=== PATIENT | male | born 1940 | race Caucasian/White ===

== ENCOUNTER → 2016-07-26 | Outpatient (CLI) | payer BC ==
[~2016-07-26] MED LIST: ASPI-435 PO; NXM/40 PO; [UNRECOGNIZED DRUG - CODE] PO
--- NOTE | 2016-07-26 16:35 | DIAGNOSTIC IMAGING REPORT ---
CHEST 2 VIEWS ROUTINE CLINICAL HISTORY: INFLUENZA A COMPARISON STUDY: 12/21/2015 FINDINGS: The cardiac and mediastinal contours remain stable. There is mild aortic tortuosity. There is no failure. There is no focal pulmonary consolidation. There are no pleural effusions. There are old right-sided rib fractures. There are minimal left basilar atelectatic changes.[ IMPRESSION: No active disease in the chest. Electronically signed by: Crow Whittaker M.D. 07/26/2016 4:34 PM Dictated Date/Time: 07/26/2016 4:33 PM
== END | disposition home or self-care (01) ==
LOC: C.RAD1850 16:13
PROVIDERS: ATTEND Family Medicine
DX: R05 Cough (principal); R50.9 Fever, unspecified; J10.1 Influenza due to other identified influenza virus with other respiratory manifestations

== ENCOUNTER 2017-08-11 23:00 | Emergency (ER) | payer BC ==
[~2017-08-11] VITALS: Ht 175.3 cm; Wt 91.1 kg
[2017-08-11 23:12] VITALS: TEMP 36.6; Ht 175.3 cm; Wt 91.1 kg
[2017-08-11] MEDS ORDERED: ONDANSETRON INJ 2 MG/ML 2 ML VIAL IV STA (23:27)
[2017-08-11] MEDS ORDERED: MoRPHine SULFATE 2 MG/ML CARP IV STA (23:27)
[2017-08-11] MEDS ORDERED: SODIUM CHLORIDE 0.9% 1000ML 1,000 ML IV STA (23:27)
[2017-08-11 23:54] LABS: BASO % 0.7 %; BASO ABS # 0.05 K/uL (0-0.2); EOS % 3.7 %; EOS ABS # 0.27 K/uL (0-0.5); HEMATOCRIT 42.7 % (42-52); HEMOGLOBIN 14.3 g/dL (14.0-18.0); IG# 0.02 K/uL (0.00-0.02); LYMPH % 24.3 %; LYMPH ABS # 1.76 K/uL (1.2-3.4); MEAN CELL VOLUME 86.4 fL (80-100); MEAN CORPUSCULAR HEMOGLOBIN 28.9 pg (25-34); MEAN CORPUSCULAR HGB CONC 33.5 g/dl (32-36); MEAN PLATELET VOLUME 10.2 fL (7.4-10.4); MONO % 11.1 %; NEUT % 59.9 %; NEUT ABS # 4.33 K/uL (1.4-6.5); PLATELET COUNT 193 K/uL (130-400); RED CELL DISTRIBUTION WIDTH CV 13.3 % (11.5-14.5); RED CELL DISTRIBUTION WIDTH SD 42.1 fL (36.4-46.3); WHITE BLOOD COUNT 7.23 K/uL (4.8-10.8)
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
[2017-08-12 00:33] LABS: ALBUMIN 3.8 gm/dl (3.4-5.0); CALCIUM 9.5 mg/dl (8.5-10.1); CREATININE 1.32 mg/dl (0.60-1.40); POTASSIUM 4.4 mmol/L (3.5-5.1); TOTAL PROTEIN 7.2 gm/dl (6.4-8.2)
[2017-08-12] MEDS ORDERED: MoRPHine SULFATE 2 MG/ML CARP IV STA (00:52)
[2017-08-12] MEDS ORDERED: LOSA50TA6 PO (01:00)
[2017-08-12] MEDS ORDERED: HydrALAZINE HCL 20 MG/ML VIAL IV. STA (01:33)
[2017-08-12] MEDS ORDERED: ACETAMINOPHEN 325 MG TAB PO STA (01:35)
[2017-08-12] MEDS ORDERED: CYCLOBENZAPRINE HCL 10 MG TAB PO STA (01:35)
[2017-08-12 02:24] VITALS: BP 162/92; PULSE 80; O2SAT 98
[2017-08-12] MEDS ORDERED: CYCL5TAB PO (02:41)
--- NOTE | 2017-08-12 06:50 | DIAGNOSTIC IMAGING REPORT ---
CHEST ONE VIEW PORTABLE CLINICAL HISTORY: Right upper back pain. COMPARISON STUDY: Chest radiograph July 31, 2016. FINDINGS: Multiple old right-sided rib fractures are noted. Lung volumes are normal. No pneumothorax or pleural effusion is noted. There is no consolidation to suggest pneumonia. Mild bibasilar opacities favor atelectasis. No evidence for pulmonary edema. IMPRESSION: No acute cardiopulmonary findings. No change in appearance of the chest. Electronically signed by: Valdemar Evans M.D. 08/12/2017 6:48 AM Dictated Date/Time: 08/12/2017 6:47 AM
--- NOTE | 2017-08-12 07:31 | DIAGNOSTIC IMAGING REPORT ---
CT SCAN OF THE ABDOMEN AND PELVIS WITHOUT CONTRAST CLINICAL HISTORY: right flank pain, kidney stone COMPARISON STUDY: 06/19/2006 TECHNIQUE: CT scan of the abdomen and pelvis was performed from the lung bases to the proximal femurs. Images are reviewed in the axial, sagittal, and coronal planes. IV contrast was not administered for this examination. A dose lowering technique was utilized adhering to the principles of ALARA. CT DOSE: 631.53 mGy.cm FINDINGS: Lower chest: There are mild dependent atelectatic changes Liver: The unenhanced liver is normal in size, contour, and attenuation. There is no intrahepatic biliary ductal dilatation. Gallbladder: Cholelithiasis Spleen: Mildly enlarged measuring 13 cm Pancreas: Unremarkable. Adrenal glands: Unremarkable. Kidneys: There is a punctate nonobstructing right renal calculus. There is no hydronephrosis. No ureteral or bladder calculi are visualized. There is an 8.4 cm left renal cyst. Bowel: Postsurgical changes are present within the sigmoid colon. There are no transition zones indicate bowel obstruction. There is no evidence of acute appendicitis. There is no evidence of acute diverticulitis. Peritoneum: There is no intraperitoneal free air or abdominal ascites. There is a right internal hernia which contains a knuckle of small bowel. There is no current evidence of obstruction. There is a fat-containing umbilical hernia. There are fat-containing ventral hernias. Vasculature: The abdominal aorta is normal in course and caliber. Adenopathy: None. Pelvic viscera: The bladder, and pelvic viscera are unremarkable. Skeletal structures: No destructive osseous lesions are seen. IMPRESSION: 1. Punctate nonobstructing left renal calculus 2. 8.4 cm left renal cyst 3. Cholelithiasis 4. No evidence of bowel obstruction. No evidence of free air. 5. Right internal hernia and multiple fat-containing ventral hernias Electronically signed by: Crow Whittaker M.D. 08/12/2017 7:30 AM Dictated Date/Time: 08/12/2017 7:25 AM
== END 2017-08-12 02:43 | disposition home or self-care (01) ==
LOC: C.EDB 23:01 → C.EDC 08-12 02:43
DX: S23.3XXA Sprain of ligaments of thoracic spine, initial encounter (principal); I10 Essential (primary) hypertension; X58.XXXA Exposure to other specified factors, initial encounter; Y93.H1 Activity, digging, shoveling and raking; Y92.008 Other place in unspecified non-institutional (private) residence as the place of occurrence of the external cause; Z79.82 Long term (current) use of aspirin; Z87.442 Personal history of urinary calculi; Z88.8 Allergy status to other drugs, medicaments and biological substances; Z80.9 Family history of malignant neoplasm, unspecified; Z83.79 Family history of other diseases of the digestive system; Z82.49 Family history of ischemic heart disease and other diseases of the circulatory system

== ENCOUNTER → 2017-08-16 | Outpatient (CLI) | payer BC ==
[~2017-08-16] MED LIST changes: +CYCL5TAB PO; +LOSA50TA6 PO; -[UNRECOGNIZED DRUG - CODE] PO
[2017-08-16 09:51] LABS: BLOOD UREA NITROGEN 21 mg/dl (7-18); CALCIUM 9.8 mg/dl (8.5-10.1); CARBON DIOXIDE 30 mmol/L (21-32); CREATININE 1.43 mg/dl (0.60-1.40); GLUCOSE 97 mg/dl (70-99); POTASSIUM 4.3 mmol/L (3.5-5.1); SODIUM 139 mmol/L (136-145)
== END | disposition home or self-care (01) ==
LOC: C.LAB 08:51
PROVIDERS: ATTEND Physician Assistant
DX: I10 Essential (primary) hypertension (principal)

== ENCOUNTER → 2017-08-20 | Outpatient (CLI) | payer BC ==
--- NOTE | 2017-08-20 14:03 | DIAGNOSTIC IMAGING REPORT ---
THORACIC SPINE 3 VIEWS ROUTINE HISTORY: 77 years-old Male S29.019A acute severe right-sided back and rib pain COMPARISON: Chest radiographs 07/26/2016 TECHNIQUE: 3 views of the thoracic spine FINDINGS: Multilevel endplate spurring with intervertebral disc space narrowing is noted throughout the thoracic spine. The upper thoracic segments are somewhat subvisualized secondary to positioning. Alignment is satisfactory. No acute compression deformity identified. Imaged lung elliott and soft tissues are unremarkable. There is atherosclerosis of the aorta. The cardiac silhouette appears enlarged however is only partially imaged. IMPRESSION: Degenerative changes without acute fracture or subluxation identified. The above report was generated using voice recognition software. It may contain grammatical, syntax or spelling errors. Electronically signed by: Reji Tavarez M.D. 08/20/2017 2:02 PM Dictated Date/Time: 08/20/2017 2:00 PM
--- NOTE | 2017-08-20 14:11 | DIAGNOSTIC IMAGING REPORT ---
R RIBS UNILATERAL WITH PA CHEST CLINICAL HISTORY: 77 years-old Male presenting with S29.019A. TECHNIQUE: Frontal and oblique views of the right ribs as well as PA view of the chest were obtained. COMPARISON: Chest x-ray from 08/12/2017. FINDINGS: Atherosclerosis and tortuosity of the thoracic aorta. Cardiac silhouette normal in size. Lungs and pleural spaces remain clear. Deformities of the right posterior lateral sixth through ninth ribs consistent with old fracture deformities. No convincing evidence of an acute displaced right rib fracture. Chronic fracture of the lesser tubercle of the right humerus. Moderate stool burden in the right colon. IMPRESSION: 1. No convincing evidence of acute displaced right rib fracture. 2. Multiple old right rib fractures. 3. No acute cardiopulmonary disease. Electronically signed by: Сергей Pereyra M.D. 08/20/2017 2:09 PM Dictated Date/Time: 08/20/2017 2:06 PM
== END | disposition home or self-care (01) ==
LOC: C.RAD 12:56
PROVIDERS: ATTEND Physician Assistant
DX: S29.019A Strain of muscle and tendon of unspecified wall of thorax, initial encounter (principal); X58.XXXA Exposure to other specified factors, initial encounter; Z88.8 Allergy status to other drugs, medicaments and biological substances

== ENCOUNTER → 2017-08-21 | Outpatient (CLI) | payer BC ==
[~2017-08-21] MED LIST changes: +GADAVIST IV PRN
--- NOTE | 2017-08-21 13:05 | DIAGNOSTIC IMAGING REPORT ---
ORBITS FOR MRI HISTORY: Pre-MRI pre-MRI screening. COMPARISON: None. FINDINGS: There are no radiopaque foreign bodies identified within the orbits. IMPRESSION: No radiopaque foreign bodies identified within the orbits. The above report was generated using voice recognition software. It may contain grammatical, syntax or spelling errors. Electronically signed by: Missael Ward M.D. 08/21/2017 1:03 PM Dictated Date/Time: 08/21/2017 1:03 PM
--- NOTE | 2017-08-21 14:21 | DIAGNOSTIC IMAGING REPORT ---
MRI OF THE ABDOMEN AND PELVIS WITH AND WITHOUT CONTRAST RENAL PROTOCOL CLINICAL HISTORY: Left renal lesion. Right-sided pain. COMPARISON STUDY: CT of the abdomen and pelvis August 12, 2017. TECHNIQUE: Utilizing a 1.5 Mar[place] magnet and dedicated coil, multiplanar, multiecho imaging of the abdomen was performed pre and postcontrast administration. Injection of 9 cc of Gadavist IV was uneventful. Post contrast imaging was performed utilizing dynamic enhancement. FINDINGS: Note is made of a 9.1 cm T2 hyperintense slightly lobulated nonenhancing lesion arising from the lower pole of the left kidney which is consistent with a cyst. There is no solid renal lesion. No hydronephrosis is present. The liver, spleen, adrenal glands and pancreas are normal. Note is made of a 1.4 cm gallstone within the gallbladder. There is no pericholecystic fluid or infiltration. There is no biliary or pancreatic ductal dilatation. No abdominal lymphadenopathy or ascites is noted. No foci of suspicious marrow replacement are identified within visualized skeletal structures. IMPRESSION: 1. 9.1 cm left renal cyst. No solid renal lesion. 2. Cholelithiasis. Electronically signed by: Valdemar Evans M.D. 08/21/2017 2:20 PM Dictated Date/Time: 08/21/2017 2:14 PM
== END | disposition home or self-care (01) ==
LOC: C.MRI 12:10
PROVIDERS: ATTEND Physician Assistant
DX: N28.1 Cyst of kidney, acquired (principal); K80.20 Calculus of gallbladder without cholecystitis without obstruction; Z88.8 Allergy status to other drugs, medicaments and biological substances

== ENCOUNTER 2019-12-01 09:21 | Observation (INO) ==
--- NOTE | 2019-12-01 10:09 | Emergency Department Note ---
History of Present Illness General Chief complaint: Stroke/CVA Symptoms Stated complaint: LEFT SIDE IS WORKING RIGHT Time Seen by Provider: 12/01/19 09:34 History of Present Illness Provider complaint: Left upper extremity weakness Onset (ago): hour(s) (Patient states he noticed it at 5:30 AM when he woke up. Last known well was 1 when he went to bed at 11 PM.) 5 Location: head, lower extremity and left Maximum Pain Intensity: 3 Current Pain Intensity: 3 Quality: + aching 79-year-old male presents emergency department with left upper extremity weakness. He states he when he woke up at 5:30 AM he states that he noticed he was having difficulty holding a pen and writing with his left hand. He reports he felt fine when he went to bed at 11 PM last night. Last known well was 5:30 AM. Patient also reports a mild headache that is dull and aching. He has not any blood thinners. He denies any falls. No fevers. Home Medications Home Medications Medication Instructions Recorded Confirmed Type aspirin 81 mg PO QAM 09/23/18 12/01/19 History esomeprazole magnesium [Nexium] 40 mg PO BIDM 09/23/18 12/01/19 History losartan 50 mg PO BIDM 09/23/18 12/01/19 History amlodipine 5 mg PO QAM 12/01/19 12/01/19 History ibuprofen 200 mg PO Q6H PRN 12/01/19 12/01/19 History Allergies Allergy/AdvReac Type Severity Reaction Status Date / Time lisinopril AdvReac Unknown cough Verified 12/01/19 12:31 Past Med/Surg History Medical History History of kidney stones (Chronic) HTN (hypertension) (Chronic) Surgical History H/O left knee surgery (Resolved) H/O right knee surgery (Resolved) Social History Communication Ability: Effective Weed Burner Required: No Beliefs That Will Affect Care: None Current Living Situation: Spouse Other Information That Helps Us Care for You: No Feels Safe at Home: Yes Safety Concerns: Feels Safe At This Time Smoking Status: Never smoker Hx Alcohol Use: No Hx Substance Use: No Review of Systems A total of 10 systems reviewed and were otherwise negative Physical Exam Vital Signs Vital Signs - 24 hr 12/01/19 09:32 12/01/19 10:07 12/01/19 11:00 Temperature 36.9 C Temperature Source Oral Pulse Rate 64 57 L 56 L Pulse Rate from SpO2 Sensor 56 L Respiratory Rate 18 15 15 Respiratory Effort / Characteristics Non-Labored Spontaneous Respiratory Depth Normal Blood Pressure 203/92 H 167/100 H 187/104 H Blood Pressure Mean 129 140 154 Pulse Oximetry 97 96 Oxygen Delivery Method Room Air Sepsis Recent Fever Within 48 Hours No Sepsis New/Unexplained Change in Mental Status No Sepsis Action Taken by Nursing No Action Required 12/01/19 11:30 12/01/19 12:04 Temperature Temperature Source Pulse Rate 58 L 55 L Pulse Rate from SpO2 Sensor 58 L 54 L Respiratory Rate 20 20 Respiratory Effort / Characteristics Respiratory Depth Blood Pressure 204/128 H 175/86 H Blood Pressure Mean 158 101 Pulse Oximetry 97 96 Oxygen Delivery Method Sepsis Recent Fever Within 48 Hours Sepsis New/Unexplained Change in Mental Status Sepsis Action Taken by Nursing Physical Exam GENERAL: He is oriented to person, place, and time. He appears well-developed and well-nourished. He does not appear distressed. HENT: Exam performed. - Head: Normocephalic and atraumatic. - Right Ear: External ear normal. No mastoid tenderness. - Left Ear: External ear normal. No mastoid tenderness. - Mouth/Throat: The oropharynx is clear and moist. No trismus in the jaw. No dental abscesses or uvula swelling. No oropharyngeal exudate or tonsillar abscesses. EYES: Conjunctivae and EOM are normal. Pupils are equal, round, and reactive to light. Right eye exhibits no discharge. Left eye exhibits no discharge. No scleral icterus. NECK: Normal range of motion. Neck supple. No JVD present. No spinous process tenderness present. No carotid bruit present. No rigidity. No tracheal deviation and normal range of motion present. No Brudzinski's sign and no Kernig's sign noted. CV: Normal rate, regular rhythm, normal heart sounds and intact distal pulses. There is no peripheral edema. Palpable radial pulses bue. PULM/CHEST: Effort normal and breath sounds normal. No respiratory distress. No stridor. He has no wheezes. He has no rales. - Chest Wall: He exhibits no tenderness. ABD: The abdomen is soft. Bowel sounds are normal. He has no distension. No mass is present. There is no tenderness. There is no rebound, no guarding, no Delgadillo's sign and no tenderness at McBurney's point. Rovsig negative. MUSC/SKEL: Normal range of motion. There is no peripheral edema, tenderness or deformity. LYMPH: No cervical adenopathy. NEURO: He is alert and oriented to person, place, and time. Decreased strength in the left upper extremity with some mild left upper extremity drift. No cranial nerve deficit or sensory deficit. Coordination and gait normal. GCS eye subscore is 4. GCS verbal subscore is 5. GCS motor subscore is 6. Cerebellar tests wnl. NIHSS: 1 (5 a: 1) SKIN: Skin is warm and dry. He is not diaphoretic. PSYCH: He has a normal mood and affect. Behavior is normal. Judgment and thought content normal. Course Course 1007: The patient was evaluated in room B2. A complete history and physical exam was performed. No code stroke was called as last known well normal was last night when the patient went to bed. Cardiac monitoring: An order was placed for continuous cardiac monitoring. The monitor shows a rate of 60 with sinus rhythm 1200: Vital signs stable. CT and labs within normal limits. Patient will be ad mitted for stroke. [facility] hospitalist Dr. Malone notified of patient. Administered Medications Acetaminophen (Tylenol) 650 mg PO Q4H PRN PRN Reason: Pain or Fever Stop: 12/31/19 15:12 Last Admin: 12/01/19 16:42 Dose: 650 mg Documented by: [id number] Ioversol (Optiray 320 125ml) 120 ml IV ONCE PRN PRN Reason: Interaction Checking Stop: 12/05/19 13:47 Last Admin: 12/01/19 13:48 Dose: 120 ml Documented by: [id number] Losartan Potassium (Cozaar) 50 mg PO BIDM [facility] Stop: 12/31/19 16:59 Last Admin: 12/01/19 16:40 Dose: 50 mg Documented by: [id number] Pantoprazole Sodium (Protonix) 40 mg PO BIDM [facility] Stop: 12/31/19 16:59 Last Admin: 12/01/19 16:40 Dose: 40 mg Documented by: [id number] Discontinued Medications Clopidogrel Bisulfate (Plavix) 75 mg PO ONE STA Stop: 12/01/19 12:28 Last Admin: 12/01/19 13:32 Dose: Not Given Documented by: [id number] Clopidogrel Bisulfate (Plavix) 300 mg PO NOW STA Stop: 12/01/19 12:39 Last Admin: 12/01/19 13:08 Dose: 300 mg Documented by: [id number] Medical Decision Making Laboratory Data Result diagrams: 12/01/19 10:11 12/01/19 10:11 Lab Results 12/01/19 12/01/19 12/01/19 Range/Units 10:11 10:11 10:11 WBC 6.66 (4.8-10.8) K/uL RBC 4.93 (4.7-6.1) M/uL Hgb 14.5 (14.0-18.0) g/dL Hct 43.6 (42-52) % MCV 88.4 (80-100) fL MCH 29.4 (25-34) pg MCHC 33.3 (32-36) g/dL RDW Std Deviation 42.5 (36.4-46.3) fL RDW Coeff of Luca 13.1 (11.5-14.5) % Plt Count 221 (130-400) K/uL MPV 10.0 (7.4-10.4) fL Immature Gran % (Auto) 0.2 % Neut % (Auto) 63.6 % Lymph % (Auto) 22.8 % [place] % (Auto) 9.9 % Eos % (Auto) 2.9 % Baso % (Auto) 0.6 % Immature Gran # (Auto) 0.01 (0.00-0.02) K/uL Neut # (Auto) 4.24 (1.4-6.5) K/uL Lymph # (Auto) 1.52 (1.2-3.4) K/uL [place] # (Auto) 0.66 H (0.11-0.59) K/uL Eos # (Auto) 0.19 (0-0.5) K/uL Baso # (Auto) 0.04 (0-0.2) K/uL PT 10.3 (9.0-12.0) Seconds INR 1.0 (0.9-1.1) APTT 25.6 (21.0-31.0) Seconds PTT Ratio 0.9 Sodium (136-145) mmol/L Potassium (3.5-5.1) mmol/L Chloride (98-107) mmol/L Carbon Dioxide (21-32) mmol/L Anion Gap (3-11) BUN (7-18) mg/dl Creatinine (0.6-1.4) mg/dl Est Cr Clr Drug Dosing ml/min Est GFR ( Amer) Est GFR (Non-Af Amer) BUN/Creatinine Ratio (10-20) Glucose (70-99) mg/dl POC Glucose (70-99) mg/dl Calcium (8.5-10.1) mg/dl Magnesium (1.8-2.4) mg/dl Total Bilirubin (0.2-1) mg/dl AST (15-37) U/L ALT (12-78) U/L Alkaline Phosphatase (45-117) U/L Troponin I (0-0.045) ng/ml Total Protein (6.4-8.2) gm/dl Albumin (3.4-5.0) gm/dl Globulin (2.5-4.0) gm/dl Albumin/Globulin Ratio (0.9-2) Blood Type O Positive Antibody Screen NEGATIVE 12/01/19 12/01/19 Range/Units 10:11 10:24 WBC (4.8-10.8) K/uL RBC (4.7-6.1) M/uL Hgb (14.0-18.0) g/dL Hct (42-52) % MCV (80-100) fL MCH (25-34) pg MCHC (32-36) g/dL RDW Std Deviation (36.4-46.3) fL RDW Coeff of Luca (11.5-14.5) % Plt Count (130-400) K/uL MPV (7.4-10.4) fL Immature Gran % (Auto) % Neut % (Auto) % Lymph % (Auto) % [place] % (Auto) % Eos % (Auto) % Baso % (Auto) % Immature Gran # (Auto) (0.00-0.02) K/uL Neut # (Auto) (1.4-6.5) K/uL Lymph # (Auto) (1.2-3.4) K/uL [place] # (Auto) (0.11-0.59) K/uL Eos # (Auto) (0-0.5) K/uL Baso # (Auto) (0-0.2) K/uL PT (9.0-12.0) Seconds INR (0.9-1.1) APTT (21.0-31.0) Seconds PTT Ratio Sodium 139 (136-145) mmol/L Potassium 4.5 (3.5-5.1) mmol/L Chloride 109 H (98-107) mmol/L Carbon Dioxide 27 (21-32) mmol/L Anion Gap 4.0 (3-11) BUN 18 (7-18) mg/dl Creatinine 1.26 (0.6-1.4) mg/dl Est Cr Clr Drug Dosing 50.6 ml/min Est GFR ( Amer) 61.6 Est GFR (Non-Af Amer) 53.1 BUN/Creatinine Ratio 14.3 (10-20) Glucose 105 H (70-99) mg/dl POC Glucose 104 H (70-99) mg/dl Calcium 10.2 H (8.5-10.1) mg/dl Magnesium 2.2 (1.8-2.4) mg/dl Total Bilirubin 0.5 (0.2-1) mg/dl AST 12 L (15-37) U/L ALT 25 (12-78) U/L Alkaline Phosphatase 96 (45-117) U/L Troponin I < 0.015 (0-0.045) ng/ml Total Protein 7.6 (6.4-8.2) gm/dl Albumin 3.9 (3.4-5.0) gm/dl Globulin 3.7 (2.5-4.0) gm/dl Albumin/Globulin Ratio 1.1 (0.9-2) Blood Type Antibody Screen Imaging Data Radiologist's Impression: CT head/brain wo con CLINICAL HISTORY: Stroke evaluation COMPARISON STUDY: Noncontrast head CT dated 02/04/2016, MRI the brain performed April 2016 TECHNIQUE: Axial CT of the brain is performed from the vertex to the skull base. IV contrast was not administered for this examination. A dose lowering technique was utilized adhering to the principles of ALARA. CT DOSE: 921.40 mGy.cm FINDINGS: No intra or extra-axial mass lesions are visualized. There is no CT evidence of acute cortical infarction. There is no evidence of midline shift. There is no acute hemorrhage. No calvarial fractures are visualized. There are patchy white matter hypodensities likely on a small vessel basis. There is a chronic appearing right cerebellar lacunar infarct which was not visualized the preceding study. There is a chronic appearing tiny lacunar infarct within the periventricular deep white matter, a finding also not visualized on the prior study. There is no evidence of pathologic ventricular dilatation. There is no evidence of acute sinusitis IMPRESSION: No acute intracranial findings ACT 112: Negative or not required by law. Electronically signed by: Crow Whittaker M.D. 12/01/2019 10:52 AM Dictated: 12/01/19 1050 Transcribed: 12/01/19 105 ECG Data Indication: + other (Stroke) Rate (beats per minute): 56 Rhythm: + normal sinus ECG Intervals/blocks: + Normal QRS, + Normal MA and + Normal QT-c ECG ST segments: + Normal ST segments and + T-wave inversions (Lead III only) MDM Narrative Vital signs stable. CT and labs within normal limits. Patient will be admitted for stroke. [facility] hospitalist Dr. Malone notified of patient. Impression & Plan Stroke-like symptoms Discharge Plan Visit Data *Final* Discharge Date/Time: 12/01/19 14:20 Chief Complaint: Stroke/CVA Symptoms Stated Complaint: LEFT SIDE IS WORKING RIGHT ED Provider: Angel Escalante Discharge Problem: Stroke-like symptoms Patient Disposition: Admitted As Inpatient Discharge Instructions Interventions: ED Discharge Assessment Last Done: 12/01/19 14:20
[2019-12-01 10:21] LABS: Basophils # (auto) 0.04 K/uL (0-0.2); Basophils % (auto) 0.6 %; Eosinophils # (auto) 0.19 K/uL (0-0.5); Eosinophils % (auto) 2.9 %; Hematocrit (blood only) 43.6 % (42-52); Hemoglobin 14.5 g/dL (14.0-18.0); Immature Granulocytes # (auto) 0.01 K/uL (0.00-0.02); Immature Granulocytes % (auto) 0.2 %; Lymphocytes # (auto) 1.52 K/uL (1.2-3.4); Lymphocytes % (auto) 22.8 %; Mean Corpuscular Hemoglobin 29.4 pg (25-34); Mean Corpuscular Hgb Conc 33.3 g/dL (32-36); Mean Corpuscular Volume 88.4 fL (80-100); Monocytes # (auto) 0.66 K/uL (0.11-0.59); Monocytes % (auto) 9.9 %; Neutrophils # (auto) 4.24 K/uL (1.4-6.5); Neutrophils % (auto) 63.6 %; Platelet Count 221 K/uL (130-400); RDW Coefficient of Variation 13.1 % (11.5-14.5); RDW Standard Deviation 42.5 fL (36.4-46.3); Red Blood Count 4.93 M/uL (4.7-6.1); White Blood Count 6.66 K/uL (4.8-10.8)
[2019-12-01 10:32] LABS: Partial Thromboplastin Ratio 0.9; Partial Thromboplastin Time 25.6 Seconds (21.0-31.0); Prothrombin Time 10.3 Seconds (9.0-12.0)
[2019-12-01 10:37] LABS: Alanine Aminotransferase 25 U/L (12-78); Albumin Level 3.9 gm/dl (3.4-5.0); Aspartate Aminotransferase 12 U/L (15-37); BUN Creatinine Ratio 14.3 (10-20); Blood Urea Nitrogen 18 mg/dl (7-18); Calcium 10.2 mg/dl (8.5-10.1); Carbon Dioxide 27 mmol/L (21-32); Chloride 109 mmol/L (98-107); Creatinine Clr Calc Pharmacy 50.6 ml/min; Est GFR (African American) 61.6; Est GFR (Non-African American) 53.1; Glucose 105 mg/dl (70-99); Magnesium 2.2 mg/dl (1.8-2.4); Potassium 4.5 mmol/L (3.5-5.1); Sodium 139 mmol/L (136-145)
[2019-12-01 10:42] LABS: Albumin Globulin Ratio 1.1 (0.9-2); Alkaline Phosphatase 96 U/L (45-117); Bilirubin,Total 0.5 mg/dl (0.2-1); Globulin 3.7 gm/dl (2.5-4.0); Total Protein 7.6 gm/dl (6.4-8.2); Troponin I < 0.015 ng/ml (0-0.045)
--- NOTE | 2019-12-01 10:53 | CT Scan Report ---
CT head/brain wo con CLINICAL HISTORY: Stroke evaluation COMPARISON STUDY: Noncontrast head CT dated 02/04/2016, MRI the brain performed April 2016 TECHNIQUE: Axial CT of the brain is performed from the vertex to the skull base. IV contrast was not administered for this examination. A dose lowering technique was utilized adhering to the principles of ALARA. CT DOSE: 921.40 mGy.cm FINDINGS: No intra or extra-axial mass lesions are visualized. There is no CT evidence of acute cortical infarc tion. There is no evidence of midline shift. There is no acute hemorrhage. No calvarial fractures ar e visualized. There are patchy white matter hypodensities likely on a small vessel basis. There is a chronic appear ing right cerebellar lacunar infarct which was not visualized the preceding study. There is a chronic appearing tiny lacunar infarct within the periventricular deep white matter, a finding also not visu alized on the prior study. There is no evidence of pathologic ventricular dilatation. There is no evidence of acute sinusitis IMPRESSION: No acute intracranial findings ACT 112: Negative or not required by law. Electronically signed by: Crow Whittaker M.D. 12/01/2019 10:52 AM
--- NOTE | 2019-12-01 12:16 | History & Physical Report ---
Date of Service December 01, 2019 Assessment & Plan (1) Stroke-like symptoms: Residual left upper extremity generalized weakness not attributable to a dermatome - suspect CVA Admit under observation to PCU Already taking ASA, will give loading dose clopidogrel now and continue on ASA, Plavix tomorrow pending neurology review CT head - no acute findings CTA head/neck MRI brain w/o contrast Hold outpatient ibuprofen Will defer starting statin based on MRI results, if no stroke will defer to ara rology with lipid panel in AM Monitor for arrhythmia on telemetry Hold off lowering BP acutely unless sBP > 220 or dBP > 120 Consult neurology (2) HTN (hypertension): As above. Continue his usual losartan but hold off lower BP acutely unless sBP > 220 or dBP > 120. (3) DVT prophylaxis: Lovenox 40mg SQ HS Admission and Anticipated Discharge Date Admission Date: 12/01/2019 History of Present Illness Chief Complaint: Left upper extremity weakness Primary Care Provider: Jil Hoang MD Ronak Wagner is an 79 year old right-hand dominant male with hypertension, no prior CVA or OK who presents to the ER with left upper extremity weakness. Last known well at 11pm last night when he went to bed. On waking up this morning he noticed generalized weakness in his left arm with lack of control. Found he couldn't report manager much. Possibly also had some left sided facial droop noticed by his daughter and the patient in the mirror which has now resolved. Never had this previously. No change in sensation in this arm. No prior neck pain or surgeries. No change to vision, speech or hearing. Walking around since without any significant issues. He takes an aspirin daily for primary prevention and took all his usual medications this morning. No fever, chills, shortness of breath, cough, loss of taste or smell. No known COVID-19 exposure. Allergies Allergy/AdvReac Type Severity Reaction Status Date / Time lisinopril AdvReac Unknown cough Verified 12/01/19 12:31 Home Medications Home Medications Medication Instructions Recorded Confirmed Type aspirin 81 mg PO QAM 09/23/18 12/01/19 History esomeprazole magnesium [Nexium] 40 mg PO BIDM 09/23/18 12/01/19 History losartan 50 mg PO BIDM 09/23/18 12/01/19 History amlodipine 5 mg PO QAM 12/01/19 12/01/19 History ibuprofen 200 mg PO Q6H PRN 12/01/19 12/01/19 History Past Med/Surg History Medical History History of kidney stones (Chronic) HTN (hypertension) (Chronic) Surgical History H/O left knee surgery (Resolved) H/O right knee surgery (Resolved) Social History Communication Ability: Effective Autocad Designer Required: No Beliefs That Will Affect Care: None Current Living Situation: Spouse Other Information That Helps Us Care for You: No Feels Safe at Home: Yes Safety Concerns: Feels Safe At This Time Smoking Status: Never smoker Hx Alcohol Use: No Hx Substance Use: No Review of Systems Review of Systems: All systems reviewed & are unremarkable except as noted in HPI & below Physical Exam Constitutional: WD/WN, vitals as above Eyes: PERRL, conjunctivae normal, anicteric sclerae EOM intact bilaterally ENMT: external ear and nose normal, oropharynx normal Neck: trachea midline, no thyromegaly Respiratory: normal respiratory effort, lungs clear to auscultation Cardiovascular: Rate/Rhythm: regular rate and regular rhythm Heart Sounds: no murmur Extremities: normal capillary refill; no calf tenderness and no pedal edema Gastrointestinal (Abdomen): normal bowel sounds, soft, nontender, no hepatosplenomegaly Musculoskeletal: Head/Neck/Chest: normocephalic and head atraumatic Extremities: extremities normal to inspection and + abnormal strength (generalized LUE weakness 4/5 (see below)); normal muscle tone, no muscle atrophy, no cyanosis and no clubbing Skin: no rashes, warm and dry Neurologic: CN's II-XI intact bilaterally, moves all extremities, + focal motor deficit (Slasher Tender Helper strength left 4/5, right 5/5 (see below)) and awake; not confused Speech / Cognition: normal speech, no expressive aphasia, no receptive aphasia and normal cognition Motor/Sensory: + pronator drift (moderate on left side); no tremor and no sensory deficit Psychiatric: A+Ox3, euthymic affect Lymphatic: no cervical or axillary lymphadenopathy Results & Data Results & Data ([facility]) Vital Signs (Past 12 Hours) Vital Signs Temp Pulse Resp BP Pulse Ox 12/01/19 12:04 55 L 20 175/86 H 96 12/01/19 11:30 58 L 20 204/128 H 97 12/01/19 11:00 56 L 15 187/104 H 96 12/01/19 10:07 57 L 15 167/100 H 12/01/19 09:32 36.9 C 64 18 203/[address] head/brain wo con IMPRESSION: No acute intracranial findings ECG Indication: other (Suspected CVA) Rate (beats per minute): 56 Rhythm: sinus bradycardia Findings: no acute ischemic change Comparison ECG Date: from (08/12/2017) Change: no significant change Code Status & VTE Plan Code Status Full VTE Prophylaxis Plan VTE Prophylaxis will be ordered: Yes PG Care Time/CCT Total # of Minutes Spent Total Time Spent with Patient: Total time spent is greater than 50% in coordination of care (as documented) at patient's floor/unit and/or counseling patient: Coding Level of Care Code 89625 OBS Care - Level 3 Diagnoses Stroke-like symptoms R29.90 HTN (hypertension) I10 DVT prophylaxis Z29.9
[2019-12-01] MEDS ORDERED: CLOPIDOGREL BISULFATE 75 MG TAB PO STA (12:27)
[2019-12-01] MEDS ORDERED: CLOPIDOGREL BISULFATE 300 MG TAB PO STA (12:38)
[2019-12-01] MEDS ORDERED: OPTIRAY 320 125ml IV PRN (13:48)
--- NOTE | 2019-12-01 13:59 | CT Scan Report ---
NECK CTA HISTORY: Left upper extremity weakness, resolved L facial droop TECHNIQUE: Multiaxial CT images of the neck were performed following the intravenous administration o f contrast to evaluate the major cervical vessels. Maximum intensity projection images were also obta ined. All measurements were calculated based on NASCET criteria. A dose lowering technique was utili zed adhering to the principles of ALARA. COMPARISON STUDY: Head CT 12/01/2019. Carotid Doppler 02/11/2006. FINDINGS: The aortic arch and proximal great vessels are widely patent. Focal narrowing of the proxi mal right vertebral artery best seen on images 137 through 149. This demonstrates up to 70% focal navin nosis. This is secondary to the anterolateral plaque at this location. Otherwise, the remaining right vertebral artery and left vertebral artery are patent. The left vertebral artery significantly hypop lastic in comparison to the right. Mild atherosclerotic plaque seen within the left common carotid ar kofi and bilateral carotid bifurcations. No significant stenosis, occlusion, or dissection within the internal carotid arteries. There is approximately 40% narrowing within the mid left common carotid a rtery. The right common carotid artery is widely patent. No pneumothorax. No suspicious lytic are delia stic osseous lesions. IMPRESSION: 1. 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 2. Approximately 40% narrowing within the mid left common carotid artery. 3. No significant stenosis within the bilateral internal carotid arteries. 4. Hypoplastic left vertebral artery. ACT 112: Negative or not required by law. Electronically signed by: Bandar Swartz M.D. 12/01/2019 1:57 PM
--- NOTE | 2019-12-01 14:11 | CT Scan Report ---
CT angio head w con CLINICAL HISTORY: 79 years-old Male with LUE weakness, resolved L facial droop. Acute strokelike s ymptoms with left upper extremity weakness and left-sided facial droop COMPARISON STUDY: Head CT and CTA neck of same day TECHNIQUE: Following the IV administration of 120 cc of Optiray 320, CT angiogram of the brain was pe rformed from the skull base to the vertex. Images are reviewed in the axial, sagittal, and coronal pl anes. 3-D MIPS images are created and assessed. IV contrast was administered without complication. Al l measurements were obtained according to NASCET criteria. A dose lowering technique was utilized adh ering to the principles of ALARA. FINDINGS: The imaged bilateral internal carotid arteries are patent. The bilateral anterior and middle cerebral arteries are also patent. The right vertebral artery is dominant. Hypoplastic V4 segment of the left vertebral artery. Mild multifocal luminal narrowing of the patent basilar artery. Mild multifocal edie luis armando narrowing of the posterior cerebral arteries. No aneurysm, dissection, high-grade stenosis or p roximal branch occlusion. The right transverse sinus appears hypoplastic. No abnormal intracranial en hancement. IMPRESSION: Unremarkable CTA of the head without aneurysm, dissection, high-grade stenosis or proxima l branch occlusion. ACT 112: Negative or not required by law. The above report was generated using voice recognition software. It may contain grammatical, syntax o r spelling errors. Electronically signed by: Reji Tavarez M.D. 12/01/2019 2:10 PM
[2019-12-01] MEDS ORDERED: ACETAMINOPHEN 325 MG TAB PO PRN (15:13)
[2019-12-01] MEDS ORDERED: ONDANSETRON INJ 2 MG/ML 2 ML VIAL IV PRN (15:13)
[2019-12-01] MEDS ORDERED: POLYETHYLENE (MIRALAX) 17 GM PACK PO PRN (15:13)
[2019-12-01] MEDS ORDERED: ALUMINUM/MAGNESIUM SUSP 30 ML UDC PO PRN (15:13)
[2019-12-01] MEDS ORDERED: MAGNESIUM HYDROXIDE SUSP 30 ML UDC PO PRN (15:13)
[2019-12-01] MEDS ORDERED: PHARMACIST DISCHARGE MED REC CONSULT PRN (15:13)
[2019-12-01] MEDS: PANTOprazole 40 MG TAB PO SCH (16:40)
[2019-12-01] MEDS: LOSARTAN POTASSIUM 50 MG TAB PO SCH (16:40)
--- NOTE | 2019-12-01 17:10 | Electrocardiogram Report ---
Test Reason : Blood Pressure : / mmHG Vent. Rate : 056 BPM Atrial Rate : 056 BPM P-R Int : 188 ms QRS Dur : 092 ms QT Int : 424 ms P-R-T Axes : 024 058 024 degrees QTc Int : 409 ms Sinus bradycardia Otherwise normal ECG When compared with ECG of 12-AUG-2017 01:48, No significant change was found Confirmed by Nathan Allison ([id number]) on 12/01/2019 5:09:55 PM Referred By: REFERRED SELF Confirmed By:Nathan Allison
--- NOTE | 2019-12-01 18:46 | Magnetic Resonance Report ---
Brain MRI WITHOUT CONTRAST HISTORY: LUE weakness, resolved L facial droop TECHNIQUE: Multiplanar multisequence MRI of the brain was performed without the use of contrast. COMPARISON STUDY: Head CT 12/01/2019. FINDINGS: There is a 1.4 cm focus of restricted diffusion seen within the right cerebellar hemisphere this is adjacent to an old infarct and is consistent with an acute infarct. There are also 2 punctat e foci of restricted diffusion seen within the right posterior frontal lobe at the high convexity bes t seen on images 19 and 21. These are consistent with 2 additional punctate acute infarcts. Periventr icular and subcortical white matter T2 hyperintensity is nonspecific but favors mild microvascular is chemic change. Mild atrophic changes seen within the brain. There is no mass, hematoma, midline shift . The midline structures appear intact. Mild mucosal thickening within the left maxillary sinus. The mastoid air cells are clear. The major vascular flow-voids at the skull base are well-maintained. IMPRESSION: 1. Acute small lacunar infarct within the right cerebellar hemisphere as well as 2 additional punctat e acute infarcts within the right posterior frontal lobe at the high convexity. 2. Mild atrophy and microvascular ischemic changes. 3. These findings were called/faxed to the referring physician following dictation. ACT 112: Negative or not required by law. Electronically signed by: Bandar Swartz M.D. 12/01/2019 6:45 PM
[2019-12-01] MEDS ORDERED: ATORVASTATIN 40 MG TAB PO SCH (21:00)
[2019-12-01] MEDS ORDERED: ENOXAPARIN INJ 40 MG/0.4 ML SYR SQ SCH (21:00)
[2019-12-02 07:40] LABS: Basophils # (auto) 0.06 K/uL (0-0.2); Basophils % (auto) 0.9 %; Eosinophils # (auto) 0.22 K/uL (0-0.5); Eosinophils % (auto) 3.4 %; Hematocrit (blood only) 42.4 % (42-52); Hemoglobin 14.3 g/dL (14.0-18.0); Immature Granulocytes # (auto) 0.02 K/uL (0.00-0.02); Immature Granulocytes % (auto) 0.3 %; Lymphocytes # (auto) 1.44 K/uL (1.2-3.4); Lymphocytes % (auto) 22.4 %; Mean Corpuscular Hemoglobin 29.6 pg (25-34); Mean Corpuscular Hgb Conc 33.7 g/dL (32-36); Mean Corpuscular Volume 87.8 fL (80-100); Mean Platelet Volume 10.1 fL (7.4-10.4); Monocytes # (auto) 0.46 K/uL (0.11-0.59); Monocytes % (auto) 7.1 %; Neutrophils # (auto) 4.24 K/uL (1.4-6.5); Neutrophils % (auto) 65.9 %; Platelet Count 214 K/uL (130-400); RDW Standard Deviation 41.8 fL (36.4-46.3); Red Blood Count 4.83 M/uL (4.7-6.1); White Blood Count 6.44 K/uL (4.8-10.8)
[2019-12-02] MEDS: LOSARTAN POTASSIUM 50 MG TAB PO SCH ×2 (08:01→16:02)
[2019-12-02] MEDS: PANTOprazole 40 MG TAB PO SCH ×2 (08:01→16:02)
[2019-12-02 08:09] LABS: BUN Creatinine Ratio 12.7 (10-20); Calcium 10.4 mg/dl (8.5-10.1); Est GFR (African American) 58.8; Est GFR (Non-African American) 50.7; Potassium 4.1 mmol/L (3.5-5.1)
[2019-12-02 08:19] LABS: Thyroid Stimulating Hormone 5.37 uIu/ml (0.300-4.500)
[2019-12-02 08:31] LABS: T4 Free Thyroxine 1.02 ng/dl (0.8-1.6)
[2019-12-02] MEDS ORDERED: AMLODIPINE BESYLATE 5 MG TAB PO SCH (09:00)
[2019-12-02] MEDS ORDERED: CLOPIDOGREL BISULFATE 75 MG TAB PO SCH (09:00)
[2019-12-02] MEDS ORDERED: ASPIRIN 81 MG ECTAB PO SCH (09:00)
[2019-12-02 11:37] LABS: Estimated Average Glucose 114 mg/dl; Hemoglobin A1C 5.6 % (4.5-5.6)
--- NOTE | 2019-12-02 11:42 | Neurology Consultation ---
Date of Consultation December 02, 2019 Assessment & Plan (1) Acute ischemic multifocal multiple vascular territories stroke: Acute right cerebellar and right frontal lobe infarcts. Patient has very mild residual left upper extremity weakness. The multifocal distribution of his acute strokes would potentially suggest cardioembolism. No history of atrial fibrillation, however. 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 I agree with the addition of Plavix 75 mg/day to this patient's medication regimen. He should continue with dual antiplatelet therapy for 3 weeks, then discontinue daily low-dose aspirin in favor of Plavix monotherapy. I also agree with the addition of atorvastatin 40 mg/day. There is no proven role for surgical treatment of vertebral artery stenosis. Medical management with antiplatelet drugs and statins is typically recommended. Avoid aggressive reductions in patient's blood pressure during this hospitalization, systolic blood pressure goal 140 to 160 mmHg appropriate at this time. Follow-up with results of echocardiogram. Consider 30-day cardiac event monitor. PT/OT Please contact me if I may be of further assistance History of Present Illness Reason for Consultation: Stroke Requesting Physician: John Malone MD Attending Physician: Emmanuel Maya DO History of Present Illness The patient is an 79-year-old male with a chief complaint of left upper extremity weakness that he noted early yesterday morning. The weakness primarily affected his budder. There was some mild associated weakness of the left side of the face as well. The patient indicates that his symptoms seem to have resolved this morning. He denies any associated headache, vision change, or vertigo. Past medical history notable for hypertension for which she is taking 2 antihypertensives. He also takes a daily low-dose aspirin. No history of stroke or TIA. Allergies Allergy/AdvReac Type Severity Reaction Status Date / Time lisinopril AdvReac Unknown cough Verified 12/01/19 12:31 Home Medications Home Medications Medication Instructions Recorded Confirmed Type aspirin 81 mg PO QAM 09/23/18 12/01/19 History esomeprazole magnesium [Nexium] 40 mg PO BIDM 09/23/18 12/01/19 History losartan 50 mg PO BIDM 09/23/18 12/01/19 History amlodipine 5 mg PO QAM 12/01/19 12/01/19 History ibuprofen 200 mg PO Q6H PRN 12/01/19 12/01/19 History Patient History Medical History History of kidney stones (Chronic) HTN (hypertension) (Chronic) Surgical History H/O left knee surgery (Resolved) H/O right knee surgery (Resolved) Social History Communication Ability: Effective 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 Beliefs That Will Affect Care: None Current Living Situation: Spouse Feels Safe at Home: Yes Smoking Status: Never smoker Hx Alcohol Use: No Hx Substance Use: No Review of Systems Constitutional: no fever and no chills Eyes: no blind spots and no diplopia Ear, Nose, Mouth, Throat: no hearing loss Respiratory: no cough and no dyspnea Cardiovascular: no chest pain and no palpitations Gastrointestinal: no nausea and no vomiting Genitourinary: no urinary incontinence Musculoskeletal: no neck pain and no myalgia Integumentary: no rash and no lesions Neurologic: as per Subjective / HPI, + localized weakness and + loss of sensation; no headache(s), no confusion and no memory loss Psychiatric: no depression and no anxiety Hematologic / Lymphatic: no easy bleeding and no easy bruising Exam (Neuro) Physical Exam: This patient has very mild dysmetria of [id number] on the left as well as mild impairment of fine finger movements on the left. No facial droop. No gross hemiparesis. He does not have ataxia. Constitutional: well developed and well nourished; no acute distress Eyes: normal visual elliott by confrontation, PERRL, normal accommodation and EOM intact bilaterally; no fundoscopic abnormality, no nystagmus and no papilledema Cardiovascular: Vessels: normal carotid upstroke; no carotid bruit Neurologic: Oriented to:: Person, Place and Time Memory: Short Term Intact and Remote Intact Attention: Span Intact and Concentration Intact Language: Naming Objects and Repeating Phrases Speech Fluency: negative Dysarthria Speech Aphasia: negative Aphasia Fund of Knowledge: Current Events, Past History and Vocabulary Cranial Nerves: Normal II (Visual elliott full to confrontation, visual acuity normal), III, IV, (Pupils equal round reactive to light and accommodation, eye movements normal), V (Facial sensation intact), VII (There is no facial droop or weakness), VIII (Hearing intact), IX, X (Palate elevates to midline), XI (Shoulder shrug intact) and XII (Tongue protrudes to midline) Motor Strength: Normal Lower Extremities and Normal Upper Extremities; negative Pronator Drift Motor Tone: Normal Lower Extremities and Normal Upper Extremities Muscle Bulk/Involuntary Movements: No Involuntary Movements; negative Muscle Atrophy Sensation: Light Touch Intact, Pain/Temperature Intact, Vibration Intact and Proprioception Intact Coordination: Normal and Finger-Nose Abnormal Laterality: Left; negative Limited Balance, Dysdiadochokinesia and Heel-Benitez Abnormal Deep Tendon Reflexes: Rt Triceps: 2+, Lt Triceps: 2+, Rt Biceps: 2+, Lt Biceps: 2+, Rt Brachioradialis: 2+, Lt Brachioradialis: 2+, Rt Patellar: 2+, Lt Patellar: 2+, Rt Ankle: 2+ and Lt Ankle: 2+ Special Tests: negative Babinski Present Gait: Normal Station and Gait Results & Data ([facility]) Vital Signs (Past 12 Hours) Vital Signs Temp Pulse Pulse Resp BP BP Pulse Ox 12/02/19 07:44 36.6 C 67 18 176/88 H 95 12/02/19 07:33 75 12/02/19 03:10 36.6 C 64 20 112/62 95 Laboratory Results Triglycerides 251, cholesterol 194, LDL 100, VLDL 50, HDL 44 Diagnostic Findings Brain MRI reveals an acute small lacunar infarct within the right cerebellar hemisphere as well as 2 punctate infarcts within the right posterior frontal lobe at the high convexity. CT angiography of the head and neck reveal a 70% stenosis within the proximal right vertebral artery, 40% stenosis within the mild left common carotid artery, and a hypoplastic left vertebral artery. No significant intracranial vascular lesion. I reviewed the images as well as the radiologist's interpretation of these tests. Electrocardiogram reveals sinus bradycardia. Coding Level of Care Code 92890 Initial Inpt Care Lvl 3 Diagnoses Acute ischemic multifocal multiple vascular territories stroke I63.89
[2019-12-02] MEDS ORDERED: STROKE PATIENT DISCHARGE STA (17:50)
--- NOTE | 2019-12-02 19:08 | Billing Data ---
Date of Service December 02, 2019 Coding Level of Care Code 20648 OBS Care - Discharge
--- NOTE | 2019-12-02 20:45 | Discharge Summary ---
Date of Service December 02, 2019 Admission HPI Per Admitting Provider Ronak Wagner is an 79 year old right-hand dominant male with hypertension, no prior CVA or [place] who presents to the ER with left upper extremity weakness. Last known well at 11pm last night when he went to bed. On waking up this morning he noticed generalized weakness in his left arm with lack of control. 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 Possibly also had some left sided facial droop noticed by his daughter and the patient in the mirror which has now resolved. Never had this previously. No change in sensation in this arm. No prior neck pain or surgeries. No change to vision, speech or hearing. Walking around since without any significant issues. He takes an aspirin daily for primary prevention and took all his usual medications this morning. No fever, chills, shortness of breath, cough, loss of taste or smell. No known COVID-19 exposure. Admission Exam Per Admitting Provider Constitutional: WD/WN, vitals as above Eyes: PERRL, conjunctivae normal, anicteric sclerae EOM intact bilaterally ENMT: external ear and nose normal, oropharynx normal Neck: trachea midline, no thyromegaly Respiratory: normal respiratory effort, lungs clear to auscultation Cardiovascular: Rate/Rhythm: regular rate and regular rhythm Heart Sounds: no murmur Extremities: normal capillary refill; no calf tenderness and no pedal edema Gastrointestinal (Abdomen): normal bowel sounds, soft, nontender, no hepatosplenomegaly Musculoskeletal: Head/Neck/Chest: normocephalic and head atraumatic Extremities: extremities normal to inspection and + abnormal strength (generalized LUE weakness 4/5 (see below)); normal muscle tone, no muscle atrophy, no cyanosis and no clubbing Skin: no rashes, warm and dry Neurologic: CN's II-XI intact bilaterally, moves all extremities, + focal motor deficit (Pharmaceutical Assistant strength left 4/5, right 5/5 (see below)) and awake; not confused Speech / Cognition: normal speech, no expressive aphasia, no receptive aphasia and normal cognition Motor/Sensory: + pronator drift (moderate on left side); no tremor and no sensory deficit Psychiatric: A+Ox3, euthymic affect Lymphatic: no cervical or axillary lymphadenopathy Principal Diagnosis Stroke Discharge Exam Constitutional WD/WN, vitals as above Eyes PERRL, conjunctivae normal, anicteric sclerae ENMT external ear and nose normal, oropharynx normal Neck normal visual inspection Respiratory normal respiratory effort, lungs clear to auscultation Cardiovascular RRR, no murmur, no edema Chest (Breasts) normal inspection/palpation of breasts Gastrointestinal (Abdomen) normal bowel sounds, soft, nontender, no hepatosplenomegaly Musculoskeletal no cyanosis or clubbing, extremities motor strength 5/5 Skin no rashes, warm and dry Neurologic normal touch/pain/proprioception, CN's II-XI intact bilaterally and moves all extremities Motor/Sensory: no pronator drift and no asterixis Cranial Nerves: EOM intact bilaterally Coordination: normal [id number] test Discharge Data Allergies Allergy/AdvReac Type Severity Reaction Status Date / Time lisinopril AdvReac Unknown cough Verified 12/01/19 12:31 Consultations 12/01/19 12:05 ED Decision to Admit Stat 12/01/19 15:13 Consult Case Management - Discharge Planning Routine Consult Neurology Routine Ordered Studies 12/01/19 10:04 CT head/brain wo con Stat FINDINGS: No intra or extra-axial mass lesions are visualized. There is no CT evidence of acute cortical infarction. There is no evidence of midline shift. There is no acute hemorrhage. No calvarial fractures are visualized. There are patchy white matter hypodensities likely on a small vessel basis. There is a chronic appearing right cerebellar lacunar infarct which was not visualized the preceding study. There is a chronic appearing tiny lacunar infarct within the periventricular deep white matter, a finding also not visualized on the prior study. There is no evidence of pathologic ventricular dilatation. There is no evidence of acute sinusitis IMPRESSION: No acute intracranial findings 12/01/19 12:49 CT angio head w con Routine CT angio neck with con Routine 12/01/19 15:13 MR brain wo con Routine FINDINGS: There is a 1.4 cm focus of restricted diffusion seen within the right cerebellar hemisphere this is adjacent to an old infarct and is consistent with an acute infarct. There are also 2 punctate foci of restricted diffusion seen within the right posterior frontal lobe at the high convexity best seen on images 19 and 21. These are consistent with 2 additional punctate acute infarcts. Periventricular and subcortical white matter T2 hyperintensity is nonspecific but favors mild microvascular ischemic change. Mild atrophic changes seen within the brain. There is no mass, hematoma, midline shift. The midline structures appear intact. Mild mucosal thickening within the left maxillary sinus. The mastoid air cells are clear. The major vascular flow-voids at the skull base are well-maintained. IMPRESSION: 1. Acute small lacunar infarct within the right cerebellar hemisphere as well as 2 additional punctate acute infarcts within the right posterior frontal lobe at the high convexity. 2. Mild atrophy and microvascular ischemic changes. 3. These findings were called/faxed to the referring physician following dictation. Hospital Course (1) Acute ischemic multifocal multiple vascular territories stroke: 79 yo male w/ pMHx. of HTN presents with stroke like symptoms found to have multifocal distribution of acute strokes concerning for cardioembolic source on MRI brain. Multifocal acute stroke w/ complete resolution of symptoms - Neurology consulted - No history of atrial fibrillation, 30-day cardiac event monitor ordered to further evaluate cardioembolic source - Started on Plavix 75 mg/day. Continue with dual antiplatelet therapy for 3 weeks, then discontinue daily low-dose aspirin in favor of Plavix monotherapy. - patient was switched to Pantoprazole 40 mg BID from prior reflux medication due to rec. by pharmacy for interaction w/ Plavix - started of Atorvastatin 40 mg/day. - There is no proven role for surgical treatment for the vertebral artery stenosis seen on CTA - PT/OT saw patient prior to discharge - speech cleared patient for normal diet Total Time Total Time Spent Total Time Spent (In Minutes): >30 Discharge Plan Discharge Items Patient Disposition: Home - Self-Care Reason For Visit: STROKE-LIKE SYMPTOMS Discharge Diagnosis: stroke Activity: Per Instructions section Non-emergency contact: Primary Care Provider Call non-emergency contact if: your symptoms worsen Follow-up/Referrals: Charlie Ruiz MD [Physician] - 02/10/20 12:45 pm (Please, follow up at [facility] Neurology Office with Dr. Ruiz on SaturdayFebruary 09 at 1:00 pm (arrive 12:45 pm). *The office is located at [facility] in [place]. If you have any questions, call the office at [phone].) Jil Hoang MD [Primary Care Provider] - 12/08/19 2:50 pm (Please, follow up with Dr. Jil Hoang' associate, Jennie Stock PA-C, on SaturdayDecember 07 at 2:50 pm. *If you need to change this appointment, call their office at [phone].) Diet: Regular Addtl Attending Provider Instructions: Stroke You came to the hospital with difficulty using your left hand. You had imaging of your brain that showed that you had a stroke. A stroke is where the blood supply to your brain has been obstructed and leads to the cells in your brain to . Your symptoms resolved completely while you were here. When someone has a stroke we like to determine what may have caused the stroke and then ensure that we decrease your risks of having another stroke in the future. You will need to have a close follow up appointment with your PCP. When you call in the next 2 days to a week. Cardiac event monitor When you go home you will have a monitor for the electrical activity of your heart. You will have this for one month. We are looking for an abnormal rhythm that could have lead to your stroke. If you were to have an arrhythmia this could change what we do to reduce your risks of developing a stroke in the future. Statin To reduce the risk for you getting another stroke in the future we are starting you on medication to decrease you cholesterol and stabilize any plaques in your blood vessels. This medication is called Lipitor or Atorvastatin and is in the drug classification called statins. You will take 40 mg a day. Plavix We are starting you on Plavix or Clopidogrel to decrease the chance of you having another stroke in the future. Plavix works by making your blood less likely to form a clot. Return precautions/red flags If you have a return of symptoms, such as weakness, drooping of your mouth, confusion, new trouble with memory, or any new concerning symptoms call or come in to get evaluated. Pending Studies at Discharge: No Stand-Alone Forms: My [facility], Smoking Cessation Medications and DC Order Prescriptions: New clopidogrel [Plavix] 75 mg tablet 75 mg PO DAILY Qty: 30 RF: 3 atorvastatin [Lipitor] 40 mg tablet 40 mg PO DAILY Qty: 30 RF: 0 pantoprazole 40 mg tablet,delayed release (DR/EC) 40 mg PO BID 30 Days Qty: 60 RF: 0 Continued losartan 50 mg Tablet 50 mg PO BIDM RF: 0 aspirin 81 mg Tablet,Delayed Release (Dr/Ec) 81 mg PO QAM RF: 0 amlodipine 5 mg tablet 5 mg PO QAM RF: 0 Discontinued esomeprazole magnesium [Nexium] 40 mg Capsule,Delayed Release(Dr/Ec) 40 mg PO BIDM RF: 0 ibuprofen 200 mg Tablet 200 mg PO Q6H PRN (Reason: Pain) RF: 0 Discharge Orders: Discharge Order (Routine); Ordered 12/02/19 Ordered By: River Stovall/Other Patient Handouts: Stroke Sx, Stroke Dc, Stroke Prevent Recurrent Nutrition, Atorvastatin tablets, Clopidogrel tablets Admission Data Admit Date/Time: 12/01/19 12:49 Attending Provider: Emmanuel Maya Admit Provider: John Malone Primary Care Provider: Jil Hoang Other Providers: John Malone ; Charlie Ruiz Other Interventions: Discharge Summary Assessment (RN) Last Done: 12/02/19 18:01 DC Date/Time DO NOT enter until pt leaves facility: 12/02/19 19:06 Supervising Physician Co-Signing Physician Notes I personally examined the patient and verified all barros points of history and e xam, discussed case, and agree with decision making with Dr Webster. feeling better hand basically normal would liek to go home extensive discussion on stroke, what a stroke is, most common cause being intracranial atherosclerosis but with mutlifocal areas w him have to worry cryptogenic embolic vitals noted nad heent nc at mmm breathing unlabored no accessory muscles good effort skin no rashes no pallor or icterus no meaningful functional neuro deficits CVA -risks would plead intracranial atherosclerosis, but multifocal areas raise concern on embolic -atorvastatin, plavix -stable for home / close outpt f/u -event monitor to screen for PAF otherwise as above and as per neurology Resident Activity Tracking Resident Involvement: Resident Care Provided Care Provided: Adult Hospital Medicine
--- NOTE | 2019-12-02 21:20 | Pharmacy Report ---
Pharmacist Stroke Counseling - Date of Service December 02, 2019 - Scope: Pharmacy has been consulted to provide medication discharge counseling for this patient admitted with [ischemic stroke] [hemorrhagic stroke] [transient ischemic attack] as per the Pharmacist Discharge Counseling for Stroke Patients Efe tony - Medications on Discharge: Home Medications Medication Instructions Recorded Confirmed aspirin 81 mg PO QAM 09/23/18 12/01/19 losartan 50 mg PO BIDM 09/23/18 12/01/19 amlodipine 5 mg PO QAM 12/01/19 12/01/19 New Rx's Medication Instructions Recorded atorvastatin [Lipitor] 40 mg PO DAILY #30 tab 12/02/19 clopidogrel [Plavix] 75 mg PO DAILY #30 tab 12/02/19 pantoprazole 40 mg PO BID 30 Days #60 tab 12/02/19 - Action: The above medications, specifically ones for stroke treatment/prophylaxis, have been reviewed in detail with the patient prior to discharge. This includes indication, common adverse reactions, drug interactions, and medication administration. Medication counseling has been employed using the teach-back method to ensure understanding. - Outcome: The patient has demonstrated understanding of the medications. Additional comments: Spoke to patient via phone call before his discharge today. I discussed his ASA which he was already taking, then discussed the new meds- Clopidogrel and Atorvastatin. Explained that he is supposed to take the ASA and Plavix together for 3 weeks, then stop the ASA. Explained side effects to watch out for due to being on two blood thinners and contact his PCP if any s/sxs of bleeding/bruising. Addressed Atorvastatin side effects, precautions as well. Spoke to Dr. Holman about changing the Nexium to Protonix due to drug interaction between the Plavix and Nexium. He okayed the change. I mentioned this to the patient as well. Thank you for allowing pharmacy to be involved in the care of this patient. Please call [phone] with any additional questions
--- NOTE | 2019-12-03 10:46 | XCELERA ---
[id number]
== END 2019-12-02 19:06 | disposition home or self-care (01) ==
LOC: ED 09:21 → 2S 09:21 → SUATTDRO 12:49 → 2S 14:20

== ENCOUNTER 2020-03-24 22:59 | Inpatient (IN) ==
[2020-03-24] MEDS ORDERED: SODIUM CHLORIDE 0.9% 250 ML IV PRN (23:24)
[2020-03-24] MEDS ORDERED: SODIUM CHLORIDE 0.9% 1000ML 1,000 ML IV SCH (23:30)
[2020-03-24 23:33] LABS: Basophils # (auto) 0.03 K/uL (0-0.2); Basophils % (auto) 0.4 %; Eosinophils # (auto) 0.19 K/uL (0-0.5); Eosinophils % (auto) 2.5 %; Hematocrit (blood only) 42.2 % (42-52); Hemoglobin 14.1 g/dL (14.0-18.0); Immature Granulocytes # (auto) 0.04 K/uL (0.00-0.02); Immature Granulocytes % (auto) 0.5 %; Lymphocytes # (auto) 2.23 K/uL (1.2-3.4); Lymphocytes % (auto) 29.5 %; Mean Corpuscular Hemoglobin 29.9 pg (25-34); Mean Corpuscular Hgb Conc 33.4 g/dL (32-36); Mean Corpuscular Volume 89.6 fL (80-100); Mean Platelet Volume 10.1 fL (7.4-10.4); Monocytes # (auto) 0.66 K/uL (0.11-0.59); Monocytes % (auto) 8.7 %; Neutrophils # (auto) 4.42 K/uL (1.4-6.5); Neutrophils % (auto) 58.4 %; Platelet Count 230 K/uL (130-400); RDW Coefficient of Variation 13.6 % (11.5-14.5); RDW Standard Deviation 44.8 fL (36.4-46.3); Red Blood Count 4.71 M/uL (4.7-6.1); White Blood Count 7.57 K/uL (4.8-10.8)
[2020-03-24 23:40] LABS: iSTAT Creatinine 1.2 mg/dl (0.6-1.3); iSTAT Hemoglobin 13.6 g/dl (14.0-18.0); iSTAT Ionized Calcium 1.28 mmol/l (1.12-1.32); iSTAT Potassium 3.9 mmol/L (3.3-5.0)
[2020-03-24 23:46] LABS: Partial Thromboplastin Ratio 0.9; Partial Thromboplastin Time 24.9 Seconds (21.0-31.0); Prothrombin Time 10.3 Seconds (9.0-12.0)
[2020-03-24 23:51] LABS: BUN Creatinine Ratio 14.8 (10-20); Blood Urea Nitrogen 20 mg/dl (7-18); Calcium 10.6 mg/dl (8.5-10.1); Carbon Dioxide 26 mmol/L (21-32); Chloride 108 mmol/L (98-107); Est GFR (African American) 55.7; Glucose 127 mg/dl (70-99); Sodium 141 mmol/L (136-145)
[2020-03-24 23:55] LABS: Alanine Aminotransferase 34 U/L (12-78); Albumin Globulin Ratio 1.1 (0.9-2); Alkaline Phosphatase 93 U/L (45-117); Bilirubin,Total 0.6 mg/dl (0.2-1); Globulin 3.6 gm/dl (2.5-4.0); Total Protein 7.6 gm/dl (6.4-8.2); Troponin I < 0.015 ng/ml (0-0.045)
[2020-03-25] MEDS ORDERED: IOVERSOL 100ml IV ONE (00:05)
--- NOTE | 2020-03-25 00:13 | Emergency Department Note ---
History of Present Illness General Chief complaint: Vomiting Stated complaint: VOMITING BLOOD Source: patient, EMS and RN notes reviewed Mode of arrival: ambulatory Limitations: no limitations History of Present Illness Provider complaint: Spitting up blood This patient is an 79-year-old male who presents the emergency department with complaints of spitting up blood. He states he was watching TV eating cheese puf fs. He got up to get a drink of water which he tolerated well. He then went in to take a shower and coughed. He then began to spit up blood in the sink. He does not believe he was vomiting. He thinks it is "in the throat." Patient denies any recent trauma to the throat. He has had no recent surgeries. He denies any knowledge of stricture or ulcerations. Patient states he had an EGD several years ago and was placed on pantoprazole twice daily. Patient denies any recent fevers, weight loss, shortness of breath, abdominal pain or diarrhea. He denies any blood in the stools. Home Medications Home Medications Medication Instructions Recorded Confirmed Type losartan 50 mg PO BIDM 09/23/18 03/25/20 History amlodipine 5 mg PO PM 12/01/19 03/25/20 History bseoortb-bxr-nyolj acid 0.4 1 tab PO QAM 02/10/20 03/25/20 History mg-lycopene 300 mcg-lutein 250 mcg tablet pantoprazole 20 mg tablet,delayed 20 mg PO BID tab 02/10/20 03/25/20 History release atorvastatin [Lipitor] 40 mg PO PM 03/23/20 03/25/20 History clopidogrel [Plavix] 75 mg PO PM 03/23/20 03/25/20 History Allergies Allergy/AdvReac Type Severity Reaction Status Date / Time lisinopril AdvReac Mild cough Verified 03/25/20 00:06 Past Med/Surg History Medical History GERD (gastroesophageal reflux disease) History of kidney stones passed on own HTN (hypertension) Hx of diverticulitis of colon Hyperlipidemia Rupture of colon IN 2005> 12 IN COLON REMOVED Stroke NOVEMBER 2019 > [facility] > NO RESIDUAL EFFECTS> PLAVIX > SAW DR. SEGOVIA> NO FURTHER FOLLOW UP Surgical History H/O left knee surgery arthroscopic H/O right knee surgery arthroscopic History of colonoscopy History of colostomy REVERSED 2006 History of cystoscopy History of esophagogastroduodenoscopy (EGD) Pilonidal cyst WITH REPAIR Family History Mother Colorectal cancer Father Respiratory care problem Social History Smoking Status: Never smoker Second Hand Exposure: No; Hx Alcohol Use: No Hx Substance Use: No Preferred Language: Georgian Communication Ability: Effective Tree Inspector Required: No Beliefs That Will Affect Care: None marital status: Current Living Situation: Spouse Feels Safe at Home: Yes Assistive Devices: Glasses and Hearing Aid - Bilateral Review of Systems See HPI for pertinent positives & negatives. and A total of 10 systems reviewed and were otherwise negative Physical Exam Vital Signs Vital Signs - 24 hr 03/24/20 23:07 03/24/20 23:20 03/24/20 23:56 Temperature 36.6 C Temperature Source Oral Pulse Rate 87 Pulse Rate [Apical] 72 Respiratory Rate 16 20 Respiratory Effort / Characteristics Respiratory Depth Normal Blood Pressure 172/83 H Blood Pressure [Left Arm] 143/77 H Blood Pressure Mean 112 Blood Pressure Mean [Left Arm] 99 Pulse Oximetry 93 89 L 97 Oxygen Delivery Method Room Air Room Air Nasal Cannula Oxygen Flow Rate 2 Sepsis Recent Fever Within 48 Hours No Sepsis New/Unexplained Change in Mental Status No Sepsis Action Taken by Nursing No Action Required 03/25/20 00:11 03/25/20 00:15 03/25/20 00:45 Temperature Temperature Source Pulse Rate Pulse Rate [Apical] 69 63 60 Respiratory Rate 18 22 20 Respiratory Effort / Characteristics Respiratory Depth Blood Pressure Blood Pressure [Left Arm] 162/90 H 136/72 160/85 H Blood Pressure Mean Blood Pressure Mean [Left Arm] 114 93 110 Pulse Oximetry 98 96 96 Oxygen Delivery Method Nasal Cannula Nasal Cannula Nasal Cannula Oxygen Flow Rate 2 2 2 Sepsis Recent Fever Within 48 Hours Sepsis New/Unexplained Change in Mental Status Sepsis Action Taken by Nursing 03/25/20 01:07 Temperature Temperature Source Pulse Rate Pulse Rate [Apical] 66 Respiratory Rate 18 Respiratory Effort / Characteristics Non-Labored Spontaneous Respiratory Depth Blood Pressure Blood Pressure [Left Arm] Blood Pressure Mean Blood Pressure Mean [Left Arm] Pulse Oximetry 99 Oxygen Delivery Method Nasal Cannula Oxygen Flow Rate 2 Sepsis Recent Fever Within 48 Hours Sepsis New/Unexplained Change in Mental Status Sepsis Action Taken by Nursing Vital signs reviewed. General: Well-appearing 79-year-old male, in no significant distress. HEENT: No scleral icterus, PERRLA, neck supple. Spitting up approximately 200 cc of bright red blood with saliva. No evidence of emesis. Cardiovascular: Regular rate and rhythm, no extra sounds. Pulmonary: Clear to auscultation bilaterally, normal work of breathing. Abdomen: Soft, nontender, nondistended, positive bowel sounds. Musculoskeletal: Atraumatic, no peripheral edema. : Guaiac negative brown stool. Normal rectal mucosa. Neurologic: Patient awake alert and oriented x 3 Skin: Warm, dry, no rash Course Administered Medications Discontinued Medications Fentanyl Citrate (Fentanyl Citrate 100 Mcg/2 Ml Vial) 200 mcg IV NOW STA Stop: 03/25/20 16:59 Last Admin: 03/25/20 19:51 Dose: 200 mcg Documented by: [id number] Fentanyl Citrate (Fentanyl Citrate 100 Mcg/2 Ml Vial) Confirm Administered Dose 200 mcg .ROUTE .STK-MED ONE Stop: 03/25/20 17:12 Last Admin: 03/25/20 19:50 Dose: Not Given Documented by: [id number] Fentanyl Citrate (Fentanyl Citrate 100 Mcg/2 Ml Vial) 50 mcg IV NOW STA Stop: 03/25/20 19:39 Last Admin: 03/25/20 19:58 Dose: 50 mcg Documented by: [id number] Fentanyl Citrate (Fentanyl Citrate 100 Mcg/2 Ml Vial) Confirm Administered Dose 100 mcg .ROUTE .STK-MED ONE Stop: 03/25/20 19:42 Last Admin: 03/25/20 19:57 Dose: Not Given Documented by: [id number] Sodium Chloride (Nss 1000ml) 1,000 mls @ 100 mls/hr IV .Q10H [facility] Stop: 03/25/20 09:29 Last Infusion: 03/25/20 08:28 Dose: 0 mls/hr Documented by: [id number] Infusion: 03/25/20 08:22 Dose: 0 mls/hr Documented by: [id number] Infusion: 03/25/20 03:30 Dose: 0 mls/hr Documented by: [id number] Admin: 03/24/20 23:56 Dose: 100 mls/hr Documented by: [id number] Desmopressin Acetate 25 mcg/ (Sodium Chloride) 56.25 mls @ 100 mls/hr IV NOW STA Stop: 03/25/20 01:06 Last Infusion: 03/25/20 01:30 Dose: 0 mls/hr Documented by: [id number] Admin: 03/25/20 00:56 Dose: 100 mls/hr Documented by: [id number] Potassium Chloride/Sodium Chloride (Normal Saline W/20 Meq Kcl) 20 meq in 1,000 mls @ 80 mls/hr IV .[id number] [facility] Stop: 04/24/20 02:51 Last Infusion: 03/25/20 11:44 Dose: 0 mls/hr Documented by: [id number] Admin: 03/25/20 03:20 Dose: 80 mls/hr Documented by: [id number] Pantoprazole Sodium 40 mg/ (Syringe) 10 mls @ 5 mls/min IV DAILY@1100 [facility] Stop: 04/24/20 10:59 Last Admin: 03/25/20 10:40 Dose: 5 mls/min Documented by: [id number] Piperacillin Sod/Tazobactam (Sod 3.375 gm/ Dextrose) 115 mls @ 230 mls/hr IV TODAY@0300 ONE Stop: 03/25/20 03:29 Last Infusion: 03/25/20 03:50 Dose: 0 mls/hr Documented by: [id number] Admin: 03/25/20 03:20 Dose: 230 mls/hr Documented by: [id number] Vancomycin HCl 2,000 mg/ (Sodium Chloride) 540 mls @ 200 mls/hr IV ONE ONE Stop: 03/25/20 05:56 Last Infusion: 03/25/20 06:39 Dose: 0 mls/hr Documented by: [id number] Admin: 03/25/20 03:21 Dose: 200 mls/hr Documented by: [id number] Piperacillin Sod/Tazobactam (Sod 3.375 gm/ Dextrose) 115 mls @ 28.75 mls/hr IV Q8H [facility]; Protocol Stop: 04/01/20 10:30 Last Infusion: 03/25/20 11:45 Dose: 0 mls/hr Documented by: [id number] Admin: 03/25/20 08:42 Dose: 28.8 mls/hr Documented by: [id number] Ceftriaxone Sodium 2,000 mg/ (Dextrose) 70 mls @ 140 mls/hr IV Q24H [facility] Stop: 04/01/20 10:59 Last Infusion: 03/25/20 13:39 Dose: 0 mls/hr Documented by: [id number] Admin: 03/25/20 11:43 Dose: 140 mls/hr Documented by: [id number] Levofloxacin/Dextrose (Levaquin/D5w) 750 mg in 150 mls @ 100 mls/hr IV Q24H [facility] Stop: 04/01/20 11:59 Last Infusion: 03/25/20 16:21 Dose: 0 mls/hr Documented by: [id number] Admin: 03/25/20 14:47 Dose: 100 mls/hr Documented by: [id number] Parenteral Electrolytes (Normosol-R) 1,000 mls @ 80 mls/hr IV .[id number] [facility] Stop: 04/24/20 10:44 Last Admin: 03/25/20 10:40 Dose: 80 mls/hr Documented by: [id number] Propofol (Diprivan) 1,000 mg in 100 mls @ 18.606 mls/hr IV .Q5H23M [facility]; Protocol Stop: 03/28/20 17:59 Last Titration: 03/25/20 19:58 Dose: 35 mcg/kg/min, 18.6 mls/hr Documented by: [id number] Titration: 03/25/20 18:45 Dose: 15 mcg/kg/min, 8 mls/hr Documented by: [id number] Titration: 03/25/20 18:30 Dose: 10 mcg/kg/min, 5.3 mls/hr Documented by: [id number] Admin: 03/25/20 18:00 Dose: 5 mcg/kg/min, 2.7 mls/hr Documented by: [id number] Cosigned by: [id number] Insulin Aspart (Insulin Aspart 100 Units/Ml 3 Ml Pen) 0 units SC Q6 [facility] Stop: 04/24/20 11:59 Last Admin: 03/25/20 19:52 Dose: Not Given Documented by: [id number] Cosigned by: [id number] Admin: 03/25/20 14:47 Dose: Not Given Documented by: [id number] Cosigned by: [id number] Ioversol (Ioversol 100ml) 100 ml IV ONCE ONE Stop: 03/25/20 00:06 Last Admin: 03/25/20 00:06 Dose: 93 ml Documented by: [id number] Ioversol (Optiray 320 125ml) 120 ml IV ONCE ONE Stop: 03/25/20 18:51 Last Admin: 03/25/20 18:51 Dose: 120 ml Documented by: [id number] Lidocaine HCl (Lidocaine 4% Inh Soln 4 Ml Btl) 2 ml CAS ONE ONE Stop: 03/25/20 17:16 Last Admin: 03/25/20 19:51 Dose: 2 ml Documented by: [id number] Miscellaneous (Rapid Sequence Induction Bag) Confirm Administered Dose 1 ea .R OUTE .STK-MED ONE Stop: 03/25/20 17:46 Last Admin: 03/25/20 19:51 Dose: 1 ea Documented by: [id number] Miscellaneous (Stat Iv Infusion Titration Per Protocol) 1 ea N/A NOW STA Stop: 03/25/20 17:51 Last Admin: 03/25/20 19:51 Dose: 1 ea Documented by: [id number] Propofol (Propofol Iv Emulsion 10 Mg/Ml 100 Ml Vial) Confirm Administered Dose 1,000 mg IV .STK-MED ONE Stop: 03/25/20 17:51 Last Admin: 03/25/20 19:52 Dose: Not Given Documented by: [id number] Tranexamic Acid (Txa 10% Non-Iv Routes 100 Mg/Ml Vial) 250 mg NEB ONE ONE Stop: 03/25/20 00:34 Last Admin: 03/25/20 01:26 Dose: Not Given Documented by: [id number] Tranexamic Acid (Txa 10% Non-Iv Routes 100 Mg/Ml Vial) 250 mg NEB ONE ONE Stop: 03/25/20 01:01 Last Admin: 03/25/20 01:26 Dose: 250 mg Documented by: [id number] Tranexamic Acid (Tranexamic Acid 100 Mg/Ml 10 Ml Vial) 100 mg INH ONE ONE Stop: 03/25/20 18:01 Last Admin: 03/25/20 19:51 Dose: 100 mg Documented by: [id number] Medical Decision Making Differential Diagnosis The differential diagnosis of this patient's presentation includes oropharyngeal bleeding, sinus bleeding, upper GI bleeding, ulceration, stricture, Risa- Velez tear, hemoptysis, pulmonary mass, pneumonia Medical Records Attestation: I reviewed the patient's medical records. Home Medications Current Medication List: was personally reviewed by me Laboratory Data Attestation: I reviewed the patient's lab results. Result diagrams: 03/25/20 19:08 03/25/20 03:26 Lab Results 03/24/20 03/24/20 03/24/20 Range/Units 23:24 23:24 23:24 WBC 7.57 (4.8-10.8) K/uL RBC 4.71 (4.7-6.1) M/uL Hgb 14.1 (14.0-18.0) g/dL POC Hgb (14.0-18.0) g/dl Hct 42.2 (42-52) % POC Hct (42-52) % MCV 89.6 (80-100) fL MCH 29.9 (25-34) pg MCHC 33.4 (32-36) g/dL RDW Std Deviation 44.8 (36.4-46.3) fL RDW Coeff of Luca 13.6 (11.5-14.5) % Plt Count 230 (130-400) K/uL MPV 10.1 (7.4-10.4) fL Immature Gran % (Auto) 0.5 % Neut % (Auto) 58.4 % Lymph % (Auto) 29.5 % [place] % (Auto) 8.7 % Eos % (Auto) 2.5 % Baso % (Auto) 0.4 % Neut # (Auto) 4.42 (1.4-6.5) K/uL Lymph # (Auto) 2.23 (1.2-3.4) K/uL [place] # (Auto) 0.66 H (0.11-0.59) K/uL Eos # (Auto) 0.19 (0-0.5) K/uL Baso # (Auto) 0.03 (0-0.2) K/uL Immature Gran # (Auto) 0.04 H (0.00-0.02) K/uL PT 10.3 (9.0-12.0) Seconds INR 1.0 (0.9-1.1) APTT 24.9 (21.0-31.0) Seconds PTT Ratio 0.9 POC Sodium (135-144) mmol/L Sodium (136-145) mmol/L POC Potassium (3.3-5.0) mmol/L Potassium (3.5-5.1) mmol/L POC Chloride (101-112) mmol/L Chloride (98-107) mmol/L Carbon Dioxide (21-32) mmol/L POC Total CO2 (24-31) mmol/L Anion Gap (3-11) POC Anion Gap (16-25) mmol/L POC BUN (7-18) mg/dl BUN (7-18) mg/dl Creatinine (0.6-1.4) mg/dl POC Creatinine (0.6-1.3) mg/dl Est Cr Clr Drug Dosing Est GFR ( Amer) Est GFR (Non-Af Amer) BUN/Creatinine Ratio (10-20) Glucose (70-99) mg/dl POC Glucose (other) (70-99) mg/dl Calcium (8.5-10.1) mg/dl POC Ioniz Calcium Susan (1.12-1.32) mmol/l Total Bilirubin (0.2-1) mg/dl AST (15-37) U/L ALT (12-78) U/L Alkaline Phosphatase (45-117) U/L Troponin I (0-0.045) ng/ml Total Protein (6.4-8.2) gm/dl Albumin (3.4-5.0) gm/dl Globulin (2.5-4.0) gm/dl Albumin/Globulin Ratio (0.9-2) Blood Type O Positive Antibody Screen NEGATIVE Crossmatch See Detail 03/24/20 03/24/20 03/25/20 Range/Units 23:24 23:28 00:07 WBC (4.8-10.8) K/uL RBC (4.7-6.1) M/uL Hgb (14.0-18.0) g/dL POC Hgb 13.6 L (14.0-18.0) g/dl Hct (42-52) % POC Hct 40 L (42-52) % MCV (80-100) fL MCH (25-34) pg MCHC (32-36) g/dL RDW Std Deviation (36.4-46.3) fL RDW Coeff of Luca (11.5-14.5) % Plt Count (130-400) K/uL MPV (7.4-10.4) fL Immature Gran % (Auto) % Neut % (Auto) % Lymph % (Auto) % [place] % (Auto) % Eos % (Auto) % Baso % (Auto) % Neut # (Auto) (1.4-6.5) K/uL Lymph # (Auto) (1.2-3.4) K/uL [place] # (Auto) (0.11-0.59) K/uL Eos # (Auto) (0-0.5) K/uL Baso # (Auto) (0-0.2) K/uL Immature Gran # (Auto) (0.00-0.02) K/uL PT (9.0-12.0) Seconds INR (0.9-1.1) APTT (21.0-31.0) Seconds PTT Ratio POC Sodium 141 (135-144) mmol/L Sodium 141 (136-145) mmol/L POC Potassium 3.9 (3.3-5.0) mmol/L Potassium 4.0 (3.5-5.1) mmol/L POC Chloride 105 (101-112) mmol/L Chloride 108 H (98-107) mmol/L Carbon Dioxide 26 (21-32) mmol/L POC Total CO2 25 (24-31) mmol/L Anion Gap 6.0 (3-11) POC Anion Gap 17.0 (16-25) mmol/L POC BUN 22 H (7-18) mg/dl BUN 20 H (7-18) mg/dl Creatinine 1.37 (0.6-1.4) mg/dl POC Creatinine 1.2 (0.6-1.3) mg/dl Est Cr Clr Drug Dosing Not Reportable Est GFR ( Amer) 55.7 Est GFR (Non-Af Amer) 48.0 BUN/Creatinine Ratio 14.8 (10-20) Glucose 127 H (70-99) mg/dl POC Glucose (other) 127 H (70-99) mg/dl Calcium 10.6 H (8.5-10.1) mg/dl POC Ioniz Calcium Susan 1.28 (1.12-1.32) mmol/l Total Bilirubin 0.6 (0.2-1) mg/dl AST 17 (15-37) U/L ALT 34 (12-78) U/L Alkaline Phosphatase 93 (45-117) U/L Troponin I < 0.015 (0-0.045) ng/ml Total Protein 7.6 (6.4-8.2) gm/dl Albumin 4.0 (3.4-5.0) gm/dl Globulin 3.6 (2.5-4.0) gm/dl Albumin/Globulin Ratio 1.1 (0.9-2) Blood Type Antibody Screen Crossmatch Imaging Data Attestation: I personally reviewed and interpreted this imaging study as follows: My Impression: CT CHEST With Contrast: Groundglass and peribronchovascular opacities in the right middle and lower lobes suggestive of nonspecific infection. Aspiration also on the differential. No central pulmonary embolism. 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 Severe coronary artery calcifications. Chronic fracture deformities in the ribs bilaterally. Radiologist: Meño Balderas MD Study ready at 00:13 and initial results transmitted at 00:34 CT NECK: Cannot evaluate for active bleeding due to lack of intravenous contrast. No evidence of mass. Small amount of layering material within the thoracic trachea, could represent blood given history. Glottis is closed during exam and there is motion artifact, which limits evaluation. Airway is otherwise patent. Normal epiglottis. Carotid and vertebral artery calcifications, as better evaluated on prior CTA 12/01/19. Tonsilloliths. Multilevel degenerative changes of cervical spine Radiologist: Ivan Khan MD Study ready at 01:50 and initial results transmitted at 02:37 ECG Data Attestation: I personally reviewed and interpreted this ECG as follows: Indication: + other (Hemoptysis) Rate (beats per minute): 78 Rhythm: + normal sinus ECG Intervals/blocks: + Prolonged QT (474) ECG [place]: + Normal ECG ST segments: + Nonspecific ST abnormalities and + repolarization abnormalities ECG Findings: + Other (Nonspecific T wave abnormality, nonspecific intraventricular block); no PACs and no PVCs Blood Pressure Blood Pressure Findings: Elevated blood pressure Blood Pressure Disposition: further management by hospitalist REESE Reyes This patient was evaluated and appeared to be in no distress but was actively spitting up bright red blood. Patient did not appear to be vomiting. IV access was obtained and laboratory work was drawn. An order for cardiac monitoring was placed and the patient is noted to be in a sinus rhythm at 78 bpm. EKG confirms no acute ischemic change. Chest CT was performed and reveals possible aspiration with groundglass opacities in the right middle and lower lobes. CT scan of the neck was performed reveals a patent airway which reveals a small amount of layering material in the thoracic trachea, likely blood. The patient was given TXA nebulization of 250 mg. At this time he appears to be stable and was discussed with the hospitalist service. The ICU was consulted. Patient will be evaluated for further management. He and his are aware of the plan and agree. Impression & Plan Hemoptysis Discharge Plan Visit Data Chief Complaint: Vomiting Stated Complaint: VOMITING BLOOD ED Provider: Elise Crowder Discharge Problem: Hemoptysis Patient Disposition: Admitted As Inpatient Discharge Instructions Interventions: ED Discharge Assessment Last Done: 03/25/20 02:15
[2020-03-25] MEDS ORDERED: DESMOPRESSIN ACETATE 25 MCG in SODIUM CHLORIDE 0.9% 50 ML IV STA (00:33)
[2020-03-25] MEDS ORDERED: TXA 10% Non-IV Routes 100 MG/ML VIAL NEB ONE ×3 (00:33→01:00)
--- NOTE | 2020-03-25 02:45 | Critical Care Consultation ---
Date of Consultation March 25, 2020 Assessment & Plan (1) Admitted to intensive care unit: Reason Critically Ill: 79-year-old male with concerns for hemoptysis and need for close monitoring for possible need for airway intervention. NEURO - * CAM ICU: NEGATIVE * History of CVA: * Hold Plavix pending ongoing evaluation. CARDIAC/VASCULAR - * Hypertension, hyperlipidemia * Continue home medications as tolerated. * Monitor on telemetry. RESPIRATORY - * Hemoptysis: * Concerns for upper airway bleeding. Patient noted to have moderate bright red blood with upper airway clearing. * Exam not consistent with bleeding from the naris. * Rectal exam Hemoccult negative. * CT chest demonstrates RIGHT lower lobe infiltrate concerning for degree of aspiration. * Currently covered with antibiotics. * Patient received nebulized TXA in the emergency department. Repeat as needed. * Consider early airway intervention for further evaluation of sources of bleeding if needed. * Hold Plavix. GI/NUTRITION - * GERD * Prophylaxis: Protonix RENAL/LYTES - * No significant electrolyte derangements. - * No concerns at this time. ENDO - * No history of diabetes or thyroid disease. * BSGs per unit protocol. ISS --> gtt per unit policy. HEME - * Stable H&H. * Trend H&H in the setting of bleeding. ID - * Aspiration pneumonia. * Treated with Zosyn. LINES/IV ACCESS - * PIVs x2 DVT PROPHYLAXIS - * Hold on anticoagulation in the setting of possible hemoptysis. * SCDs Thank you for allowing us to participate in the care of this patient. Please refer to my attending physician's documentation for any further recommendations. (2) Cough with hemoptysis: (3) Hyperlipidemia: (4) GERD (gastroesophageal reflux disease): (5) Stroke-like symptoms: (6) Acute ischemic multifocal multiple vascular territories stroke: Supervising Physician Co-Signing Physician Notes I have personally evaluated and examined this patient. I agree with assessment and plan of Manisha May PA-C. Please see follow-up addendum for my additional work-up and evaluation. History of Present Illness Attending Physician: Giles Thomason MD History of Present Illness Patient is an 79-year-old male with significant past medical history of hypertension, hyperlipidemia, and recent CVA in November of this past year who presented to the emergency department today with concerns for hemoptysis. The patient reports that earlier last evening while watching a baseball game, he noticed blood when he would clear his throat. This was bright red in appearance. He reports that he did not swallow any of the blood. He denies that he vomited. He reports that he has not been coughing, but not clearing any sputum or blood. Upon arrival in the emergency department, the patient was noted to have bright red blood when clearing his throat. Patient's H&H was noted to be stable. He did have improvement with slowing of blood throughout ER stay. Upon evaluation in the emergency department, the patient is awake, alert, and oriented. He reports that the amount of blood has slowed down. Despite the bleeding, he denies any headaches, dizziness, lightheadedness, chest pain, palpitations, shortness of breath, nausea, or vomiting. Rectal exam was performed by emergency department physician and found to be negative. Patient reports no prior history of upper GI bleeding. He reports no history of hemoptysis. He does take Plavix daily secondary to recent CVA. Otherwise, the patient takes no daily anticoagulants. Allergies Allergy/AdvReac Type Severity Reaction Status Date / Time lisinopril AdvReac Mild cough Verified 03/25/20 00:06 Home Medications Home Medications Medication Instructions Recorded Confirmed Type losartan 50 mg PO BIDM 09/23/18 03/25/20 History amlodipine 5 mg PO PM 12/01/19 03/25/20 History [id number]-[id number]-[id number] acid 0.4 1 tab PO QAM 02/10/20 03/25/20 History mg-lycopene 300 mcg-lutein 250 mcg tablet pantoprazole 20 mg tablet,delayed 20 mg PO BID tab 02/10/20 03/25/20 History release atorvastatin [Lipitor] 40 mg PO PM 03/23/20 03/25/20 History clopidogrel [Plavix] 75 mg PO PM 03/23/20 03/25/20 History Patient History Medical History GERD (gastroesophageal reflux disease) History of kidney stones passed on own HTN (hypertension) Hx of diverticulitis of colon Hyperlipidemia Rupture of colon IN 2005> 12 IN COLON REMOVED Stroke NOVEMBER 2019 > [facility] > NO RESIDUAL EFFECTS> PLAVIX > SAW DR. SEGOVIA> NO FURTHER FOLLOW UP Surgical History H/O left knee surgery arthroscopic H/O right knee surgery arthroscopic History of colonoscopy History of colostomy REVERSED 2006 History of cystoscopy History of esophagogastroduodenoscopy (EGD) Pilonidal cyst WITH REPAIR Family History Mother Colorectal cancer Father Respiratory care problem Social History Smoking Status: Never smoker Second Hand Exposure: No; Hx Alcohol Use: No Hx Substance Use: No Preferred Language: Croatian Communication Ability: Effective Informatics Nurse Specialist Required: No Beliefs That Will Affect Care: None Current Living Situation: Spouse Other Information That Helps Us Care for You: No Feels Safe at Home: Yes Safety Concerns: Feels Safe At This Time Assistive Devices: Glasses and Hearing Aid - Bilateral Review of Systems Review of Systems: A complete 10 point review of systems was reviewed with the patient with pertinent positives and negatives as per history of present illne ss. All else were negative. Physical Exam Physical Exam: VITAL SIGNS - Vital signs and nursing notes were reviewed. GENERAL - 79-year-old male appearing his stated age who is in no acute distress. Communicates well with provider and answers questions appropriately. SKIN - Without rashes. HEAD - NC/AT. EYES - PERRL with EOMI bilaterally. Sclera anicteric. Palpebral conjunctiva pink and moist with no injection noted. EARS - No deformities of external structures noted on gross examination bilaterally. NOSE - Midline and without cyanosis. No epistaxis or purulent drainage noted. Septum midline without deviation or septal hematoma noted. MOUTH/OROPHARYNX - Without perioral cyanosis. Buccal mucosa pink and moist and without leukoplakia. Tongue midline with equal elevation of palate bilaterally. No tonsillar hypertrophy, erythema, or exudates noted. Good dentition noted. NECK - Neck with FROM. Supple to palpation. No lymphadenopathy noted. No nuchal rigidity. LUNGS - Chest wall symmetric without accessory muscle use, intercostals retractions, or central cyanosis. Normal vesicular breath sounds CTA B/L. No wheezes, rales, or rhonchi appreciated. CARDIAC - RRR with S1/S2. No murmur, rubs, or gallops appreciated. ABDOMEN - Abdominal contour flat without pulsations or visible masses. BS normoactive all four quadrants. No tenderness, palpable masses, hepatosplenomegaly, or ascites noted. EXTREMITIES - No clubbing or peripheral cyanosis. No pretibial edema present. +3/5 radial and dorsalis pedis pulses palpated throughout. +5/5 strength noted in UE/LE bilaterally. NEUROLOGIC - Cranial nerves II through XII grossly intact. Sensory intact to light touch throughout. PSYCH - A&Ox3 and cooperates fully with examiner. Pt is very pleasant and interacts well with examiner. Results & Data Results & Data ([facility]) Vital Signs (Past 12 Hours) Vital Signs Temp Pulse Pulse Resp BP BP Pulse Ox 03/25/20 02:00 69 18 134/85 96 03/25/20 01:44 73 18 142/86 H 98 03/25/20 01:15 69 18 149/89 H 97 03/25/20 01:07 66 18 99 03/25/20 00:45 60 20 160/85 H 96 03/25/20 00:15 63 22 136/72 96 03/25/20 00:11 69 18 162/90 H 98 03/24/20 23:56 72 20 143/77 H 97 03/24/20 23:20 89 L 03/24/20 23:07 36.6 C 87 16 172/83 H 93 Coding Level of Care Code 66160 Inpt Consult Level 5 Diagnoses Admitted to intensive care unit Z78.9 Cough with hemoptysis R04.2 Hyperlipidemia E78.5 GERD (gastroesophageal reflux disease) K21.9 Stroke-like symptoms R29.90 Acute ischemic multifocal multiple vascular territories stroke I63.89 Time Spent (min) 35
[2020-03-25] MEDS ORDERED: NSS + 20MEQ KCL 20 MEQ/1,000 ML BAG IV SCH (02:52)
[2020-03-25] MEDS ORDERED: PIPERACILL/TAZOBAC CONSULT ACTIVE PRN (02:52)
[2020-03-25] MEDS ORDERED: ICU PROTOCOL FOR HYPERGLYCEMIA PRN (02:52)
[2020-03-25] MEDS ORDERED: VANCOMYCIN CONSULT ACTIVE PRN (02:52)
[2020-03-25] MEDS ORDERED: ALBUT/IPRATROP 3MG/0.5MG NEB 3 ML VIAL INH PRN (02:52)
[2020-03-25] MEDS ORDERED: PIPERACILLIN/TAZOBACTAM 3.375 GM in DEXTROSE 5% 100 ML IV ONE (03:00)
[2020-03-25] MEDS ORDERED: VANCOMYCIN HCL 2,000 MG in SODIUM CHLORIDE 0.9% 500 ML IV ONE (03:15)
[2020-03-25 03:47] LABS: Basophils # (auto) 0.03 K/uL (0-0.2); Basophils % (auto) 0.4 %; Eosinophils # (auto) 0.17 K/uL (0-0.5); Eosinophils % (auto) 2.2 %; Hematocrit (blood only) 34.6 % (42-52); Hemoglobin 11.5 g/dL (14.0-18.0); Immature Granulocytes # (auto) 0.04 K/uL (0.00-0.02); Immature Granulocytes % (auto) 0.5 %; Lymphocytes # (auto) 1.26 K/uL (1.2-3.4); Lymphocytes % (auto) 16.1 %; Mean Corpuscular Hemoglobin 29.6 pg (25-34); Mean Corpuscular Hgb Conc 33.2 g/dL (32-36); Mean Corpuscular Volume 88.9 fL (80-100); Mean Platelet Volume 10.1 fL (7.4-10.4); Monocytes # (auto) 0.62 K/uL (0.11-0.59); Monocytes % (auto) 7.9 %; Neutrophils # (auto) 5.71 K/uL (1.4-6.5); Neutrophils % (auto) 72.9 %; Platelet Count 189 K/uL (130-400); RDW Coefficient of Variation 13.7 % (11.5-14.5); RDW Standard Deviation 43.9 fL (36.4-46.3); Red Blood Count 3.89 M/uL (4.7-6.1); White Blood Count 7.83 K/uL (4.8-10.8)
--- NOTE | 2020-03-25 03:57 | History & Physical Report ---
Date of Service March 25, 2020 Assessment & Plan (1) Admitted to intensive care unit: For close observation due to hemoptysis. The intensive care unit staff is consulted Present on Admission?: Yes (2) Cough with hemoptysis: Patient describes symptoms more related to the base of the pharynx, bringing up a concern regarding a possible diverticulum with bleeding. CT of chest and soft tissue of neck performed. Will likely need direct visualization. NPO H&H every 6 hours Given DDAVP to reverse Plavix. Given Inhaled TXA Present on Admission?: Yes (3) Acute ischemic multifocal multiple vascular territories stroke: No suggestion of acute findings on examination. Present on Admission?: Yes (4) HTN (hypertension): Hold losartan and amlodipine at this time due to blood pressure in low normal range. Present on Admission?: Yes (5) Hyperlipidemia: Hold atorvastatin for now. Present on Admission?: Yes (6) GERD (gastroesophageal reflux disease): Change pantoprazole to IV Present on Admission?: Yes Admission and Anticipated Discharge Date Admission Date: March 25, 2020 History of Present Illness Chief Complaint: The patient presented to the emergency department with stated complaint of vomiting blood. Primary Care Provider: Jil Hoang MD The patient is an 79-year-old male with a past medical history including ischemic multifocal multiple vascular territories stroke, depression, ataxia, hypertension, history of kidney stones and history of bilateral knee surgeries. The patient presented to the emergency department with stated complaint of vomiting blood, however, it appears more likely that the patient is having hemoptysis as opposed to hematemesis. After discussion with ED physician and ICU staff, the patient will be given DDAVP while in the ED to reverse the antiplatelet effect of Plavix, and will be given inhaled TXA as well. Plan is to admit the patient to the ICU for close monitoring. The patient points to the base of his throat, and says it feels like there is an uncomfortable sensation there. Allergies Allergy/AdvReac Type Severity Reaction Status Date / Time lisinopril AdvReac Mild cough Verified 03/25/20 00:06 Home Medications Home Medications Medication Instructions Recorded Confirmed Type losartan 50 mg PO BIDM 09/23/18 03/25/20 History amlodipine 5 mg PO PM 12/01/19 03/25/20 History hygcooei-srt-bpvke acid 0.4 1 tab PO QAM 02/10/20 03/25/20 History mg-lycopene 300 mcg-lutein 250 mcg tablet pantoprazole 20 mg tablet,delayed 20 mg PO BID tab 02/10/20 03/25/20 History release atorvastatin [Lipitor] 40 mg PO PM 03/23/20 03/25/20 History clopidogrel [Plavix] 75 mg PO PM 03/23/20 03/25/20 History Past Med/Surg History Medical History (Updated 03/25/20 @ 03:57 by Giles Thomason MD) GERD (gastroesophageal reflux disease) History of kidney stones passed on own HTN (hypertension) Hx of diverticulitis of colon Hyperlipidemia Rupture of colon IN 2005> 12 IN COLON REMOVED Stroke NOVEMBER 2019 > [facility] > NO RESIDUAL EFFECTS> PLAVIX > SAW DR[facility]> NO FURTHER FOLLOW UP Surgical History H/O left knee surgery arthroscopic H/O right knee surgery arthroscopic History of colonoscopy History of colostomy REVERSED 2005 History of cystoscopy History of esophagogastroduodenoscopy (EGD) Pilonidal cyst WITH REPAIR Family History Mother Colorectal cancer Father Respiratory care problem Social History Smoking Status: Never smoker Second Hand Exposure: No; Hx Alcohol Use: No Hx Substance Use: No Preferred Language: Slovak Communication Ability: Effective Principal Quality Engineer Required: No Beliefs That Will Affect Care: None Current Living Situation: Spouse Other Information That Helps Us Care for You: No Feels Safe at Home: Yes Safety Concerns: Feels Safe At This Time Assistive Devices: Glasses and Hearing Aid - Bilateral Review of Systems Review of Systems: The patient denies chest pain, palpitations, shortness of breath, dyspnea on exertion, lower extremity swelling, fevers, chills, sweats,nausea, vomiting, diarrhea , constipation, abdominal pain, pelvic pain, blood in urine or stool, dysuria, urinary frequency or urgency, lightheadedness, dizziness, headache, memory loss, loss of consciousness, rash, imbalance, focal or generalized weakness, numbness or tingling in arms or legs, generalized arthralgias or myalgias, back or neck pain, or night sweats. The review of systems is otherwise negative other than for that already noted above, and at least 10 systems have been reviewed. Physical Exam Physical Exam: The patient is awake, alert and oriented 3, well developed and well nourished, normocephalic and atraumatic, lying in bed and in no acute dis tress. HEENT--PERRL, EOMI, mucous membranes and oropharynx with dried blood. Neck--supple. No JVD. No bruits. Thyroid normal, trachea midline, no adenopathy. Heart--normal S1 and S2. No murmurs, rubs or gallops. Lungs--clear bilaterally, no respiratory distress, no accessory muscle use. Abdomen--normal bowel sounds and soft. Nontender. Nondistended. Extremities--no cyanosis or clubbing. No edema. Dermatologic--normal skin turgor, normal color, no abnormal lymph nodes, no rash. Neurologic--cranial nerves II through XII grossly intact. Rheumatologic--normal range of motion. Psychiatric--normal affect. Results & Data Results & Data ([facility]) Vital Signs (Past 12 Hours) Vital Signs Temp Pulse Pulse Resp BP BP Pulse Ox 03/25/20 02:30 97.9 F 71 76 20 136/77 94 03/25/20 02:00 69 18 134/85 96 03/25/20 01:44 73 18 142/86 H 98 03/25/20 01:15 69 18 149/89 H 97 03/25/20 01:07 66 18 99 03/25/20 00:45 60 20 160/85 H 96 03/25/20 00:15 63 22 136/72 96 03/25/20 00:11 69 18 162/90 H 98 03/24/20 23:56 72 20 143/77 H 97 03/24/20 23:20 89 L 03/24/20 23:07 97.9 F 87 16 172/83 H 93 Pulse Ox 03/25/20 02:30 94 03/25/20 02:00 03/25/20 01:44 03/25/20 01:15 03/25/20 01:07 03/25/20 00:45 03/25/20 00:15 03/25/20 00:11 03/24/20 23:56 03/24/20 23:20 03/24/20 23:07 Laboratory Results Laboratory Results WBC 7.83 K/uL (4.8-10.8) 03/25/20 03:26 RBC 3.89 M/uL (4.7-6.1) L 03/25/20 03:26 Hgb 11.5 g/dL (14.0-18.0) L 03/25/20 03:26 POC Hgb 13.6 g/dl (14.0-18.0) L 03/24/20 23:28 Hct 34.6 % (42-52) L 03/25/20 03:26 POC Hct 40 % (42-52) L 03/24/20 23:28 MCV 88.9 fL (80-100) 03/25/20 03:26 MCH 29.6 pg (25-34) 03/25/20 03:26 MCHC 33.2 g/dL (32-36) 03/25/20 03:26 RDW Std Deviation 43.9 fL (36.4-46.3) 03/25/20 03:26 RDW Coeff of Luca 13.7 % (11.5-14.5) 03/25/20 03:26 Plt Count 189 K/uL (130-400) 03/25/20 03:26 MPV 10.1 fL (7.4-10.4) 03/25/20 03:26 Immature Gran % (Auto) 0.5 % 03/25/20 03:26 Neut % (Auto) 72.9 % 03/25/20 03:26 Lymph % (Auto) 16.1 % 03/25/20 03:26 Butler % (Auto) 7.9 % 03/25/20 03:26 Eos % (Auto) 2.2 % 03/25/20 03:26 Baso % (Auto) 0.4 % 03/25/20 03:26 Neut # (Auto) 5.71 K/uL (1.4-6.5) 03/25/20 03:26 Lymph # (Auto) 1.26 K/uL (1.2-3.4) 03/25/20 03:26 Butler # (Auto) 0.62 K/uL (0.11-0.59) H 03/25/20 03:26 Eos # (Auto) 0.17 K/uL (0-0.5) 03/25/20 03:26 Baso # (Auto) 0.03 K/uL (0-0.2) 03/25/20 03:26 Immature Gran # (Auto) 0.04 K/uL (0.00-0.02) H 03/25/20 03:26 PT 10.3 Seconds (9.0-12.0) 03/24/20 23:24 INR 1.0 (0.9-1.1) 03/24/20 23:24 APTT 24.9 Seconds (21.0-31.0) 03/24/20 23:24 PTT Ratio 0.9 03/24/20 23:24 POC Sodium 141 mmol/L (135-144) 03/24/20 23:28 Sodium 141 mmol/L (136-145) 03/24/20 23:24 POC Potassium 3.9 mmol/L (3.3-5.0) 03/24/20 23:28 Potassium 4.0 mmol/L (3.5-5.1) 03/25/20 00:07 POC Chloride 105 mmol/L (101-112) 03/24/20 23:28 Chloride 108 mmol/L (98-107) H 03/24/20 23:24 Carbon Dioxide 26 mmol/L (21-32) 03/24/20 23:24 POC Total CO2 25 mmol/L (24-31) 03/24/20 23:28 Anion Gap 6.0 (3-11) 03/24/20 23:24 POC Anion Gap 17.0 mmol/L (16-25) 03/24/20 23:28 POC BUN 22 mg/dl (7-18) H 03/24/20 23:28 BUN 20 mg/dl (7-18) H 03/24/20 23:24 Creatinine 1.37 mg/dl (0.6-1.4) 03/24/20 23:24 POC Creatinine 1.2 mg/dl (0.6-1.3) 03/24/20 23:28 Est Cr Clr Drug Dosing Not Reportable 03/24/20 23:24 Est GFR ( Amer) 55.7 03/24/20 23:24 Est GFR (Non-Af Amer) 48.0 03/24/20 23:24 BUN/Creatinine Ratio 14.8 (10-20) 03/24/20 23:24 Glucose 127 mg/dl (70-99) H 03/24/20 23:24 POC Glucose 150 mg/dl (70-99) H 03/25/20 02:36 POC Glucose (other) 127 mg/dl (70-99) H 03/24/20 23:28 Calcium 10.6 mg/dl (8.5-10.1) H 03/24/20 23:24 POC Ioniz Calcium Susan 1.28 mmol/l (1.12-1.32) 03/24/20 23:28 Total Bilirubin 0.6 mg/dl (0.2-1) 03/24/20 23:24 AST 17 U/L (15-37) 03/25/20 00:07 ALT 34 U/L (12-78) 03/24/20 23:24 Alkaline Phosphatase 93 U/L (45-117) 03/24/20 23:24 Troponin I < 0.015 ng/ml (0-0.045) 03/24/20 23:24 Total Protein 7.6 gm/dl (6.4-8.2) 03/24/20 23:24 Albumin 4.0 gm/dl (3.4-5.0) 03/24/20 23:24 Globulin 3.6 gm/dl (2.5-4.0) 03/24/20 23:24 Albumin/Globulin Ratio 1.1 (0.9-2) 03/24/20 23:24 POC Stool Occult Blood Negative (Negative) 03/25/20 Unknown Blood Type O Positive 03/24/20 23:24 Antibody Screen NEGATIVE 03/24/20 23:24 Crossmatch See Detail 03/24/20 23:24 None Diagnostic Findings [facility] Patient: JOYCE ZAMUDIO (Male) : 36 Status: ER Date: 03/25/20 00:04 Room #: History: SPITTING UP BLOOD, NO CHEST PAIN OR COUGH Slices: [phone] Priors: Tech: Pascual Narvaez @ [phone] Exams: CT CHEST With Contrast Contrast: IV Amt: 93 ML OPTIRAY 320 Accession Numbers: [id number] Preliminary Findings Only See Final Report For Complete Findings CT CHEST With Contrast: Groundglass and peribronchovascular opacities in the right middle and lower lobes suggestive of nonspecific infection. Aspiration also on the differential. No central pulmonary embolism. 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 Severe coronary artery calcifications. Chronic fracture deformities in the ribs bilaterally. Radiologist: Meño Balderas MD Study ready at 00:13 and initial results transmitted at 00:34 *This report constitutes a preliminary interpretation only. Non-acute findings felt to be unrelated to the clinical presentation may not be discussed in this report. The study will be interpreted and a final report will be generated by the local Radiologist the following shift. To reach the hospital radiology department call [phone]. If a discrepancy is found between the preliminary and final interpretations of this study, please notify us via our Client Portal at [email or web address].You can also fax this report with a description of the discrepancy, or include the final report, to our daytime fax number [phone].If faxing, please indicate the severity of discrepancy using one of the following categories: [ ] 1 - Agree/Informational [ ] 2 - Unlikely to Affect Management [ ] 3 - Possible Eventual Change of Management [ ] 4 - Probable Immediate Change of Management For all other patient related information, please fax us at [phone]. [id number] [facility] Patient: JOYCE ZAMUDIO (Male) : 36 Status: ER Date: 03/25/20 01:40 Room #: History: R/O AIRWAY BLEEDING, COUGHING UP BLOOD Slices: 595 Priors: Tech: Pascual Narvaez @ [phone] Exams: CT NECK Contrast: Accession Numbers: [id number] Preliminary Findings Only See Final Report For Complete Findings CT NECK: Cannot evaluate for active bleeding due to lack of intravenous contrast. No evidence of mass. Small amount of layering material within the thoracic trachea, could represent blood given history. Glottis is closed during exam and there is motion artifact, which limits evaluation. Airway is otherwise patent. Normal epiglottis. Carotid and vertebral artery calcifications, as better evaluated on prior CTA 12/01/19. Tonsilloliths. Multilevel degenerative changes of cervical spine Radiologist: Ivan Khan MD Study ready at 01:50 and initial results transmitted at 02:37 *This report constitutes a preliminary interpretation only. Non-acute findings felt to be unrelated to the clinical presentation may not be discussed in this report. The study will be interpreted and a final report will be generated by the local Radiologist the following shift. To reach the hospital radiology department call [phone]. If a discrepancy is found between the preliminary and final interpretations of this study, please notify us via our Client Portal at [email or web address].You can also fax this report with a description of the discrepancy, or include the final report, to our daytime fax number [phone].If faxing, please indicate the severity of discrepancy using one of the following categories: [ ] 1 - Agree/Informational [ ] 2 - Unlikely to Affect Management [ ] 3 - Possible Eventual Change of Management [ ] 4 - Probable Immediate Change of Management For all other patient related information, please fax us at [phone]. [id number] Code Status & VTE Plan Code Status Full code VTE Prophylaxis Plan VTE Prophylaxis will be ordered: Yes Critical Care Time Critical Care Time: Yes Total Critical Care Time: 45 Total critical care time was 45 minutes PG Care Time/CCT Total # of Minutes Spent Total Time Spent with Patient: Total time spent is greater than 50% in coordination of care (as documented) at patient's floor/unit and/or counseling patient: Critical Care Time: Yes Total Critical Care Time: 45 Coding Level of Care Code 03111 Initial Inpt Care Lvl 3 Diagnoses Admitted to intensive care unit Z78.9 Cough with hemoptysis R04.2 Acute ischemic multifocal multiple vascular territories stroke I63.89 HTN (hypertension) I10 Hyperlipidemia E78.5 GERD (gastroesophageal reflux disease) K21.9 Additional Codes Critical Care Time - Critical Care Time: Yes ([id number]) Time Spent (min) 45
[2020-03-25 04:08] LABS: Alanine Aminotransferase 26 U/L (12-78); Albumin Level 3.3 gm/dl (3.4-5.0); Aspartate Aminotransferase 16 U/L (15-37); BUN Creatinine Ratio 16.7 (10-20); Bilirubin Direct 0.1 mg/dl (0-0.2); Blood Urea Nitrogen 20 mg/dl (7-18); Calcium 9.3 mg/dl (8.5-10.1); Carbon Dioxide 26 mmol/L (21-32); Chloride 110 mmol/L (98-107); Creatinine Clr Calc Pharmacy 54.5 ml/min; Est GFR (African American) 67.4; Est GFR (Non-African American) 58.1; Glucose 143 mg/dl (70-99); Magnesium 1.9 mg/dl (1.8-2.4); Potassium 3.9 mmol/L (3.5-5.1); Sodium 140 mmol/L (136-145)
[2020-03-25 04:10] LABS: BUN Creatinine Ratio 17.3 (10-20); Calcium 9.4 mg/dl (8.5-10.1); Creatinine Clr Calc Pharmacy 54.5 ml/min; Est GFR (African American) 67.4; Est GFR (Non-African American) 58.1; Potassium 3.8 mmol/L (3.5-5.1)
[2020-03-25 04:16] LABS: Alkaline Phosphatase 78 U/L (45-117); Bilirubin,Total 0.4 mg/dl (0.2-1); Phosphorus 3.2 mg/dl (2.5-4.9); Total Protein 6.3 gm/dl (6.4-8.2); Troponin I < 0.015 ng/ml (0-0.045)
--- NOTE | 2020-03-25 07:49 | CT Scan Report ---
CT OF THE CHEST WITH IV CONTRAST CLINICAL HISTORY: Hemoptysis. COMPARISON STUDY: Chest CT March 21, 2009. Chest radiograph September 23, 2018. TECHNIQUE: Following IV administration of 93 mL of Optiray-320, helical axial images of the chest we re obtained. Sagittal and coronal reconstructions were viewed as well as maximal intensity projectio ns on an independent 3-D workstation. Automated exposure control was utilized for the study. A dose lowering technique was utilized adhering to the principles of ALARA. CT DOSE: 531.88 mGy.cm FINDINGS: The heart is mildly enlarged. There is extensive coronary artery calcification. The ascend ing thoracic aorta is ectatic, measuring 4.2 cm. There is moderate plaque of the thoracic aorta witho ut dissection. There is no pericardial effusion. No pneumothorax or pleural effusion is noted. No enl arged axillary, mediastinal or hilar lymph nodes are present. There are mild secretions within the ce ntral airways. Note is made of moderate multifocal airspace opacities within the right middle lobe. M ild groundglass opacities within the lower lobes, greater on the right, is noted. There is no cavitat ion. There is no central obstructing mass. There are gallstones within the gallbladder. Gallbladder i s not distended. IMPRESSION: 1. Groundglass and nodular airspace opacities within the right middle lobe and ground glass opacities within the bilateral lower lobes, greater on the right. The findings favor an infectious process. As piration or pulmonary hemorrhage could appear similar. 2. Extensive coronary artery calcification. Mildly dilated ascending aorta, measuring 4.2 cm. No thor acic aortic dissection. ACT 112: Negative or not required by law. Electronically signed by: Valdemar Evans M.D. 03/25/2020 7:48 AM
--- NOTE | 2020-03-25 07:59 | CT Scan Report ---
CT SCAN OF THE NECK WITHOUT IV CONTRAST CLINICAL HISTORY: Hemoptysis. COMPARISON STUDY: CT angiogram of the neck dated 12/01/2019. TECHNIQUE: Unenhanced CT scan of the soft tissues of the neck was performed from the skull base to th e upper chest. Images are reviewed in the axial, sagittal, and coronal planes. IV contrast was not a dministered for this examination. Note that the examination was performed in significantly suboptimal fashion without IV contrast. A dose lowering technique was utilized adhering to the principles of A TRENT. The examination is modestly degraded by motion artifact. CT DOSE: 631.38 mGy.cm FINDINGS: Pharynx: The unenhanced pharyngeal soft tissues are normal as imaged. The pharyngeal airway is widely patent. There is no evidence of mass lesion on this unenhanced examination. The vocal cords are symm etric. The epiglottis is normal. The parapharyngeal fat is well maintained. The prevertebral/retropha ryngeal soft tissues are within normal limits. Scattered calcified tonsilliths are observed. Lymphadenopathy: No cervical lymphadenopathy is seen Thyroid: Normal in size and attenuation. Salivary glands: The parotid and submandibular glands are within normal limits. Brain parenchyma: The visualized brain parenchyma at the skull base is normal in appearance noting ag e-related involutional change. Skeletal structures: The skeletal structures are osteopenic. Imaged portions of the calvarium at the skull base are within normal limits. The cervical spine is maintained noting multilevel spondylosis. No lytic or blastic lesion is seen. Sinuses and mastoids: Trace mucosal thickening is noted in the left maxillary antrum and the right fr ontal sinus. The remaining paranasal sinuses are clear. The mastoid air cells are well pneumatized. Orbits: The bony orbits are intact. Orbital contents are normal in appearance. Lung apices: Secretions are noted in the trachea. The visualized upper lobe lung parenchyma appears c lear. IMPRESSION: 1. Significantly suboptimal examination without IV contrast. 2. No pharyngeal abnormality is identified on this unenhanced examination. 3. Secretions are noted in the trachea. ACT 112: Negative or not required by law. Electronically signed by: Flaco Joshua M.D. 03/25/2020 7:58 AM
[2020-03-25] MEDS ORDERED: PIPERACILLIN/TAZOBACTAM 3.375 GM in DEXTROSE 5% 100 ML IV SCH (08:00)
[2020-03-25] MEDS ORDERED: VANCOMYCIN HCL 1,000 MG in SODIUM CHLORIDE 0.9% 250 ML IV SCH (09:00)
[2020-03-25 09:06] LABS: Hematocrit (blood only) 34.3 % (42-52); Hemoglobin 11.4 g/dL (14.0-18.0)
[2020-03-25] MEDS ORDERED: STAT IV Infusion **Titration per Protocol STA ×2 (10:22→17:50)
[2020-03-25] MEDS ORDERED: DEXMEDETOMIDINE HCL 200 MCG in SODIUM CHLORIDE 0.9% 48 ML IV PRN (10:30)
[2020-03-25] MEDS ORDERED: GLUCOSE 40% GEL 15 GM TUBE PO PRN (10:45)
[2020-03-25] MEDS ORDERED: CARBOHYDRATES FOR HYPOGLYCEMIA PO PRN (10:45)
[2020-03-25] MEDS ORDERED: GLUCOSE 10 TABS/TUBE PO PRN (10:45)
[2020-03-25] MEDS ORDERED: GLUCAGON FOR INJ 1 MG VIAL IM PRN (10:45)
[2020-03-25] MEDS ORDERED: NORMOSOL-R 1,000 ML IV SCH (10:45)
[2020-03-25] MEDS ORDERED: DEXTROSE 50% 50 ML SYRINGE IV PRN (10:45)
[2020-03-25] MEDS ORDERED: PANTOprazole 40 MG in SYRINGE 0 ML IV SCH (11:00)
[2020-03-25] MEDS ORDERED: cefTRIAXone SODIUM 2,000 MG in DEXTROSE 5% 50 ML IV SCH (11:00)
[2020-03-25] MEDS ORDERED: LEVOFLOXACIN/D5W 750 MG/150 ML BAG IV SCH (12:00)
[2020-03-25 12:02] LABS: Adenovirus PCR Not Detected (NotDetected); Bordetella parapertussis PCR Not Detected (NotDetected); Bordetella pertussis PCR Not Detected (NotDetected); Chlamydia pneumoniae PCR Not Detected (NotDetected); Coronavirus 229E PCR Not Detected (NotDetected); Coronavirus CoV-2 (COVID19)PCR Not Detected (NotDetected); Coronavirus HKU1 PCR Not Detected (NotDetected); Coronavirus NL63 PCR Not Detected (NotDetected); Coronavirus OC43PCR Not Detected (NotDetected); Human Metapneumovirus PCR Not Detected (NotDetected); Influenza A PCR Not Detected (NotDetected); Influenza B PCR Not Detected (NotDetected); Mycoplasma pneumoniae PCR Not Detected (NotDetected); Parainfluenza Virus 1 PCR Not Detected (NotDetected); Parainfluenza Virus 2 PCR Not Detected (NotDetected); Parainfluenza Virus 3 PCR Not Detected (NotDetected); Parainfluenza Virus 4 PCR Not Detected (NotDetected); Respiratory Syncytial VirusPCR Not Detected (NotDetected); Rhinovirus/Enterovirus PCR Not Detected (NotDetected)
[2020-03-25] MEDS: INSULIN ASPART 100 UNITS/ML 3 ML PEN SC SCH ×2 (14:47→19:52)
--- NOTE | 2020-03-25 16:55 | Procedure Note ---
Procedure Note: Bronchoscopy Procedure Procedure date: March 25, 2020 Procedure: fiberoptic bronchoscopy Pre-procedure indication: Hemoptysis Post-procedure Diagnosis: same as above Prior to Procedure: Informed Consent: The risks, benefits, indications, potential complications, and alternatives were explained to the patient and informed consent obtained. Attending Staff: Armaan Rodrigez DO Resident/APC: Jennyfer Skin Prep: Not applicable Anesthesia: Continuous infusion of Precedex with fentanyl IV pushes. The identity of the patient was confirmed and a bedside time out was performed. Description of Procedure: Fiberoptic bronchoscopy was performed via full facemask BiPAP. Please see procedural sedation note for additional details. Upon initial entry into the airway there appeared to be blood scattered throughout the entire main bronchus. Initially the left main appeared to be clear distally and the source appeared to be coming from the right side. Advancing into the right upper lobe segmental and subsegmental bronchi appeared clear without any evidence of bleeding. Advancing into the right middle the lateral bronchus appeared to be the source of bleeding and had clot obscuring most of the lumen acting partially as a ball valve. Applying light suction would easily remove fragments of the clot, and the entire clot appeared to easily remove. This did not appear to be an endobronchial lesion. After removal of the clot brisk bleeding was noted it was nonpulsatile in nature. Initial intervention was chilled saline aliquots x3, this did not slow down the brisk oozing. Lidocaine with epinephrine was then instilled into the bronchus. This appeared to slow down the using but did not stop the bleeding. At this point I made the decision to remove the bronchoscope and proceed with securing the airway. Please refer to intubation note which was routine and uneventful. The bronchoscope was reinserted through the endotracheal tube and positioning of the tube was noted to be 3 cm above the sobeida. I again examined the right middle lateral lobe with still continued appear to be the origin of the bleeding. 500 mg of TXA (5 mL) was instilled into the right middle bronchus. After approximately a minute of occlusion I examined the additional airways. Again the left lobes appeared to be clear. The right upper lobe appeared to be clear. I proceeded into the right lower lobes there was blood in the airways which cleared easily. Based off of the previous CT scan I obtained serial lavage from the right lower lobe. There was no evidence of diffuse alveolar hemorrhage. A specimen was obtained and sent to the lab for analysis. After this I reexamined the right middle bronchus, the lateral bronchus appeared to stop losing and the medial bronchus remained largely clear. At this point I ended the bronchoscopy. Complications: Bronchial hemorrhage from the right middle lateral bronchi Specimens: Bronchial washings sent for culture and Gram stain, fungal elements, AFB stain and culture, cell count differential. Estimated blood loss: Zero
--- NOTE | 2020-03-25 16:57 | Pre Anesthesia Assessment ---
Date of Service March 25, 2020 Pre Sedation Assessment Vital Signs Temp Pulse Pulse Resp BP BP Pulse Ox 03/25/20 11:01 71 20 159/85 H 03/25/20 10:00 70 21 145/79 H 93 03/25/20 09:00 36.8 C 72 19 141/66 H 94 03/25/20 08:43 67 21 137/70 93 03/25/20 08:00 68 22 149/87 H 93 03/25/20 07:01 69 18 130/83 93 03/25/20 06:00 36.3 C L 03/25/20 05:30 78 18 93 03/25/20 05:00 74 15 105/53 L 94 03/25/20 04:30 68 18 92 03/25/20 04:00 69 15 122/53 L 92 03/25/20 03:30 76 20 92 03/25/20 03:00 70 16 121/52 L 93 03/25/20 02:31 72 19 136/77 95 03/25/20 02:30 36.6 C 84 76 18 136/77 96 03/25/20 02:00 69 18 134/85 96 03/25/20 01:44 73 18 142/86 H 98 03/25/20 01:15 69 18 149/89 H 97 03/25/20 01:07 66 18 99 03/25/20 00:45 60 20 160/85 H 96 03/25/20 00:15 63 22 136/72 96 03/25/20 00:11 69 18 162/90 H 98 03/24/20 23:56 72 20 143/77 H 97 03/24/20 23:20 89 L 03/24/20 23:07 36.6 C 87 16 172/83 H 93 Pulse Ox 03/25/20 11:01 03/25/20 10:00 03/25/20 09:00 03/25/20 08:43 03/25/20 08:00 03/25/20 07:01 03/25/20 06:00 03/25/20 05:30 03/25/20 05:00 03/25/20 04:30 03/25/20 04:00 03/25/20 03:30 03/25/20 03:00 03/25/20 02:31 03/25/20 02:30 94 03/25/20 02:00 03/25/20 01:44 03/25/20 01:15 03/25/20 01:07 03/25/20 00:45 03/25/20 00:15 03/25/20 00:11 03/24/20 23:56 03/24/20 23:20 03/24/20 23:07 Pre-Sedation Airway Assessment Smoking Status: Never smoker Hx Sleep Apnea: No Hx Difficult Intubation: No Short, Thick Neck: No Thyromental Distance: > or= 3.5 Finger Breadths Oral Cavity: + WNL Mallampati Class: II ASA: ASA2 NPO Status Date of Last Intake of Fluids: 03/24/20 Time of Last Intake of Fluids: 22:00 Date of Last Intake of Solid Food: 03/24/20 Time of Last Intake of Solid Foods: 18:00 Notes The planned sedation has been discussed with the patient. Informed Consent was obtained. I have identified the patient, determined the appropriateness of sedation and have assessed the patient immediately prior to the procedure. All medicine(s) and interventions are by my order. Planning continuous infusion sedation of Precedex with occasional as needed fentanyl IV boluses.
[2020-03-25] MEDS ORDERED: fentaNYL citrate 100 MCG/2 ML VIAL IV STA ×2 (16:58→19:38)
--- NOTE | 2020-03-25 16:58 | Post Anesthesia Assessment ---
Date of Service March 25, 2020 Post Sedation Assessment Vital Signs Temp Pulse Pulse Resp BP BP Pulse Ox 03/25/20 18:38 61 16 99 03/25/20 18:10 60 20 109/66 98 03/25/20 18:05 52 L 16 115/71 98 03/25/20 18:00 56 L 16 120/76 98 03/25/20 17:55 60 20 121/70 98 03/25/20 17:50 65 22 121/79 99 03/25/20 17:45 66 20 132/78 99 03/25/20 17:40 91 H 20 149/95 H 99 03/25/20 17:35 81 20 138/84 99 03/25/20 17:30 91 H 20 165/98 H 98 03/25/20 17:25 82 24 152/101 H 97 03/25/20 17:20 67 22 139/84 96 03/25/20 17:15 69 20 158/115 H 99 03/25/20 17:10 60 20 178/104 H 100 03/25/20 11:01 71 20 159/85 H 03/25/20 10:00 70 21 145/79 H 93 03/25/20 09:00 36.8 C 72 19 141/66 H 94 03/25/20 08:43 67 21 137/70 93 03/25/20 08:00 68 22 149/87 H 93 03/25/20 07:01 69 18 130/83 93 03/25/20 06:00 36.3 C L 03/25/20 05:30 78 18 93 03/25/20 05:00 74 15 105/53 L 94 03/25/20 04:30 68 18 92 03/25/20 04:00 69 15 122/53 L 92 03/25/20 03:30 76 20 92 03/25/20 03:00 70 16 121/52 L 93 03/25/20 02:31 72 19 136/77 95 03/25/20 02:30 36.6 C 84 76 18 136/77 96 03/25/20 02:00 69 18 134/85 96 03/25/20 01:44 73 18 142/86 H 98 03/25/20 01:15 69 18 149/89 H 97 03/25/20 01:07 66 18 99 03/25/20 00:45 60 20 160/85 H 96 03/25/20 00:15 63 22 136/72 96 03/25/20 00:11 69 18 162/90 H 98 03/24/20 23:56 72 20 143/77 H 97 03/24/20 23:20 89 L 03/24/20 23:07 36.6 C 87 16 172/83 H 93 Pulse Ox 03/25/20 18:38 03/25/20 18:10 03/25/20 18:05 03/25/20 18:00 03/25/20 17:55 03/25/20 17:50 03/25/20 17:45 03/25/20 17:40 03/25/20 17:35 03/25/20 17:30 03/25/20 17:25 03/25/20 17:20 03/25/20 17:15 03/25/20 17:10 03/25/20 11:01 03/25/20 10:00 03/25/20 09:00 03/25/20 08:43 03/25/20 08:00 03/25/20 07:01 03/25/20 06:00 03/25/20 05:30 03/25/20 05:00 03/25/20 04:30 03/25/20 04:00 03/25/20 03:30 03/25/20 03:00 03/25/20 02:31 03/25/20 02:30 94 03/25/20 02:00 03/25/20 01:44 03/25/20 01:15 03/25/20 01:07 03/25/20 00:45 03/25/20 00:15 03/25/20 00:11 03/24/20 23:56 03/24/20 23:20 03/24/20 23:07 Discharge Sedation Level of Care: Higher Level of Care (Patient was in the ICU and to remain at ICU level care) Post Sedation Plan Patient was given a 40 mcg Precedex bolus over 10 minutes This was followed with 8.3 mcg/kg/min infusion He was also administered 50 mcg fentanyl IV Patient was transitioned to a secure airway at 1800 Medications during intubation was etomidate 40 mg Fentanyl 50 mcg And the airway was secured. Procedural sedation start time was 1710 end time 1800 [facility] Procedure Codes (Charges) Sedation/Anesthesia Procedure 1: Sedation/Anesthesia: 28478 Mod Sedation by the same physician; Ea [id number] Minutes ([id number] with [id number]) Total Sedation Time (minutes): 50
[2020-03-25] MEDS ORDERED: fentaNYL citrate 100 MCG/2 ML VIAL ONE ×2 (17:11→19:41)
[2020-03-25] MEDS ORDERED: LIDOCAINE 4% INH SOLN 4 ML BTL NAE ONE (17:15)
[2020-03-25 17:35] LABS: Hematocrit (blood only) 37.8 % (42-52); Hemoglobin 12.2 g/dL (14.0-18.0)
[2020-03-25] MEDS ORDERED: RAPID SEQUENCE INDUCTION BAG ONE (17:45)
[2020-03-25] MEDS ORDERED: PROPOFOL IV EMULSION 10 MG/ML 100 ML VIAL IV ONE (17:50)
[2020-03-25] MEDS ORDERED: PROPOFOL BOLUS FROM BAG IV PRN (17:50)
[2020-03-25] MEDS ORDERED: TRANEXAMIC ACID 100 MG/ML 10 ML VIAL INH ONE (18:00)
[2020-03-25] MEDS ORDERED: propofoL 1,000 MG/100 ML VIAL IV SCH (18:00)
[2020-03-25] MEDS ORDERED: OPTIRAY 320 125ml IV ONE (18:50)
--- NOTE | 2020-03-25 18:58 | CT Scan Report ---
CT angio chest w con CT DOSE: 754.73 mGycm CLINICAL HISTORY: hemoptysis TECHNIQUE: CT angiography the chest was performed in a dynamic helical fashion during intravenous adm inistration of 120 cc of Optiray 320. MIP images were acquired. A dose lowering technique was utiliz ed adhering to the principles of ALARA. COMPARISON STUDY: 03/24/2020 FINDINGS: Thyroid is unremarkable in appearance. There is an endotracheal tube in place approximately 2 cm above the sobeida. There is mild aneurysmal dilatation of the ascending thoracic aorta which measures 42 mm in diameter. There are no intimal flaps to indicate acute aortic dissection. There are moderate atheromatous plaq ues within the descending thoracic aorta. There are no pathologically enlarged axillary, mediastinal, or hilar lymph nodes. There are no pulmonary artery filling defects to indicate acute pulmonary embolism. It should be note d that this study was timed for evaluation of the thoracic aorta and pulmonary arterial opacification is not optimal. There is marked progression in the patient's pulmonary airspace opacities. There is dense right lower lobe parenchymal consolidation. There is an area of diminished parenchymal attenuation, and developi ng lung necrosis cannot be excluded. There is progressive right middle lobe consolidative change. The re is dense dependent left lower lobe parenchymal consolidation. Note is made of coronary artery calc ifications. There are no significant pleural effusions. There is mild septal edema IMPRESSION: 1. Marked progression in the lower lobe and right middle lobe areas of parenchymal consolidation. 2. Within the right lower lobe, there is an area of diminished right, attenuation. Developing lung ne crosis cannot be excluded. Careful follow-up in this regard is advocated 3. No evidence of thoracic aortic dissection. 4. Fusiform dilatation of the ascending thoracic aorta which measures 42 mm 5. No evidence of pathologic adenopathy 6. Endotracheal tube 2 cm above the sobeida ACT 112: Negative or not required by law. Electronically signed by: Crow Whittaker M.D. 03/25/2020 6:57 PM
--- NOTE | 2020-03-25 19:10 | Communication Note ---
Date of Service: March 25, 2020 Patient underwent bronchoscopy for hemoptysis. His coagulation profile and CBC was largely normal with the exception of anemia presumptively acute blood loss. Please see bronchoscopy for further details however the patient was noted to have continuing ongoing hemorrhage from the right middle lateral lobe that was largely not responsive to cold saline or topical epinephrine and appeared to achieve hemostasis after instillation of TXA into the right middle lateral bronchial. Patient remains intubated, of note a Carlin was inserted and at this time paul hematuria was noted. We are resending a coagulation profile to include fibrinogen as well as the bronchoscopy specimens. I informed the of my findings and recommended he be transferred to [facility] for possible IR intervention and advanced bronchoscopic needs. We will proceed with helicopter transport to minimize time out of the hospital. The patient's hemodynamics are heart rate of 60 blood pressure of 156/56 and an oxygen saturation of 94% on mechanical ventilation: Ventilator settings are: Tidal volume 500 respiratory rate 15 PEEP 5% FiO2 30%. I have personally spent 60 minutes of critical care time in the direct management of this patient. This is a life/limb threatening event. This includes time spent evaluating patient, direct bedside care, chart review, placing orders, interpretation of diagnostic studies, discussion with consultants, patient, and/or family members regarding treatment decisions, as well as other required patient management activities. This time is exclusive of all separately billable procedures, and teaching time and separate from and in addition to any other critical care service time. Coding Level of Care Code Critical Care ea addt'l 30 min Time Spent (min) 60 Comment I have personally spent 60 minutes of critical care time in the direct management of this patient. This is a life/limb threatening event. This includes time spent evaluating patient, direct bedside care, chart review, placing orders, interpretation of diagnostic studies, discussion with consultants, patient, and/or family members regarding treatment decisions, as well as other required patient management activities. This time is exclusive of all separately billable procedures, and teaching time and separate from and in addition to any other critical care service time.
[2020-03-25 19:13] LABS: Basophils # (auto) 0.02 K/uL (0-0.2); Basophils % (auto) 0.3 %; Eosinophils # (auto) 0.09 K/uL (0-0.5); Eosinophils % (auto) 1.2 %; Hematocrit (blood only) 32.7 % (42-52); Immature Granulocytes # (auto) 0.01 K/uL (0.00-0.02); Immature Granulocytes % (auto) 0.1 %; Lymphocytes # (auto) 1.13 K/uL (1.2-3.4); Lymphocytes % (auto) 14.5 %; Mean Corpuscular Hemoglobin 29.5 pg (25-34); Mean Corpuscular Volume 87.7 fL (80-100); Mean Platelet Volume 9.8 fL (7.4-10.4); Monocytes # (auto) 0.61 K/uL (0.11-0.59); Monocytes % (auto) 7.9 %; Neutrophils # (auto) 5.91 K/uL (1.4-6.5); Platelet Count 162 K/uL (130-400); RDW Coefficient of Variation 13.4 % (11.5-14.5); RDW Standard Deviation 43.3 fL (36.4-46.3); Red Blood Count 3.73 M/uL (4.7-6.1); White Blood Count 7.77 K/uL (4.8-10.8)
[2020-03-25 19:18] LABS: Mean Corpuscular Hgb Conc 33.6 g/dL (32-36)
--- NOTE | 2020-03-25 19:29 | Communication Note ---
Date of Service: March 25, 2020 1900: Upon arrival for the beginning of my shift, the patient had just completed bronchoscopy with subsequent endotracheal intubation by my attending provider. Patient was noted to have large clot in the RIGHT middle/lateral bronchus. After clot was removed, the patient had return of bleeding from this area which was described as brisk. After saline, lidocaine with epinephrine, and TXA, there did seem to be some decrease in the amount of bleeding. Attending did proceed with endotracheal intubation for airway protection in the setting of pulmonary hemorrhage. Patient was subsequently sent to CTA where findings demonstrated worsening consolidation in the RIGHT middle and lower lobes. No vascular abnormalities were noted. Patient currently sedated on propofol and fentanyl PRN. I spoke to hydrological technical officer, Dr. Eda Burks and Pulmonary Interventionalist, Dr. Arenas, who accepts the patient in transfer. Orders were placed to maintain patient's level sedation to limit risk for endotracheal tube dislodgment or worsening bleeding. Patient to be transferred via [facility] to [facility] for further evaluation and possible intervention. I have personally spent 31 minutes of critical care time in the direct management of this patient. This is a life/limb threatening event. This includes time spent evaluating patient, direct bedside care, chart review, placing orders, interpretation of diagnostic studies, discussion with consultants, patient, and family members, as well as other required patient management activities. This time is exclusive of all separately billable procedures, and teaching time and separate from and in addition to any other critical care service time. Coding Level of Care Code Critical Care jewell salamancat'l 30 min
--- NOTE | 2020-03-25 19:36 | Discharge Summary ---
Date of Service March 25, 2020 Admission HPI Per Admitting Provider The patient is an 79-year-old male with a past medical history including ischemic multifocal multiple vascular territories stroke, depression, ataxia, hypertension, history of kidney stones and history of bilateral knee surgeries. The patient presented to the emergency department with stated complaint of vomiting blood, however, it appears more likely that the patient is having hemoptysis as opposed to hematemesis. After discussion with ED physician and ICU staff, the patient will be given DDAVP while in the ED to reverse the antiplatelet effect of Plavix, and will be given inhaled TXA as well. Plan is to admit the patient to the ICU for close monitoring. The patient points to the base of his throat, and says it feels like there is an uncomfortable sensation there. Discharge Data Consultations 03/25/20 01:40 ED Decision to Admit Stat 03/25/20 02:52 Consult Case Management - Discharge Planning Routine Consult Track Oiler Routine 03/25/20 19:07 Burn CD for patient Stat Hospital Course (1) Admitted to intensive care unit: Reason Critically Ill: 79-year-old male with concerns for hemoptysis and need for close monitoring for possible need for airway intervention. NEURO - * CAM ICU: NEGATIVE * History of CVA: * Hold Plavix pending ongoing evaluation. CARDIAC/VASCULAR - * Hypertension, hyperlipidemia * Continue home medications as tolerated. * Monitor on telemetry. RESPIRATORY - * Hemoptysis: * Concerns for upper airway bleeding. Patient noted to have moderate bright red blood with upper airway clearing. * Exam not consistent with bleeding from the naris. * Rectal exam Hemoccult negative. * CT chest demonstrates RIGHT lower lobe infiltrate concerning for degree of aspiration. * Currently covered with antibiotics. * Patient received nebulized TXA in the emergency department. Repeat as needed. * Consider early airway intervention for further evaluation of sources of bleeding if needed. * Hold Plavix. GI/NUTRITION - * GERD * Prophylaxis: Protonix RENAL/LYTES - * No significant electrolyte derangements. - * No concerns at this time. ENDO - * No history of diabetes or thyroid disease. * BSGs per unit protocol. ISS --> gtt per unit policy. HEME - * Stable H&H. * Trend H&H in the setting of bleeding. ID - * Aspiration pneumonia. * Treated with Zosyn. LINES/IV ACCESS - * PIVs x2 DVT PROPHYLAXIS - * Hold on anticoagulation in the setting of possible hemoptysis. * SCDs Thank you for allowing us to participate in the care of this patient. Please refer to my attending physician's documentation for any further recommendations. (2) Cough with hemoptysis: (3) Hyperlipidemia: (4) GERD (gastroesophageal reflux disease): (5) Stroke-like symptoms: (6) Acute ischemic multifocal multiple vascular territories stroke:
--- NOTE | 2020-03-25 19:43 | Hospitalist Progress Note ---
Date of Service March 25, 2020 Assessment & Plan (1) Acute respiratory failure with hypoxia: 2nd to RLL/RML pneumonia as seen on CT imaging. Complicated by hemoptysis - uncertain etiology - endobronchial lesion? (although nothing obvious seen during bronch). other? s/p intubation for airway protection during bronchoscopy. (2) Pneumonia: RML/RLL - cont zosyn; cont levaquin. MRSA neg. COVID neg. [employer] resp panel neg. Bronch cultures sent. Complicated by hemoptysis - see below. (3) Hemoptysis: Exact etiology uncertain. s/p bronch - see procedure note. Now intubated & receiving mech ventilation. Decision has been made to send to [facility] for ongoing management. Agree w/ rechecking coags, fibrinogen, etc. Platelets noted to be normal. Certainly his chronic plavix could be making the bleeding worse. (4) Hematuria: started s/p medina insertion. may simply be from trauma - likely to have BPH given his age. allow to clear. checking coags. (5) GERD (gastroesophageal reflux disease): (6) Hyperlipidemia: (7) Depression: (8) HTN (hypertension): (9) History of stroke: noted was on chronic plavix at home for secondary prevention patient to transfer to tertiary care due to bleeding from the RML as confirmed on bronchoscopy ICU team has contacted pt's family with events and plan for transfer care d/w Dr Rodrigez Admission and Anticipated Discharge Date Admission Date: March 25, 2020 Subjective events of the day noted. s/p bronch for evaluation of hemoptysis. active bleeding noted in the RML. patient required intubation during the procedure for airway protection. plan is for transfer to tertiary care due to ongoing bleeding. Review of Systems Review of Systems: Unobtainable due to endotracheal tube Physical Exam Constitutional: well developed and well nourished; no acute distress ENMT: ETT in place Respiratory: Auscultation: + diminished lung sounds (right base); no crackles and no wheezes intubated Cardiovascular: Rate/Rhythm: regular rate and regular rhythm Heart Sounds: normal S1 and normal S2; no murmur Vessels: posterior tibial pulses present and dorsalis pedis pulses present; no JVD Extremities: no edema Gastrointestinal (Abdomen): normal bowel sounds, soft, nontender, no hepatosplenomegaly Genitourinary: medina in place with gross hematuria Results & Data Results & Data ([facility]) Vital Signs (Past 12 Hours) Vital Signs Temp Pulse Resp BP BP Pulse Ox 03/25/20 19:00 64 18 100 03/25/20 18:38 61 16 99 03/25/20 18:10 60 20 109/66 98 03/25/20 18:05 52 L 16 115/71 98 03/25/20 18:00 56 L 16 120/76 98 03/25/20 17:55 60 20 121/70 98 03/25/20 17:50 65 22 121/79 99 03/25/20 17:45 66 20 132/78 99 03/25/20 17:40 91 H 20 149/95 H 99 03/25/20 17:35 81 20 138/84 99 03/25/20 17:30 91 H 20 165/98 H 98 03/25/20 17:25 82 24 152/101 H 97 03/25/20 17:20 67 22 139/84 96 03/25/20 17:15 69 20 158/115 H 99 03/25/20 17:10 60 20 178/104 H 100 03/25/20 11:01 71 20 159/85 H 03/25/20 10:00 70 21 145/79 H 93 03/25/20 09:00 36.8 C 72 19 141/66 H 94 03/25/20 08:43 67 21 137/70 93 03/25/20 08:00 68 22 149/87 H 93 Laboratory Results Laboratory Results - last 24 hr 03/24/20 03/24/20 03/24/20 23:24 23:24 23:24 WBC 7.57 RBC 4.71 Hgb 14.1 POC Hgb Hct 42.2 POC Hct MCV 89.6 MCH 29.9 MCHC 33.4 RDW Std Deviation 44.8 RDW Coeff of Luca 13.6 Plt Count 230 MPV 10.1 Immature Gran % (Auto) 0.5 Neut % (Auto) 58.4 Lymph % (Auto) 29.5 [place] % (Auto) 8.7 Eos % (Auto) 2.5 Baso % (Auto) 0.4 Neut # (Auto) 4.42 Lymph # (Auto) 2.23 [place] # (Auto) 0.66 H Eos # (Auto) 0.19 Baso # (Auto) 0.03 Immature Gran # (Auto) 0.04 H Peripher Smr Path Cons PT 10.3 INR 1.0 APTT 24.9 PTT Ratio 0.9 Fibrinogen POC Sodium Sodium POC Potassium Potassium POC Chloride Chloride Carbon Dioxide POC Total CO2 Anion Gap POC Anion Gap POC BUN BUN Creatinine POC Creatinine Est Cr Clr Drug Dosing Est GFR ( Amer) Est GFR (Non-Af Amer) BUN/Creatinine Ratio Glucose POC Glucose POC Glucose (other) Calcium POC Ioniz Calcium Susan Phosphorus Magnesium Total Bilirubin Direct Bilirubin AST ALT Alkaline Phosphatase Troponin I Total Protein Albumin Globulin Albumin/Globulin Ratio Nasal Screen MRSA (PCR) POC Stool Occult Blood Adenovirus (PCR) B. pertussis DNA (PCR) B.parapertussis DNA PCR C. pneumoniae DNA (PCR) Coronavirus OC43 (PCR) Coronavirus HKU1 (PCR) Coronavirus 229E (PCR) COVID-19 PCR Coronavirus NL63 (PCR) Human Metapneumovir PCR Influenza Type A (PCR) Influenza Type B (PCR) M. pneumoniae (PCR) Parainfluenza 1 (PCR) Parainfluenza 2 (PCR) Parainfluenza 3 (PCR) Parainfluenza 4 (PCR) RSV (PCR) Entero/Rhino (PCR) TB Test (QFT) Gold Plus TB Test (QFT) Nil TB Test Mitogen - Nil TB Test Ag - Nil 1 TB Test Ag - Nil 2 Blood Type O Positive Blood Type Recheck Antibody Screen NEGATIVE Crossmatch See Detail 03/24/20 03/24/20 03/25/20 23:24 23:28 00:07 WBC RBC Hgb POC Hgb 13.6 L Hct POC Hct 40 L MCV MCH MCHC RDW Std Deviation RDW Coeff of Luca Plt Count MPV Immature Gran % (Auto) Neut % (Auto) Lymph % (Auto) [place] % (Auto) Eos % (Auto) Baso % (Auto) Neut # (Auto) Lymph # (Auto) [place] # (Auto) Eos # (Auto) Baso # (Auto) Immature Gran # (Auto) Peripher Smr Path Cons PT INR APTT PTT Ratio Fibrinogen POC Sodium 141 Sodium 141 POC Potassium 3.9 Potassium 4.0 POC Chloride 105 Chloride 108 H Carbon Dioxide 26 POC Total CO2 25 Anion Gap 6.0 POC Anion Gap 17.0 POC BUN 22 H BUN 20 H Creatinine 1.37 POC Creatinine 1.2 Est Cr Clr Drug Dosing Not Reportable Est GFR ( Amer) 55.7 Est GFR (Non-Af Amer) 48.0 BUN/Creatinine Ratio 14.8 Glucose 127 H POC Glucose POC Glucose (other) 127 H Calcium 10.6 H POC Ioniz Calcium Susan 1.28 Phosphorus Magnesium Total Bilirubin 0.6 Direct Bilirubin AST 17 ALT 34 Alkaline Phosphatase 93 Troponin I < 0.015 Total Protein 7.6 Albumin 4.0 Globulin 3.6 Albumin/Globulin Ratio 1.1 Nasal Screen MRSA (PCR) POC Stool Occult Blood Adenovirus (PCR) B. pertussis DNA (PCR) B.parapertussis DNA PCR C. pneumoniae DNA (PCR) Coronavirus OC43 (PCR) Coronavirus HKU1 (PCR) Coronavirus 229E (PCR) COVID-19 PCR Coronavirus NL63 (PCR) Human Metapneumovir PCR Influenza Type A (PCR) Influenza Type B (PCR) M. pneumoniae (PCR) Parainfluenza 1 (PCR) Parainfluenza 2 (PCR) Parainfluenza 3 (PCR) Parainfluenza 4 (PCR) RSV (PCR) Entero/Rhino (PCR) TB Test (QFT) Gold Plus TB Test (QFT) Nil TB Test Mitogen - Nil TB Test Ag - Nil 1 TB Test Ag - Nil 2 Blood Type Blood Type Recheck Antibody Screen Crossmatch 03/25/20 03/25/20 03/25/20 02:30 02:36 03:26 WBC RBC Hgb POC Hgb Hct POC Hct MCV MCH MCHC RDW Std Deviation RDW Coeff of Luca Plt Count MPV Immature Gran % (Auto) Neut % (Auto) Lymph % (Auto) [place] % (Auto) Eos % (Auto) Baso % (Auto) Neut # (Auto) Lymph # (Auto) [place] # (Auto) Eos # (Auto) Baso # (Auto) Immature Gran # (Auto) Peripher Smr Path Cons PT INR APTT PTT Ratio Fibrinogen POC Sodium Sodium 140 POC Potassium Potassium 3.9 POC Chloride Chloride 110 H Carbon Dioxide 26 POC Total CO2 Anion Gap 4.0 POC Anion Gap POC BUN BUN 20 H Creatinine 1.17 POC Creatinine Est Cr Clr Drug Dosing 54.5 Est GFR ( Amer) 67.4 Est GFR (Non-Af Amer) 58.1 BUN/Creatinine Ratio 16.7 Glucose 143 H POC Glucose 150 H POC Glucose (other) Calcium 9.3 POC Ioniz Calcium Susan Phosphorus 3.2 Magnesium 1.9 Total Bilirubin 0.4 Direct Bilirubin 0.1 AST 16 ALT 26 Alkaline Phosphatase 78 Troponin I < 0.015 Total Protein 6.3 L Albumin 3.3 L Globulin Albumin/Globulin Ratio Nasal Screen MRSA (PCR) Negative POC Stool Occult Blood Adenovirus (PCR) B. pertussis DNA (PCR) B.parapertussis DNA PCR C. pneumoniae DNA (PCR) Coronavirus OC43 (PCR) Coronavirus HKU1 (PCR) Coronavirus 229E (PCR) COVID-19 PCR Coronavirus NL63 (PCR) Human Metapneumovir PCR Influenza Type A (PCR) Influenza Type B (PCR) M. pneumoniae (PCR) Parainfluenza 1 (PCR) Parainfluenza 2 (PCR) Parainfluenza 3 (PCR) Parainfluenza 4 (PCR) RSV (PCR) Entero/Rhino (PCR) TB Test (QFT) Gold Plus TB Test (QFT) Nil TB Test Mitogen - Nil TB Test Ag - Nil 1 TB Test Ag - Nil 2 Blood Type Blood Type Recheck Antibody Screen Crossmatch 03/25/20 03/25/20 03/25/20 03:26 03:26 03:26 WBC 7.83 RBC 3.89 L Hgb 11.5 L POC Hgb Hct 34.6 L POC Hct MCV 88.9 MCH 29.6 MCHC 33.2 RDW Std Deviation 43.9 RDW Coeff of Luca 13.7 Plt Count 189 MPV 10.1 Immature Gran % (Auto) 0.5 Neut % (Auto) 72.9 Lymph % (Auto) 16.1 [place] % (Auto) 7.9 Eos % (Auto) 2.2 Baso % (Auto) 0.4 Neut # (Auto) 5.71 Lymph # (Auto) 1.26 [place] # (Auto) 0.62 H Eos # (Auto) 0.17 Baso # (Auto) 0.03 Immature Gran # (Auto) 0.04 H Peripher Smr Path Cons PT INR APTT PTT Ratio Fibrinogen POC Sodium Sodium 141 POC Potassium Potassium 3.8 POC Chloride Chloride 110 H Carbon Dioxide 26 POC Total CO2 Anion Gap 5.0 POC Anion Gap POC BUN BUN 20 H Creatinine 1.17 POC Creatinine Est Cr Clr Drug Dosing 54.5 Est GFR ( Amer) 67.4 Est GFR (Non-Af Amer) 58.1 BUN/Creatinine Ratio 17.3 Glucose 145 H POC Glucose POC Glucose (other) Calcium 9.4 POC Ioniz Calcium Susan Phosphorus Magnesium Total Bilirubin Direct Bilirubin AST ALT Alkaline Phosphatase Troponin I Total Protein Albumin Globulin Albumin/Globulin Ratio Nasal Screen MRSA (PCR) POC Stool Occult Blood Adenovirus (PCR) B. pertussis DNA (PCR) B.parapertussis DNA PCR C. pneumoniae DNA (PCR) Coronavirus OC43 (PCR) Coronavirus HKU1 (PCR) Coronavirus 229E (PCR) COVID-19 PCR Coronavirus NL63 (PCR) Human Metapneumovir PCR Influenza Type A (PCR) Influenza Type B (PCR) M. pneumoniae (PCR) Parainfluenza 1 (PCR) Parainfluenza 2 (PCR) Parainfluenza 3 (PCR) Parainfluenza 4 (PCR) RSV (PCR) Entero/Rhino (PCR) TB Test (QFT) Gold Plus TB Test (QFT) Nil TB Test Mitogen - Nil TB Test Ag - Nil 1 TB Test Ag - Nil 2 Blood Type Blood Type Recheck O Positive Antibody Screen Crossmatch 03/25/20 03/25/20 03/25/20 08:57 10:11 14:13 WBC RBC Hgb 11.4 L POC Hgb Hct 34.3 L POC Hct MCV MCH MCHC RDW Std Deviation RDW Coeff of Luca Plt Count MPV Immature Gran % (Auto) Neut % (Auto) Lymph % (Auto) [place] % (Auto) Eos % (Auto) Baso % (Auto) Neut # (Auto) Lymph # (Auto) [place] # (Auto) Eos # (Auto) Baso # (Auto) Immature Gran # (Auto) Peripher Smr Path Cons PT INR APTT PTT Ratio Fibrinogen POC Sodium Sodium POC Potassium Potassium POC Chloride Chloride Carbon Dioxide POC Total CO2 Anion Gap POC Anion Gap POC BUN BUN Creatinine POC Creatinine Est Cr Clr Drug Dosing Est GFR ( Amer) Est GFR (Non-Af Amer) BUN/Creatinine Ratio Glucose POC Glucose 94 POC Glucose (other) Calcium POC Ioniz Calcium Susan Phosphorus Magnesium Total Bilirubin Direct Bilirubin AST ALT Alkaline Phosphatase Troponin I Total Protein Albumin Globulin Albumin/Globulin Ratio Nasal Screen MRSA (PCR) POC Stool Occult Blood Adenovirus (PCR) B. pertussis DNA (PCR) B.parapertussis DNA PCR C. pneumoniae DNA (PCR) Coronavirus OC43 (PCR) Coronavirus HKU1 (PCR) Coronavirus 229E (PCR) COVID-19 PCR Coronavirus NL63 (PCR) Human Metapneumovir PCR Influenza Type A (PCR) Influenza Type B (PCR) M. pneumoniae (PCR) Parainfluenza 1 (PCR) Parainfluenza 2 (PCR) Parainfluenza 3 (PCR) Parainfluenza 4 (PCR) RSV (PCR) Entero/Rhino (PCR) TB Test (QFT) Gold Plus Pending TB Test (QFT) Nil Pending TB Test Mitogen - Nil Pending TB Test Ag - Nil 1 Pending TB Test Ag - Nil 2 Pending Blood Type Blood Type Recheck Antibody Screen Crossmatch 03/25/20 03/25/20 03/25/20 17:23 19:08 19:08 WBC 7.77 RBC 3.73 L Hgb 12.2 L 11.0 L POC Hgb Hct 37.8 L 32.7 L POC Hct MCV 87.7 MCH 29.5 MCHC 33.6 RDW Std Deviation 43.3 RDW Coeff of Luca 13.4 Plt Count 162 MPV 9.8 Immature Gran % (Auto) 0.1 Neut % (Auto) 76.0 Lymph % (Auto) 14.5 [place] % (Auto) 7.9 Eos % (Auto) 1.2 Baso % (Auto) 0.3 Neut # (Auto) 5.91 Lymph # (Auto) 1.13 L [place] # (Auto) 0.61 H Eos # (Auto) 0.09 Baso # (Auto) 0.02 Immature Gran # (Auto) 0.01 Peripher Smr Path Cons Pending PT 11.4 INR 1.1 APTT 24.3 PTT Ratio 0.9 Fibrinogen 304 POC Sodium Sodium POC Potassium Potassium POC Chloride Chloride Carbon Dioxide POC Total CO2 Anion Gap POC Anion Gap POC BUN BUN Creatinine POC Creatinine Est Cr Clr Drug Dosing Est GFR ( Amer) Est GFR (Non-Af Amer) BUN/Creatinine Ratio Glucose POC Glucose POC Glucose (other) Calcium POC Ioniz Calcium Susan Phosphorus Magnesium Total Bilirubin Direct Bilirubin AST ALT Alkaline Phosphatase Troponin I Total Protein Albumin Globulin Albumin/Globulin Ratio Nasal Screen MRSA (PCR) POC Stool Occult Blood Adenovirus (PCR) B. pertussis DNA (PCR) B.parapertussis DNA PCR C. pneumoniae DNA (PCR) Coronavirus OC43 (PCR) Coronavirus HKU1 (PCR) Coronavirus 229E (PCR) COVID-19 PCR Coronavirus NL63 (PCR) Human Metapneumovir PCR Influenza Type A (PCR) Influenza Type B (PCR) M. pneumoniae (PCR) Parainfluenza 1 (PCR) Parainfluenza 2 (PCR) Parainfluenza 3 (PCR) Parainfluenza 4 (PCR) RSV (PCR) Entero/Rhino (PCR) TB Test (QFT) Gold Plus TB Test (QFT) Nil TB Test Mitogen - Nil TB Test Ag - Nil 1 TB Test Ag - Nil 2 Blood Type Blood Type Recheck Antibody Screen Crossmatch 03/25/20 03/25/20 03/25/20 19:21 Unknown Unknown WBC RBC Hgb POC Hgb Hct POC Hct MCV MCH MCHC RDW Std Deviation RDW Coeff of Luca Plt Count MPV Immature Gran % (Auto) Neut % (Auto) Lymph % (Auto) [place] % (Auto) Eos % (Auto) Baso % (Auto) Neut # (Auto) Lymph # (Auto) [place] # (Auto) Eos # (Auto) Baso # (Auto) Immature Gran # (Auto) Peripher Smr Path Cons PT INR APTT PTT Ratio Fibrinogen POC Sodium Sodium POC Potassium Potassium POC Chloride Chloride Carbon Dioxide POC Total CO2 Anion Gap POC Anion Gap POC BUN BUN Creatinine POC Creatinine Est Cr Clr Drug Dosing Est GFR ( Amer) Est GFR (Non-Af Amer) BUN/Creatinine Ratio Glucose POC Glucose 144 H POC Glucose (other) Calcium POC Ioniz Calcium Susan Phosphorus Magnesium Total Bilirubin Direct Bilirubin AST ALT Alkaline Phosphatase Troponin I Total Protein Albumin Globulin Albumin/Globulin Ratio Nasal Screen MRSA (PCR) POC Stool Occult Blood Negative Adenovirus (PCR) Not Detected B. pertussis DNA (PCR) Not Detected B.parapertussis DNA PCR Not Detected C. pneumoniae DNA (PCR) Not Detected Coronavirus OC43 (PCR) Not Detected Coronavirus HKU1 (PCR) Not Detected Coronavirus 229E (PCR) Not Detected COVID-19 PCR Not Detected Coronavirus NL63 (PCR) Not Detected Human Metapneumovir PCR Not Detected Influenza Type A (PCR) Not Detected Influenza Type B (PCR) Not Detected M. pneumoniae (PCR) Not Detected Parainfluenza 1 (PCR) Not Detected Parainfluenza 2 (PCR) Not Detected Parainfluenza 3 (PCR) Not Detected Parainfluenza 4 (PCR) Not Detected RSV (PCR) Not Detected Entero/Rhino (PCR) Not Detected TB Test (QFT) Gold Plus TB Test (QFT) Nil TB Test Mitogen - Nil TB Test Ag - Nil 1 TB Test Ag - Nil 2 Blood Type Blood Type Recheck Antibody Screen Crossmatch PG Care Time/CCT Total # of Minutes Spent Total Time Spent with Patient: Total time spent is greater than 50% in coordination of care (as documented) at patient's floor/unit and/or counseling patient: Coding Level of Care Code None Diagnoses Acute respiratory failure with hypoxia J96.01 Pneumonia J18.9 Hemoptysis R04.2 Hematuria R31.9 GERD (gastroesophageal reflux disease) K21.9 Hyperlipidemia E78.5 Depression F32.9 HTN (hypertension) I10 History of stroke Z86.73
[2020-03-25 19:44] LABS: Fibrinogen 304 mg/dl (184-400); INR 1.1 (0.9-1.1); Partial Thromboplastin Ratio 0.9; Partial Thromboplastin Time 24.3 Seconds (21.0-31.0); Prothrombin Time 11.4 Seconds (9.0-12.0)
--- NOTE | 2020-03-25 22:22 | Electrocardiogram Report ---
Test Reason : Blood Pressure : / mmHG Vent. Rate : 078 BPM Atrial Rate : 078 BPM P-R Int : 176 ms QRS Dur : 136 ms QT Int : 416 ms P-R-T Axes : 014 056 -05 degrees QTc Int : 474 ms Normal sinus rhythm Non-specific intra-ventricular conduction block Nonspecific T wave abnormality Abnormal ECG When compared with ECG of 01-DEC-2019 10:55, QRS duration has increased Nonspecific T wave abnormality now evident in Anterior leads QT has lengthened Confirmed by Nathan Allison ([id number]) on 03/25/2020 10:22:19 PM Referred By: REFERRED SELF Confirmed By:Nathan Allison
[2020-03-28 14:05] LABS: Quantiferon Mitogen-NIL 8.69 IU/mL; Quantiferon NIL 0.05 IU/mL; Quantiferon TB Gold Plus NEGATIVE (NEGATIVE); Quantiferon TB1-NIL <0.00 IU/mL; Quantiferon TB2-NIL 0.01 IU/mL
== END 2020-03-25 21:00 | disposition short-term general hospital (02) | DRG 177 ==
LOC: ED 22:59 → SUATTDRO 03-25 01:09 → 1E 03-25 01:09
DX: R04.2 Hemoptysis; Z79.899 Other long term (current) drug therapy; K21.9 Gastro-esophageal reflux disease without esophagitis; E78.5 Hyperlipidemia, unspecified; J69.0 Pneumonitis due to inhalation of food and vomit; R31.9 Hematuria, unspecified; Z79.02 Long term (current) use of antithrombotics/antiplatelets; F32.9 Major depressive disorder, single episode, unspecified; J96.01 Acute respiratory failure with hypoxia; I10 Essential (primary) hypertension

== ENCOUNTER 2022-06-19 07:53 | Inpatient (IN) ==
--- NOTE | 2022-06-19 09:02 | XRay Report ---
XR hip RT 2V w pelvis HISTORY: 82 years-old Male right hip pain . Subacute pain of the pelvis and right hip COMPARISON: CT abdomen and pelvis 09/23/2018 TECHNIQUE: AP view of the pelvis with 2 views of the right hip FINDINGS: Partially imaged and changes of the lower lumbar spine. 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 No acute fracture, dislocation or avascular necrosis. Arterial calcifications. Pel benigno basin phleboliths. IMPRESSION: No acute fracture or dislocation. ACT 112: Negative or not required by law. The above report was generated using voice recognition software. It may contain grammatical, syntax o r spelling errors. Electronically signed by: Maverick Tavarez M.D. 06/19/2022 8:59 AM
--- NOTE | 2022-06-19 09:30 | Emergency Department Note ---
History of Present Illness General Chief complaint: Hip Pain Stated complaint: RIGHT HIP PAIN Time Seen by Provider: 06/19/22 09:13 History of Present Illness Maximum Pain Intensity: 9 This is an 82-year-old male that presents to the emergency department via private vehicle accompanied by with complaints of "right hip pain, getting worse". The patient notes over the past 1.5 weeks he has had discomfort to the right hip (pointing to the: right posterior lateral gluteal region) that radiates into his right leg at times to the right knee. No known trauma or injury. No fevers or chills. No history of L-spine surgery. No lower extremity weakness, bowel or bladder incontinence, numbness or tingling in genital region. Current pain 9/10. He has been taking ibuprofen 2 tablets 3 times daily for the past week with minimal relief. He is also been trying Salonpas patches. Home Medications Medication Instructions Recorded Confirmed Type losartan 50 mg tablet 50 mg PO BIDM 09/23/18 01/29/22 History amlodipine 5 mg tablet 5 mg PO PM 12/01/19 01/29/22 History [id number] acid 0.4 1 tab PO QAM 02/10/20 01/29/22 History mg-lycopene 300 mcg-lutein 250 mcg tablet (Centrum Silver) pantoprazole 20 mg tablet,delayed 20 mg PO BID 02/10/20 01/29/22 History release atorvastatin 40 mg tablet (Lipitor) 40 mg PO PM 03/23/20 01/29/22 History clopidogrel 75 mg tablet (Plavix) 75 mg PO PM 03/23/20 01/29/22 History terazosin 1 mg tablet 1 mg PO HS 02/16/21 01/29/22 History Allergies Allergy/AdvReac Type Severity Reaction Status Date / Time lisinopril AdvReac Mild cough Verified 01/29/22 07:43 Past Med/Surg History Medical History GERD (gastroesophageal reflux disease) History of aspiration pneumonia 03/25/20 s/p treatment/cleared by pulmonary History of kidney stones HTN (hypertension) Hx of diverticulitis of colon Hyperlipidemia Rupture of colon 2005 s/p colon resection Stroke 11/2019- no residual effects, on plavix, evaluated by neurology (Dr. Ruiz) Surgical History H/O left knee surgery arthroscopic H/O right knee surgery arthroscopic History of carpal tunnel surgery of left wrist History of colonoscopy History of colostomy REVERSED 2006 History of cystoscopy History of esophagogastroduodenoscopy (EGD) History of surgical removal of pilonidal cyst Family History Mother Colorectal cancer Father Respiratory care problem Other No family history of adverse response to anesthesia Social History Smoking Status: Never smoker Second Hand Exposure: No; Hx Alcohol Use: No Hx Substance Use: No Preferred Language: [place] Communication Ability: Effective Manager Technical Required: No Beliefs That Will Affect Care: None marital status: Current Living Situation: Spouse Feels Safe at Home: Yes Assistive Devices: Glasses and Hearing Aid - Bilateral Review of Systems A total of 10 systems reviewed and were otherwise negative Physical Exam Vital Signs Vital Signs - 24 hr 06/19/22 07:55 06/19/22 11:38 Temperature 36.8 C Temperature Source Temporal Artery Scan Pulse Rate 75 Pulse Rate [Apical] 68 Pulse Rhythm [Apical] Regular Respiratory Rate 20 18 Respiratory Effort / Characteristics Non-Labored Spontaneous Non-Labored Spontaneous Respiratory Depth Normal Normal Respiratory Pattern Regular Regular Blood Pressure 141/82 H Blood Pressure [Left Arm] 177/90 H Blood Pressure Mean 101 Blood Pressure Mean [Left Arm] 119 Pulse Oximetry 95 96 Oxygen Delivery Method Room Air Room Air Sepsis Recent Fever Within 48 Hours No Sepsis New/Unexplained Change in Mental Status No Sepsis Action Taken by Nursing No Action Required VITAL SIGNS - Vital signs and nursing notes were reviewed stable and afebrile. GENERAL - 82-year-old male appearing his stated age who is in no acute distress. Communicates well with provider and answers questions appropriately. SKIN - Without rashes. No meningeal or petechial rash. HEAD - NC/AT. EYES - PERRL with EOMI bilaterally. Sclera anicteric. EARS - No deformities of external structures noted on gross examination bilaterally. NOSE - Midline and without cyanosis. No epistaxis or purulent drainage noted. MOUTH/OROPHARYNX - Without perioral cyanosis. NECK - Neck with FROM. No nuchal rigidity. LUNGS - Chest wall symmetric without accessory muscle use, intercostals retractions, or central cyanosis. Normal vesicular breath sounds CTA B/L. No wheezes, rales, or rhonchi appreciated. CARDIAC - RRR with S1/S2. No murmur, rubs, or gallops appreciated. ABDOMEN - Abdominal contour normal without pulsations or visible masses. BS normoactive all four quadrants. No tenderness, palpable masses, hepato splenomegaly, or ascites noted. EXTREMITIES - No clubbing or peripheral cyanosis. No pretibial edema present. +5/5 strength noted in UE/LE bilaterally. NEUROLOGIC - Cranial nerves II through XII grossly intact. PSYCH - A&O, and cooperates fully with examiner. Pt is very pleasant and interacts well with examiner. Medical Decision Making Laboratory Data Result diagrams: 06/19/22 11:06/19/22 11: Lab Results 06/19/22 06/19/22 06/19/22 Range/Units 11:26 11:26 11:26 WBC 7.62 (4.8-10.8) K/ul RBC 4.81 (4.63-6.08) M/uL Hgb 14.2 (14.0-18.0) g/dl Hct 42.2 (40.1-51.0) % MCV 87.7 (80.0-100.0) fL MCH 29.5 (25.0-34.0) pg MCHC 33.6 (32.0-36.0) g/dL RDW Std Deviation 40.2 (36.4-46.3) fL RDW Coeff of Luca 12.5 (11.5-14.5) % Plt Count 203 (130-400) K/uL MPV 10.0 (9.4-12.4) fL Immature Gran % (Auto) 0.3 % Neut % (Auto) 65.9 % Lymph % (Auto) 21.0 % [place] % (Auto) 8.1 % Eos % (Auto) 3.7 % Baso % (Auto) 1.0 % Neut # (Auto) 5.02 (1.4-6.5) K/uL Lymph # (Auto) 1.60 (1.2-3.4) K/uL [place] # (Auto) 0.62 (0.24-0.82) K/uL Eos # (Auto) 0.28 (0-0.50) K/uL Baso # (Auto) 0.08 (0-0.2) K/uL Immature Gran # (Auto) 0.02 (0.00-0.02) K/uL PT 10.6 (9.0-12.0) Seconds INR 1.0 (0.9-1.1) APTT 24.9 (21.0-31.0) Seconds PTT Ratio 0.9 Sodium 141 (136-145) mmol/L Potassium 4.2 (3.5-5.1) mmol/L Chloride 108 H (98-107) mmol/L Carbon Dioxide 26 (21-32) mmol/L Anion Gap 7 (3-11) BUN 19 (6-23) mg/dl Creatinine 1.15 (0.6-1.4) mg/dl Est Cr Clr Drug Dosing 52.7 ml/min Est GFR ( Amer) 67.4 ml/min Est GFR (Non-Af Amer) 58.1 ml/min BUN/Creatinine Ratio 16.5 (10-20) Glucose 105 H (70-99(Fasting)) mg/dl Calcium 10.5 H (8.5-10.1) mg/dl Total Bilirubin 0.7 (0.2-1.0) mg/dl AST 18 (13-39) U/L ALT 18 (7-52) U/L Alkaline Phosphatase 76 (34-104) U/L Total Protein 7.3 (6.0-8.3) gm/dl Albumin 4.7 (3.4-5.0) gm/dl Globulin 2.6 (2.5-4.0) gm/dl Albumin/Globulin Ratio 1.8 (0.9-2) SARS-CoV-2, RNA, NAAT (NEGATIVE) 06/19/22 Range/Units 11:40 WBC (4.8-10.8) K/ul RBC (4.63-6.08) M/uL Hgb (14.0-18.0) g/dl Hct (40.1-51.0) % MCV (80.0-100.0) fL MCH (25.0-34.0) pg MCHC (32.0-36.0) g/dL RDW Std Deviation (36.4-46.3) fL RDW Coeff of Luca (11.5-14.5) % Plt Count (130-400) K/uL MPV (9.4-12.4) fL Immature Gran % (Auto) % Neut % (Auto) % Lymph % (Auto) % [place] % (Auto) % Eos % (Auto) % Baso % (Auto) % Neut # (Auto) (1.4-6.5) K/uL Lymph # (Auto) (1.2-3.4) K/uL [place] # (Auto) (0.24-0.82) K/uL Eos # (Auto) (0-0.50) K/uL Baso # (Auto) (0-0.2) K/uL Immature Gran # (Auto) (0.00-0.02) K/uL PT (9.0-12.0) Seconds INR (0.9-1.1) APTT (21.0-31.0) Seconds PTT Ratio Sodium (136-145) mmol/L Potassium (3.5-5.1) mmol/L Chloride (98-107) mmol/L Carbon Dioxide (21-32) mmol/L Anion Gap (3-11) BUN (6-23) mg/dl Creatinine (0.6-1.4) mg/dl Est Cr Clr Drug Dosing ml/min Est GFR ( Amer) ml/min Est GFR (Non-Af Amer) ml/min BUN/Creatinine Ratio (10-20) Glucose (70-99(Fasting)) mg/dl Calcium (8.5-10.1) mg/dl Total Bilirubin (0.2-1.0) mg/dl AST (13-39) U/L ALT (7-52) U/L Alkaline Phosphatase (34-104) U/L Total Protein (6.0-8.3) gm/dl Albumin (3.4-5.0) gm/dl Globulin (2.5-4.0) gm/dl Albumin/Globulin Ratio (0.9-2) SARS-CoV-2, RNA, NAAT NEGATIVE (NEGATIVE) Imaging Data Radiologist's Impression: Hip/Pelvis X-Ray 06/19/22 08:03 XR hip RT 2V w pelvis HISTORY: 82 years-old Male right hip pain . Subacute pain of the pelvis and right hip COMPARISON: CT abdomen and pelvis 09/23/2018 TECHNIQUE: AP view of the pelvis with 2 views of the right hip FINDINGS: Partially imaged and changes of the lower lumbar spine. 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 No acute fracture, dislocation or avascular necrosis. Arterial calcifications. Pelvic basin phleboliths. IMPRESSION: No acute fracture or dislocation. ACT 112: Negative or not required by law. The above report was generated using voice recognition software. It may contain grammatical, syntax or spelling errors. Electronically signed by: Maverick Tavarez M.D. 06/19/2022 8:[address] 06/19/22 09:23 CT hip RT wo con HISTORY: 82 years-old Male R gluteal region pain radiating to r leg acute pain of the right hip and lower back COMPARISON: CT lumbar spine of same day, CT abdomen and pelvis 09/23/2018 TECHNIQUE: Multiple axial CT images of the right hip were obtained without the use of IV contrast. A dose lowering technique was used consistent with the principals of TU. FINDINGS: Distended urinary bladder with prostamegaly. Moderate rectosigmoid fecal retention. Postoperative changes of the sigmoid colon. No acute intrapelvic abnormality identified. Arterial calcifications. Thickening with dystrophic calcifications of the proximal hamstring suggestive of tendinosis. There is subcutaneous edema within the right infragluteal tissues which is partially imaged. No fluid collection. Mild greater trochanteric and trace iliopsoas bursitis. Mild to moderate osteoarthritis of the right hip without acute fracture, disl ocation or avascular necrosis. Moderate degeneration of the pubic symphysis. The imaged pelvic ring appears intact. IMPRESSION: 1. No acute fracture or dislocation identified. 2. Mild greater trochanteric with trace iliopsoas bursitis. 3. Nonspecific subcutaneous edema within the right inferior gluteal tissues. 4. Prostamegaly with suggested chronic bladder outlet obstruction. ACT 112: Negative or not required by law. The above report was generated using voice recognition software. It may contain grammatical, syntax or spelling errors. Electronically signed by: Maverick Tavarez M.D. 06/19/2022 10:[address] 06/19/22 09:[address] WITHOUT CONTRAST CLINICAL HISTORY: Right gluteal region pain radiating to right leg. COMPARISON STUDY: CT of the abdomen and pelvis September 23, 2018. TECHNIQUE: Axial images of the lumbar spine were obtained without IV contrast. Sagittal and coronal reconstructions were viewed. Automated exposure control was utilized for the study. A dose lowering technique was utilized adhering to the principles of ALARA. FINDINGS: For purposes of numbering on this exam, the L5-S1 disc space is assigned to axial image 318 of 379. Mild dextroscoliosis of the lumbar spine is noted. There is 1.1 cm of anterolisthesis of L5 on S1 due to bilateral L5 pars defects. This has mildly increased since abdominal CT of September 23, 2018. There is an acute appearing nondisplaced fracture through the right pedicle of L5. No additional acute fractures are identified on this examination. Vertebral body heights are maintained. Moderate multilevel degenerative changes are present. The central canal and neural foramen are suboptimally assessed given CT technique. Vertebral soft tissues are unremarkable. IMPRESSION: 1. Acute nondisplaced fracture through the right pedicle of L5. 2. Grade II anterolisthesis of L5 on S1 which has mildly increased since CT of September 23, 2018. This is due to bilateral L5 pars defects. 3. Moderate multilevel degenerative changes within the lumbar spine. ACT 112: Negative or not required by law. Electronically signed by: Valdemar Evans M.D. 06/19/2022 10:20 AM MDM Narrative Patient was seen and evaluated initially as above in the ED waiting room noting period of volume in the emergency department. Review was performed of nursing notes and vital signs. I did review pertinent previous visits and patient history. After obtaining a thorough history and physical examination the above work up was performed. Patient already underwent x-ray of the hip. I reviewed this. Options of care were discussed with the patient. CT imaging of the L-spine was obtained as well as the right hip region noting location of discomfort. His presentation is most likely consistent with that of lumbar radiculopathy. No history of spine surgery. No infectious symptoms. No evidence of cauda equina syndrome. CT scans resulted of the L-spine and unfortunately do reveal an acute nondisplaced L5 pedicle fracture. I discussed this finding with the on-call environmental programs specialist, Dr. Ackerman. At this time recommendation is to proceed with admission, he will be consulted, MRI of the L-spine with and without contrast for further evaluation and management. I reviewed this with the patient and . Patient provided CT report findings of both the hip and L-spine via printed copy. Case discussed with the hospitalist service, Dr. Quick. Please refer to further documentation regarding his stay. Labs reveal no leukocytosis or concerning anemia. No emergent metabolic disturbance. COVID testing negative. Case was discussed with the attending physician. GCS: 15 In the evaluation and treatment of this patient the following differential diagnoses were entertained: Fracture, dislocation, subluxation, contusion, cord injury, cauda equina syndrome, AAA, sprain, strain, among others Impression & Plan Closed fracture of pedicle of lumbar vertebra, Acute right lumbar radiculopathy Discharge Plan Visit Data Chief Complaint: Hip Pain Stated Complaint: RIGHT HIP PAIN ED Provider: Ivan Tucker ED Midlevel Provider: Tom Valencia Discharge Problem: Closed fracture of pedicle of lumbar vertebra, Acute right lumbar radiculopathy Patient Disposition: Admitted As Inpatient Condition: Good Forms Stand Alone Forms: [facility] [employer] Prescriptions Prescriptions: No Action pantoprazole 20 mg tablet,delayed release (DR/EC) 20 mg PO BID Centrum Silver 0.4-300-250 mg-mcg-mcg tablet 1 tab PO QAM losartan 50 mg Tablet 50 mg PO BIDM amlodipine 5 mg tablet 5 mg PO PM atorvastatin [Lipitor] 40 mg tablet 40 mg PO PM clopidogrel [Plavix] 75 mg tablet 75 mg PO PM Label Comments: ON HOLD UNTIL AFTER SURGERY terazosin 1 mg Tablet 1 mg PO HS Referrals Referrals: Jil Hoang MD [Primary Care Provider] -
--- NOTE | 2022-06-19 10:04 | CT Scan Report ---
CT hip RT wo con HISTORY: 82 years-old Male R gluteal region pain radiating to r leg acute pain of the right hip and lower back COMPARISON: CT lumbar spine of same day, CT abdomen and pelvis 09/23/2018 TECHNIQUE: Multiple axial CT images of the right hip were obtained without the use of IV contrast. A dose lowering technique was used consistent with the principals of TU. FINDINGS: Distended urinary bladder with prostamegaly. Moderate rectosigmoid fecal retention. Postoperative little nges of the sigmoid colon. No acute intrapelvic abnormality identified. Arterial calcifications. Thic kening with dystrophic calcifications of the proximal hamstring suggestive of tendinosis. There is cohen bcutaneous edema within the right infragluteal tissues which is partially imaged. No fluid collection . Mild greater trochanteric and trace iliopsoas bursitis. Mild to moderate osteoarthritis of the right hip without acute fracture, dislocation or avascular nec rosis. Moderate degeneration of the pubic symphysis. The imaged pelvic ring appears intact. IMPRESSION: 1. No acute fracture or dislocation identified. 2. Mild greater trochanteric with trace iliopsoas bursitis. 3. Nonspecific subcutaneous edema within the right inferior gluteal tissues. 4. Prostamegaly with suggested chronic bladder outlet obstruction. ACT 112: Negative or not required by law. The above report was generated using voice recognition software. It may contain grammatical, syntax o r spelling errors. Electronically signed by: Maverick Tavarez M.D. 06/19/2022 10:02 AM
--- NOTE | 2022-06-19 10:22 | CT Scan Report ---
LUMBAR SPINE CT WITHOUT CONTRAST CLINICAL HISTORY: Right gluteal region pain radiating to right leg. COMPARISON STUDY: CT of the abdomen and pelvis September 23, 2018. TECHNIQUE: Axial images of the lumbar spine were obtained without IV contrast. Sagittal and coronal r econstructions were viewed. Automated exposure control was utilized for the study. A dose lowering t echnique was utilized adhering to the principles of ALARA. FINDINGS: For purposes of numbering on this exam, the L5-S1 disc space is assigned to axial image 318 of 379. Mild dextroscoliosis of the lumbar spine is noted. There is 1.1 cm of anterolisthesis of L5 on S1 due to bilateral L5 pars defects. This has mildly increased since abdominal CT of September 23, 2018 . There is an acute appearing nondisplaced fracture through the right pedicle of L5. No additional ac em fractures are identified on this examination. Vertebral body heights are maintained. Moderate mul tilevel degenerative changes are present. The central canal and neural foramen are suboptimally asses sed given CT technique. Vertebral soft tissues are unremarkable. IMPRESSION: 1. Acute nondisplaced fracture through the right pedicle of L5. 2. Grade II anterolisthesis of L5 on S1 which has mildly increased since CT of September 23, 2018. This is due to bilateral L5 pars defects. 3. Moderate multilevel degenerative changes within the lumbar spine. ACT 112: Negative or not required by law. Electronically signed by: Valdemar Evans M.D. 06/19/2022 10:20 AM
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
[2022-06-19 11:47] LABS: Basophils # (auto) 0.08 K/uL (0-0.2); Eosinophils # (auto) 0.28 K/uL (0-0.50); Eosinophils % (auto) 3.7 %; Hematocrit (blood only) 42.2 % (40.1-51.0); Hemoglobin 14.2 g/dl (14.0-18.0); Immature Granulocytes # (auto) 0.02 K/uL (0.00-0.02); Immature Granulocytes % (auto) 0.3 %; Mean Corpuscular Hemoglobin 29.5 pg (25.0-34.0); Mean Corpuscular Hgb Conc 33.6 g/dL (32.0-36.0); Mean Corpuscular Volume 87.7 fL (80.0-100.0); Monocytes # (auto) 0.62 K/uL (0.24-0.82); Monocytes % (auto) 8.1 %; Neutrophils # (auto) 5.02 K/uL (1.4-6.5); Neutrophils % (auto) 65.9 %; Platelet Count 203 K/uL (130-400); RDW Coefficient of Variation 12.5 % (11.5-14.5); RDW Standard Deviation 40.2 fL (36.4-46.3); Red Blood Count 4.81 M/uL (4.63-6.08); White Blood Count 7.62 K/ul (4.8-10.8)
[2022-06-19 11:57] LABS: Partial Thromboplastin Ratio 0.9; Partial Thromboplastin Time 24.9 Seconds (21.0-31.0); Prothrombin Time 10.6 Seconds (9.0-12.0)
[2022-06-19 12:09] LABS: Albumin Globulin Ratio 1.8 (0.9-2); Albumin Level 4.7 gm/dl (3.4-5.0); BUN Creatinine Ratio 16.5 (10-20); Bilirubin,Total 0.7 mg/dl (0.2-1.0); Calcium 10.5 mg/dl (8.5-10.1); Creatinine Clr Calc Pharmacy 52.7 ml/min; Est GFR (African American) 67.4 ml/min; Est GFR (Non-African American) 58.1 ml/min; Globulin 2.6 gm/dl (2.5-4.0); Potassium 4.2 mmol/L (3.5-5.1); Total Protein 7.3 gm/dl (6.0-8.3)
[2022-06-19] MEDS ORDERED: GADOBUTROL 65ML VIAL IV ONE (13:09)
--- NOTE | 2022-06-19 13:45 | Magnetic Resonance Report ---
MR lumbar spine wo/w con CLINICAL HISTORY: L5 pedicle fx, numbness, pain TECHNIQUE: 3 plane localizer images, sagittal T2, sagittal T1, sagittal STIR, axial T1, axial T2 venu g with postcontrast axial T1 and sagittal T1 fat-saturated sequences were obtained of the lumbar spin e, before and after intravenous administration of 12 mL of MultiHance. Comparison: Comparison is made to CT lumbar spine 06/19/2022 FINDINGS: There is grade 2 anterolisthesis of L5-S1 secondary to pars defects bilaterally. There is an acute fr acture through the right pedicle of L5 is better seen on CT. L1-L2: No significant abnormality. L2-L3: Broad-based posterior disc bulge is seen without significant canal or neuroforaminal stenosis. L3-L4: Broad-based posterior disc bulge is seen with moderate bilateral neuroforaminal stenosis and n o significant canal stenosis. L4-L5: There is a broad base posterior disc bulge with moderate to severe bilateral neural foraminal stenosis. No significant canal stenosis. L5-S1: Anterolisthesis and a broad base posterior disc bulge is seen with severe bilateral neuroforam inal stenosis. The spinal ligaments are intact, without evidence of disruption or abnormal signal intensity. The spi nal cord is normal in signal intensity and there is no evidence of cord contusion. There is no eviden ce of an extradural, intradural, extramedullary or intramedullary lesion. Partial visualization of a large left renal cyst. IMPRESSION: Multilevel degenerative changes. There is severe bilateral neural foraminal stenosis at L4-L5 and L5- S1. Evaluation of right L5 pedicle fracture is limited, better evaluated by CT. ACT 112: Negative or not required by law. Electronically signed by: Christ Guzmán M.D. 06/19/2022 1:43 PM
[2022-06-19] MEDS ORDERED: LACTATED RINGER'S 1,000 ML IV SCH (14:02)
--- NOTE | 2022-06-19 14:35 | XCELERA ---
[id number]
[2022-06-19] MEDS: ACETAMINOPHEN 325 MG TAB PO PRN ×2 (16:09→20:49)
[2022-06-19] MEDS ORDERED: MoRPHine SULFATE 2 MG/ML CARP IV PRN ×2 (16:38)
[2022-06-19] MEDS ORDERED: amLODIPine BESYLATE 5 MG TAB PO STA (16:53)
[2022-06-19] MEDS: LOSARTAN POTASSIUM 50 MG TAB PO SCH (17:07)
--- NOTE | 2022-06-19 17:13 | Electrocardiogram Report ---
Test Reason : Blood Pressure : / mmHG Vent. Rate : 061 BPM Atrial Rate : 061 BPM P-R Int : 208 ms QRS Dur : 118 ms QT Int : 430 ms P-R-T Axes : 038 059 012 degrees QTc Int : 432 ms Normal sinus rhythm Incomplete right bundle branch block Borderline ECG When compared with ECG of 24-MAR-2020 23:17, QRS duration has decreased Confirmed by Chris Hill ([id number]) on 06/19/2022 5:13:10 PM Referred By: Jil Hoang Confirmed By:Nirmal Hill
[2022-06-19] MEDS: PANTOprazole 40 MG TAB PO SCH (20:49)
[2022-06-19] MEDS ORDERED: TERAZOSIN HCL 1 MG CAP PO SCH (21:00)
[2022-06-19] MEDS ORDERED: ATORVASTATIN 40 MG TAB PO SCH (21:00)
[2022-06-19] MEDS ORDERED: amLODIPine BESYLATE 5 MG TAB PO SCH (21:00)
[2022-06-20] MEDS: ACETAMINOPHEN 325 MG TAB PO PRN ×3 (02:26→13:00)
[2022-06-20 04:48] LABS: Basophils # (auto) 0.05 K/uL (0-0.2); Basophils % (auto) 0.7 %; Eosinophils # (auto) 0.29 K/uL (0-0.50); Hematocrit (blood only) 36.3 % (40.1-51.0); Hemoglobin 12.2 g/dl (14.0-18.0); Immature Granulocytes # (auto) 0.01 K/uL (0.00-0.02); Immature Granulocytes % (auto) 0.1 %; Lymphocytes # (auto) 1.63 K/uL (1.2-3.4); Lymphocytes % (auto) 22.7 %; Mean Corpuscular Hemoglobin 29.3 pg (25.0-34.0); Mean Corpuscular Hgb Conc 33.6 g/dL (32.0-36.0); Mean Corpuscular Volume 87.3 fL (80.0-100.0); Monocytes # (auto) 0.71 K/uL (0.24-0.82); Monocytes % (auto) 9.9 %; Neutrophils # (auto) 4.49 K/uL (1.4-6.5); Neutrophils % (auto) 62.6 %; Platelet Count 185 K/uL (130-400); RDW Coefficient of Variation 12.5 % (11.5-14.5); RDW Standard Deviation 40.1 fL (36.4-46.3); Red Blood Count 4.16 M/uL (4.63-6.08); White Blood Count 7.18 K/ul (4.8-10.8)
[2022-06-20 05:17] LABS: BUN Creatinine Ratio 17.1 (10-20); Calcium 9.7 mg/dl (8.5-10.1); Creatinine Clr Calc Pharmacy 49.3 ml/min; Est GFR (African American) 62.1 ml/min; Est GFR (Non-African American) 53.6 ml/min; Potassium 4.4 mmol/L (3.5-5.1)
[2022-06-20] MEDS: PANTOprazole 40 MG TAB PO SCH (08:45)
[2022-06-20] MEDS: LOSARTAN POTASSIUM 50 MG TAB PO SCH ×2 (08:46→08:51)
[2022-06-20] MEDS ORDERED: SODIUM CHLORIDE 0.9% 1000ML 1,000 ML IV SCH (12:15)
--- NOTE | 2022-06-20 15:08 | Orthopedic Consultation ---
Date of Consultation June 20, 2022 Assessment & Plan (1) Closed fracture of pedicle of lumbar vertebra: Assessment lumbar spinal stenosis with spondylolisthesis and a fractured right L5 pedicle with radiculopathy. Plan at this time at length discussion today with the patient and his family reviewing his imaging and clinical presentation. It is my recommendation that he is consider possible surgical stabilization. He would require most likely a lumbar decompression and fusion L4-L5 L5-S1. He is neurologically stable at this time. He has arranged for an appointment on Saturday with a neurosurgeon at [place]. This is completely reasonable. He is to go home and undergo very light activity no repetitive bending lifting or twisting until his appointment with his surgeon. He understands if there is any change or marked plan status he can return the emergency room we are here to help. History of Present Illness Reason for Consultation: Back and right leg pain Attending Physician: Teresa Landon MD History of Present Illness This is a 82-year-old male who presents with worsening back pain rating into the right buttock and posterior thigh to his knee. Is exacerbated with standing. He states walking is relatively tolerable but limited. It does not bother him when sitting or lying supine. He is a very active individual managing his home as well as cutting wood and an outdoor wood furnace. He denies any specific trauma fall or events but does state he had a slip or a week ago or so that may have precipitated his complaints. Left lower extremity is asymptomatic. He has no active numbness or tingling down his leg during our discussion. Allergies Allergy/AdvReac Type Severity Reaction Status Date / Time lisinopril AdvReac Mild cough Verified 01/29/22 07:43 Home Medications Medication Instructions Recorded Confirmed Type losartan 50 mg tablet 50 mg PO BIDM 09/23/18 01/29/22 History amlodipine 5 mg tablet 5 mg PO PM 12/01/19 01/29/22 History uqttlsms-hxi-vvxdg acid 0.4 1 tab PO QAM 02/10/20 01/29/22 History mg-lycopene 300 mcg-lutein 250 mcg tablet (Centrum Silver) pantoprazole 20 mg tablet,delayed 20 mg PO BID 02/10/20 01/29/22 History release atorvastatin 40 mg tablet (Lipitor) 40 mg PO PM 03/23/20 01/29/22 History clopidogrel 75 mg tablet (Plavix) 75 mg PO PM 03/23/20 01/29/22 History terazosin 1 mg tablet 1 mg PO HS 02/16/21 01/29/22 History Patient History Medical History GERD (gastroesophageal reflux disease) History of aspiration pneumonia 03/25/20 s/p treatment/cleared by pulmonary History of kidney stones HTN (hypertension) Hx of diverticulitis of colon Hyperlipidemia Rupture of colon 2005 s/p colon resection Stroke 11/2019- no residual effects, on plavix, evaluated by neurology (Dr. Ruiz) Surgical History H/O left knee surgery arthroscopic H/O right knee surgery arthroscopic History of carpal tunnel surgery of left wrist History of colonoscopy History of colostomy REVERSED 2005 History of cystoscopy History of esophagogastroduodenoscopy (EGD) History of surgical removal of pilonidal cyst Family History Mother Colorectal cancer Father Respiratory care problem Other No family history of adverse response to anesthesia Social History Smoking Status: Never smoker Second Hand Exposure: No; Hx Alcohol Use: No Hx Substance Use: No Preferred Language: Kiswahili Communication Ability: Effective Distance Education Teacher Required: No Beliefs That Will Affect Care: Buddhist marital status: Current Living Situation: Spouse Feels Safe at Home: Yes Assistive Devices: Glasses and Hearing Aid - Bilateral Physical Exam Physical Exam: Patient is currently sitting in the bed. He exhibits no tension signs with straight leg raising. He has sensory to be symmetric and intact lower extremities. Deep tendon has is diminished. He has +5-5 bilateral plantar flexion dorsiflexion quadriceps. Negative logroll. Results & Data ([facility]) Vital Signs (Past 12 Hours) Vital Signs Pulse Resp BP Pulse Ox O2 Del Method 06/20/22 12:35 64 18 163/74 H 94 Room Air 06/20/22 08:35 71 18 150/84 H 94 Room Air
--- NOTE | 2022-06-20 16:41 | Discharge Summary ---
Date of Service June 20, 2022 Admission HPI Per Admitting Provider Ronak Wagner is a 82-year-old male with a history of right hip pain rating into the right knee shall evaluate in the emergency department due to high patient volume. Patient reported a history of pain in the right hip radiating to the leg suspicious for lumbar radiculopathy. Case was discussed with Dr. Ackerman by ER provider recommended for medical admit, spinal consultation, MRI of L-spine with and without contrast. R gluteal pain running down the back of his leg stops at the R knee. No trauma, no injury. Denies fever/chills. Has started to have numbness down the leg x1-1.5 weeks. Initially seen by PCP and took ibuprofen TID x1 week with salonpas patches. No improvement. Was scheduled to have an echo for incidental EKG finding. Did nto get echo due to severe hip pain and was sent to ER for further eval/management. Case discussed w Dr. Ackerman non-emergent MRI L spine w and w/o and consult given radicular sx. Good exercise tolerance. 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 Daily. 6-8inches, soft, brown. No diarrhea or constipation. No urinary retention or incontinence. History of stroke 1.5 years ago. Was picking daughter up from direct care provider, waiting in car and had a lip droop. MRI Acute small lacunar infarct within the right cerebellar hemisphere as well as 2 additional punctate acute infarcts within the right posterior frontal lobe at the high convexity. Is very active with PT and does many exercises, no residual strength deficits or balance problems. No falls. Takes plavix. Took this morning. Hip pain Last fall was mowing grass in december. No bumps or injuries. No lightheadedness/dizziness/shortness of breath/ Hx ruptured colon. 12 inches colon removed, with ostomy, reversed 2005 after 4 months. Knee surgery without hardware/replacement. Mother w/ colon cancer. No heart problems/SCD. Medical History: Reviewed Medications: Reviewed Surgical History: Reviewed Allergies: Reviewed Social History: No tobacco/etoh. Code Status: Full Code Admission Exam Per Admitting Provider General: A&Ox3. NAD. Cooperative. HEENT: Atraumatic, normocephalic. Pulm: CTAB A&P. -wheezes, -rales, -rhonchi. Symmetrical chest rise. No increased work of breathing. No respiratory distress. Cardiac: RRR, -mrg. Radial pulses intact and symmetrical. Abdominal: Nontender, nondistended, soft. BS present. CRANIAL NERVES: II: Pupils equal and reactive, no relative afferent pupillary defect, no VF cuts III, IV, : EOM intact, no gaze preference or deviation, no nystagmus. V: normal sensation in V1, V2, and V3 segments bilaterally VII: no asymmetry, no nasolabial fold flattening VIII: normal hearing to speech IX, X: normal palatal elevation, no uvular deviation XI: 5/5 head turn and 5/5 shoulder shrug bilaterally XII: midline tongue protrusion MOTOR: RUE: 5/5 Shoulder internal rotation, external rotation, flexion, extension, abduction, adduction 5/5 Elbow flexion/extension, wrist flexion/extension 5/5 recruiter strength, finger flexion/extension, interosseus LUE: 5/5 Shoulder internal rotation, external rotation, flexion, extension, abduction, adduction 5/5 Elbow flexion/extension, wrist flexion/extension 5/5 recruiter strength, finger flexion/extension, interosseus RLE: 5/5 to hip flexion, ankle dorsiflexion/plantarflexion LLE: 5/5 to hip flexion, ankle dorsiflexion/plantarflexion REFLEXES: no clonus SENSORY: Normal to touch in upper and lower extremities without deficit or asymmetry GAIT: Stiff, flexed posture Principal Diagnosis Lumbar spinal stenosis Discharge Exam Constitutional WD/WN, vitals as above Eyes + anicteric sclerae ENMT external ear and nose normal, oropharynx normal Neck trachea midline, no thyromegaly Respiratory normal respiratory effort, lungs clear to auscultation Cardiovascular RRR, no murmur, no edema Musculoskeletal no cyanosis or clubbing, extremities motor strength 5/5 Head/Neck/Chest: normocephalic and head atraumatic No midline tenderness upon palpation of lumbar spine. 5/5 strength with ankle dorsi and plantarflexion b/l. 5/5 strength with hip flexion b/l. Sensation intact and symmetric in L4, L5 and S1 nerve root distributions b/l. Skin no rashes, warm and dry Psychiatric A+Ox3, euthymic affect Discharge Data Allergies Allergy/AdvReac Type Severity Reaction Status Date / Time lisinopril AdvReac Mild cough Verified 01/29/22 07:43 Consultations 06/19/22 10:36 ED Decision to Admit Stat 06/19/22 14:02 Consult Orthopedic Surgery Routine Ordered Studies 06/19/22 09:23 CT hip RT wo con Stat CT lumbar spine wo con Stat 06/19/22 10:34 MR lumbar spine wo/w con Urgent Hospital Course (1) Lumbar spinal stenosis: Plan Patient presented with R low back pain radiating down the R leg of 7-10 days duration. Lumbar spinal stenosis with spondylolisthesis: - A Lumbar spine CT showed the followin. Acute nondisplaced fracture through the right pedicle of L5. 2. Grade II anterolisthesis of L5 on S1 which has mildly increased since CT of September 23, 2018. This is due to bilateral L5 pars defects. 3. Moderate multilevel degenerative changes within the lumbar spine. - A CT of the hip was done as well and showed no acute fracture or dislocation identified. Mild greater trochanteric with trace iliopsoas bursitis. - L-spine MRI with and without contrast was obtained and it showed multilevel degenerative changes with severe bilateral neural foraminal stenosis at L4-L5 and L5-S1. - Ortho-spine surgery was consulted and Dr. Ackerman recommended that he is consider possible surgical stabilization, which would require most likely a lumbar decompression and fusion L4-L5 L5-S1. Since the patient was neurologically intact and already had arranged for an appointment on Saturday with a neurosurgeon at [place], he was discharged home with the restriction to undergo only light physial activity with no repetitive bending lifting or twisting until his appointment with his surgeon. The family has a strong connection with the back surgery at [facility]. - OTC Pain regimen recommend with Tylenol 1000mg TID prn and Advil 400-600mg q6 hours prn. If pain worsens, he can contact his family doctor or return to the ED - As for the L5 pedicle fracture, it seems as though it was related to a mild trauma. Consideration should be given to an outpatient DEXA scan Abnormal EKG Patient was pending a echo morning of admission as follow-up to abnormal EKG. - EKG obtained in hospital showed NSR with an incomplete RBBB. Echo was obtained during his admission, and it was largely normal; EF of 60- 65%, aortic valve sclerosis and mild concentric LVH Left renal cyst - noted incidentally on L spine MRI - when compared to CT of the abdomen in 2019 it appeared unchanged - radiology recommended no further imaging GERD Continue Protonix HLD - Continue statin HTN Amlodipine 10 mg daily, continue Continue losartan 50 mg twice daily LUTS s/p laser prostatectomy Continue terazosin 1 mg nightly - No urinary sx prior to admit Total Time Total Time Spent Total Time Spent (In Minutes): 35 Total Time Includes: Examination of the Patient, Discharge Planning and Communication With Other Providers Discharge Plan Discharge Items Patient Disposition: Home - Self-Care Reason For Visit: LUMBAR RADICULOPATHY, ?EKG ABNORMALITY Discharge Diagnosis: Lumbar Radiculopathy Condition on Discharge: Good Activity: As commented below Activity Comment: light only; limit bending and twisting Non-emergency contact: Primary Care Provider and Surgeon Call non-emergency contact if: your pain is not controlled Follow-up/Referrals: Jil Hoang MD [Primary Care Provider] - Diet: Regular Addtl Attending Provider Instructions: You were admitted to [facility] for back pain that radiated down your right hip. A cat scan revealed a fracture of the 5th lumbar vertebrae. Additional, an MRI of your lumbar spine was done and it showed severe narrowing of your spinal canal. Dr. Modesto Ackerman, a spine surgeon, evaluated you in the hospital. He recommended you pursue a back surgery - however, since you already had a visit arranged with Dr. Vidal at [facility] next week, it is suitable to wait until then to discuss a possible operation. As for pain control, recommend you take 1000mg Tylenol up to every 8 hours - do not exceed 3000mg of Tylenol per day. You may also take Advil 400-600mg every 6 hours as needed for pain. It is safe to use both Advil and Tylenol in the same day - you may even stager doses to optimize your pain control. You may also try applying a heating pad to your back. If you need additional pain control, please contact your family doctor's office. You had an abnormality on your EKG before coming into the hospital - we did an echocardiogram, or ultrasound of your heart while you were in the hospital, and it was largley normal. Pending Studies at Discharge: No Stand-Alone Forms: My [facility], Smoking Cessation Medications and DC Order Prescriptions: Continued pantoprazole 20 mg tablet,delayed release (DR/EC) 20 mg PO BID Centrum Silver 0.4-300-250 mg-mcg-mcg tablet 1 tab PO QAM losartan 50 mg Tablet 50 mg PO BIDM amlodipine 5 mg tablet 5 mg PO PM atorvastatin [Lipitor] 40 mg tablet 40 mg PO PM clopidogrel [Plavix] 75 mg tablet 75 mg PO PM Label Comments: ON HOLD UNTIL AFTER SURGERY terazosin 1 mg Tablet 1 mg PO HS Discharge Orders: Discharge Order (Routine); Ordered 06/20/22 Ordered By: Teresa Stovall/Other Patient Handouts: Broken Neck or Spine Admission Data Admit Date/Time: 06/19/22 11:48 Attending Provider: Teresa Landon Admit Provider: Сергей Quick Primary Care Provider: Jil Hoang Other Providers: Сергей Quick ; Kendrick Ackerman Coding Level of Care Code D/C DAY MANAGEMENT >30 MINS Diagnoses Lumbar spinal stenosis M48.061
== END 2022-06-20 16:02 | disposition home or self-care (01) | DRG 552 ==
LOC: ED 07:53 → EDINP 11:48 → SUATTDRO 11:48 → EDINP 14:03

== ENCOUNTER 2023-06-01 07:40 | Inpatient (IN) ==
--- OUTSIDE RECORDS SUMMARY | 2023-06-01 07:45 | External Medical Summary | Continuity of Care Document ---
Author Name Unknown Organization [facility] [address] Address [address] [place], [place] [id number] Care Team Providers Care Bulk Filler Name Role Phone Jil Hoang Primary Care Physician [phone] [id number] Date(s): 01/03/23 - 01/03/23 [facility] [address], [address] [place] [address] [phone] Encounter Diagnosis Benign essential HTN(Discharge Diagnosis) - 01/03/23 Chest pain(Discharge Diagnosis) - 01/03/23 Discharge Disposition: Home or Self Care Attending Physician: DO Sexton Jason D Referring Physician: DO Sexton Jason D Allergies, Adverse Reactions, Alerts Substance Reaction Severity Status lisinopril cough Active Assessment and Plan Extracted from: Title:Cardiology Office Visit Note Author:DO Sexton Jason D Date:01/03/23 1.Benign essential HTN 2.Chest pain I did discuss with Ronak and his that is quite possible when he lifted that heavy object and had chest discomfort was related to a very hypertensive response. With normal activity is not having any anginal symptoms currently his EKG and echo are normal. His blood pressure is very well controlled. In light of that I would just continue to monitor. I discussed that if he noted any chest tightness or a decline in his functional capacity to let us know. He is chronically on Plavix due to a previous infarct. He has some mild bruising but otherwise is tolerating it. He is on appropriate medical regiment including atorvastatin losartan and amlodipine in addition to his Plavix. He will see Roxann, our nurse practitioner, in 6 months. I will see him in a year. Sooner if he has any issues. Immunizations Given and Recorded Vaccine Date Status Refusal Reason SARS-CoV-2 (COVID-19) mRNA BNT-162b2 vax 03/28/21 Recorded SARS-CoV-2 (COVID-19) mRNA BNT-162b2 vax 1 08/20/20 Recorded SARS-CoV-2 (COVID-19) mRNA BNT-162b2 vax 2 07/30/20 Recorded influenza virus vaccine, inactivated 03/09/21 Give n influenza virus vaccine, inactivated 3 03/27/20 Gi david influenza virus vaccine, inactivated 05/07/19 Give n influenza virus vaccine, inactivated 04/08/18 Give n influenza virus vaccine, inactivated 04/15/17 Give n influenza virus vaccine, inactivated 04/27/16 Give n influenza virus vaccine, inactivated 04/13/15 Give n influenza virus vaccine, inactivated 04/19/14 Give n influenza virus vaccine, inactivated 04/13/13 Give n influenza virus vaccine, inactivated 03/19/12 Give n zoster vaccine, inactivated 05/07/19 Given pneumococcal 23-valent vaccine 04/27/16 Given pneumococcal 23-valent vaccine 03/09/04 Recorded pneumococcal 13-valent vaccine 05/25/14 Given tetanus/diphtheria/pertuss, acel (Tdap) 4 02/03/14 Recorded tetanus/diphtheria/pertuss, acel (Tdap) 02/09/11 R ecorded diphtheria/pertussis, whole cell/tetanus 5 02/03/14 Recorded zoster vaccine live 10/16/11 Recorded hepatitis A adult vaccine 01/23/07 Recorded hepatitis A adult vaccine 07/15/06 Recorded tetanus toxoids-diphtheria, Td (Adult) 08/06/03 Re corded 1Result Comment: 2021-05-25: Historical information-source unspecified 2Result Comment: 2021-05-25: Historical information-source unspecified 3Early/Late Reason: Early/Late Reason: Other : pt requested later 4Result Comment: 2021-05-25: Historical information-source unspecified 5Result Comment: 2021-05-25: Historical information-source unspecified Medications amLODIPine 10 mg oral tablet Start: 06/29/22 10:37:00 EST, See Instructions, Disp# 90 tab, Refills: 3, TAKE ONE TABLET BY MOUTH DAILY, Pharmacy: [facility] #[id number] Start Date: 06/29/22 Status: Ordered atorvastatin 40 mg oral tablet Start: 10/31/22 11:22:00 EDT, See Instructions, Disp# 90 tab, Refills: 3, take 1 tablet by mouth daily, Pharmacy: [facility] #[id number] Start Date: 10/31/22 Status: Ordered clopidogrel 75 mg oral tablet Start: 11/21/22 12:58:00 EDT, See Instructions, Disp# 90 tab, Refills: 3, take 1 tablet by mouth daily, Pharmacy: [facility] #[id number] Start Date: 11/21/22 Status: Ordered diclofenac 1% topical gel Start: 09/06/22 8:43:00 EDT, See Instructions, Disp# 300 g, Refills: 5, apply topically 4 grams TO THE LEFT KNEE FOUR TIMES A DAY, Pharmacy: [facility] #[id number] Start Date: 09/06/22 Status: Ordered gabapentin 100 mg oral capsule Start: 09/18/22 11:01:00 EDT, See Instructions, Disp# 90 cap, Refills: 0, take 1 capsule by mouth three times a day, [facility]acy: [facility] #[id number] Start Date: 09/18/22 Status: Ordered losartan 50 mg oral tablet Start: 09/25/22 13:09:00 EDT, See Instructions, Disp# 180 tab, Refills: 3, take 1 tablet by mouth twice a day, Pharmacy: [facility] #[id number] Start Date: 09/25/22 Status: Ordered multivitamin Start: 04/27/20 9:13:00 EST, 1 tab, PO, Daily Start Date: 04/27/20 Status: Ordered pantoprazole 40 mg oral delayed release tablet Start: 07/16/22 17:25:00 EST, See Instructions, Disp# 180 tab, Refills: 3, TAKE ONE TABLET BY MOUTHTWICE DAILY, Pharmacy: [facility] #[id number] Start Date: 07/16/22 Status: Ordered terazosin 1 mg oral capsule Start: 10/02/22 17:28:00 EDT, See Instructions, Disp# 30 cap, Refills: 3, take 1 capsule by mouth at bedtime, Pharmacy: [facility] #[id number] Start Date: 10/02/22 Status: Ordered Problem List Condition Confirmation Course Effective Dates Status Health Status Informant Renal cyst, acquired, left Confirmed Active Benign essential HTN Confirmed Active BPH (benign prostatic hypertrophy) Confirmed Active Carpal tunnel syndrome Confirmed Active Chest pain Confirmed Active Chronic cough Confirmed Active Chronic kidney disease Confirmed Active Digital warts Confirmed Active Diverticular disease Confirmed Active Diverticulosis Confirmed Active Duodenal ulcer 1 Confirmed Active Dysplastic nevus 2 Confirmed Active ED (erectile dysfunction) Confirmed Active ELEVATED PROSTATE SPECIFIC ANTIGEN [PSA] Confirmed Active Elevated uric acid Confirmed Active Esophagitis Confirmed Active Family history of colon cancer 3 Confirmed Active Fatigue Confirmed Active H/O actinic keratosis 4 Confirmed Active HBP (high blood pressure) Confirmed Active Hearing decreased Confirmed Active History of gout Confirmed Active Hoarseness, persistent Confirmed Active Hypercalcemia Confirmed Active Hyperparathyroidism Confirmed Active Hypertension Confirmed Active Acute ischemic multifocal multiple vascular territories stroke Confirmed Active KIDNEY STONES Confirmed Active Left elbow pain Confirmed Active PATELLAR DISLOCATION 5 Confirmed Active Prostatism Confirmed Active Testosterone deficiency Confirmed Active Tubular adenoma Confirmed 11/18/03 Active Vitamin D deficiency Confirmed Active 1H. pylori neg 2left back 3mother , at 79 4right cheek, left ear 5H/O Diagnosis Diagnosis Type Effective Dates Health Status Cl inical Service Informant Benign essential HTN Discharge Diagnosis 01/03/23 Chest pain Discharge Diagnosis 01/03/23 Procedures Procedure Date Related Diagnosis Body Site Status X-ray of both knees 1 01/03/23 Com pleted Carpal tunnel release 2 02/23/21 C ompleted Carpal tunnel release 3 05/03/[address] angiography of chest with contrast 4 03/25/20 Completed MRI of abdomen and pelvis 5 08/21/17 Completed MRI of orbits 6 08/21/17 Completed Chest x-ray 7 08/20/17 Completed X-ray of thoracic spine 8 08/20/17 Completed CXR - Chest X-ray 9 08/12/[address] of abdomen and pelvis 10 08/11/17 Completed Chest x-ray 11 07/26/[address] of abdomen and pelvis 12 06/19/16 Completed MRI of the brain combo 13 04/24/[address] head w/o contrast 14 04/13/[address] of cervical spine 15 04/13/[address] of head 16 12/29/15 Completed X-ray of cervical spine 17 12/29/15 Completed CXR - Chest X-ray 18 12/21/15 Comp leted Colonoscopy 19 10/11/15 Completed Mohs surgery 10/11/14 Completed TURP - Transurethral resecti on of prostate 20 06/02/13 Completed colonoscopy normal 10/09/06 Comple hipolito colostomy reversal 2005 Comple hipolito sigmoid colectomy 2005 Comp leted colonoscopy 22 11/18/03 Completed Tympanoplasty 1990 Complete d left knee arthroscopy 1986 Com pleted right knee arthroscopy 1976 Co mpleted pilonidal cystectomy 1963 Comp leted Endoscopy 24 Completed surgical removal foreign body [facility]: 1. No acute fracture or dislocation 2. Tricompartmentral osteoarthritis of the knees, severe within the right lateral compartment 2Right Wrist Open Carpal Tunnel Release 3Left 41. Marked progression in the lower lobe and right middle lobe areas of parenchymal consolidation. 2. Within the right lower lobe, there is an area of diminished right, attenuation. Developing lung necrosis cannot be excluded. Careful follow-up in this regard is advocated. 3. No evidence of thoracic aortic dissection. 4. 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 No evidence of pathologic adenopathy. 6. Endotracheal tube 2 cm above the sobeida. 5[facility] Impression: 1. 9.1 cm left renal cyst. No solid renal lesion 2. Cholelithiasis [facility] Impression: 1. No radiopaque foreign bodies identified within the orbits 7No convincing evidence of acute displaced right rib fracture Multiple old Right rib fractures. No acute cardiopulmonary disease. 8[facility] Impression: 1. Degenerative changes without acute fracture or subluxation identified 9No acute cardiopulmonary findings. No change in appearance of the chest. 10[facility] Impression: 1. Punctate nonobstructing left renal calculus 2. 8.4 cm left renal cyst 3. Cholelithiasis 4. No evidence of bowel obstruction. No evidence of free air 5. Right internal hernia and multiple fat-containing ventral hernias 11[facility] Impression: 1. No active disease in the chest 12No acute or inflammatory findings, post-op changes of sigmoid colon w/colocolonic anastamosis, no obstruction, moderate colonic fecal retention, cardiolmegaly, hiatal hernia, hepatomaly, hepatic steatosis, mild splenomegaly 13[facility] Impression: 1. Age related changes as above with no acute intracranial abnormality [address] [place] [address] Impression: 1. No acute intracranial abnormalities 15[facility] Impression: 1. No acute abnormalities. No fracture seen 16No acute intracranial abnormality. 17Moderate degenerative change. No acute bony abnormality. 18no active disease. 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 20laser 21for perforated diverticulitis 22tubular adenomas 23right 24at [facility] [place] 2015 Vital Signs Most recent to oldest [Reference Range]: 1 Patient Weight 87 kg (01/03/23 11:50 AM) Heart Rate 65 bpm (01/03/23 11:50 AM) Blood Pressure 130/72mmHg (01/03/23 11:50 AM) BP Location # 1 Right Arm (01/03/23 11:50 AM) Social History Social History Type Response Smoking Status Never smoked cigaret eve Sex Male Cardiology Outpatient Note * DO Sexton Jason D: PERFORM Event Display: Cardiology Outpt Note Authored Date: [id number] Primary Care Provider MD Viktor, Jil Alvarado Referring Provider DO Sexton Jason D Chief Complaint 6 mon f/u Review of Systems PAST MEDICAL HISTORY: 1. Single episode of throat discomfort which does sound like angina. 2. Hypertension. 3. Hyperlipidemia. 4. History of prior lacunar infarcts, most recently 11/2019 involving the right cerebellum and the right posterior frontal lobe. 5. Echocardiogram at [facility] 06/12/22 with normal biventricular size and function, mild left ventricular hypertrophy. No resting wall motion abnormalities and aortic valve sclerosis. 6. BPH. ALLERGIES: LISINOPRIL. He feels well. He has had no anginal symptoms. There was an 11-day river cruise and he walked around without any chest tightness. 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 He has no orthostatic symptoms. He can walk 100 feet to the mailbox and has to return upgrade and has no difficulty with that. He has no palpitations or fluttering or feeling his heart racing. He has no lower extremity edema. He denies any PND orthopnea Physical Exam Vitals & Measurements HR:65(Monitored) BP:130/72 SpO2:98% WT:87kg WT:87.000kg(Dosing) EXAM: He is awake, alert and oriented x3. He is in no acute distress. He looks younger than his stated age HEENT: 2+ carotids upstrokes. There is no evidence of carotid bruits. Lungs: Clear to auscultation bilaterally. No rales, rhonchi or wheezing. Heart: Regular rate and rhythm. He hasa soft systolic ejection murmur 1/6 to the right sternal border which is early peaking.Extremities: No clubbing, cyanosis or edema. Psychiatric: Affect appear appropriate. Assessment/Plan 1.Benign essential HTN 2.Chest pain I did discuss with Ronak and his that is quite possible when he lifted that heavy object and hadchest discomfort was related to a very hypertensive response. With normal activity is not having any anginal symptoms currently his EKG and echo are normal. His blood pressure is very well controlled. In light of that I would just continue to monitor. I discussed that if he noted any chest tightness or a decline in his functional capacity to let us know. He is chronically on Plavix due to a previous infarct. He has some mild bruising but otherwise istolerating it. He is on appropriate medical regiment including atorvastatin losartan and amlodipine in addition tohis Plavix. He will see Roxann, our nurse practitioner, in 6 months. I will see him in a year. Sooner if he has any issues. Problem List/Past Medical History Ongoing Acute ischemic multifocal multiple vascular territories stroke Benign essential HTN BPH (benign prostatic hypertrophy) Carpal tunnel syndrome Chronic cough Chronic kidney disease Digital warts Diverticular disease Diverticulosis Duodenal ulcer Dysplastic nevus ED (erectile dysfunction) ELEVATED PROSTATE SPECIFIC ANTIGEN [PSA] Elevated uric acid Esophagitis Family history of colon cancer Fatigue H/O actinic keratosis HBP (high blood pressure) Hearing decreased History of basal cell carcinoma of skin History of gout Hoarseness, persistent Hypercalcemia Hyperparathyroidism Hypertension KIDNEY STONES Left elbow pain PATELLAR DISLOCATION Prostatism Renal cyst, acquired, left Testosterone deficiency Tubular adenoma Vitamin D deficiency Historical Acute diverticulitis Acute low back pain with sciatica Acute pharyngitis Anger Bursitis CONCUSSION Concussion without loss of consciousness, subsequent encounter Cough Diverticulitis Glucose intolerance Left wrist pain Major hemoptysis Olecranon bursitis Personal history UTI Plantar wart, left foot Pre-op examination Right hand pain Right shoulder TIA Urinary retention Procedure/Surgical History Carpal tunnel release (02/23/2021)Carpal tunnel release (05/03/2020)CT angiography of chest with contrast (03/25/2020)MRI of orbits (08/21/2017)MRI of abdomen and pelvis (08/21/2017)Chest x-ray (08/20/2017)X-ray of thoracic spine (08/20/2017)CXR - Chest X-ray (08/12/2017)CT of abdomen and pelvis (08/11/2017)Chest x-ray (07/26/2016)CT of abdomen and pelvis (06/19/2016)MRI of the brain combo (04/24/2016)CT of cervical spine (04/13/2016)CT head w/o contrast (04/13/2016)CT of head (12/29/2015)X-ray of cervical spine (12/29/2015)CXR - Chest X-ray (12/21/2015)Colonoscopy (10/11/2015)Mohs surgery (10/11/2014)TURP - Transurethral resectionof prostate (06/02/2013)colonoscopy normal (10/09/2006)colostomy reversal (2005)sigmoid colectomy (2005)colonoscopy (11/18/2003)Tympanoplasty (1990)left knee arthroscopy (1986)right knee arthroscopy (1976)pilonidal cystectomy (1962)surgical removal foreign body left eye Endoscopy Medications amLODIPine(amLODIPine 10 mg oral tablet), See Instructions, 3 refills atorvastatin(atorvastatin 40 mg oral tablet), See Instructions clopidogrel(clopidogrel 75 mg oral tablet), See Instructions diclofenac topical(diclofenac 1% topical gel), See Instructions gabapentin(gabapentin 100 mg oral capsule), See Instructions losartan(losartan 50 mg oral tablet), See Instructions multivitamin, 1 tab, PO, Daily pantoprazole(pantoprazole 40 mg oral delayed release tablet), See Instructions, 3 refills terazosin(terazosin 1 mg oral capsule), See Instructions Allergies lisinoprilcough Social History Smoking Status Never smoked cigarettes Alcohol - Denies Alcohol Use Employment/School - No Risk Status:Retired Previous employment/school:[employer] Activity level:Heavy physical work Work hazards:Heavy lifting/twisting Exercise - Regular exercise Duration (average number of minutes):15 Times per week:Daily Exercise type:Walking, Does daily stretching, arm lifts, leg lifts, resistance bands and foam roller for 15 minutes - 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 Other Details:Has not had a blood transfusion. Has not had screening for HIV or hepatitis C to his knowledge. Substance Abuse - Denies Substance Abuse Tobacco - Denies Tobacco Use Use:Never smoker Family History ASCVD (arteriosclerotic cardiovascular disease): MGF and MGM. Angina: Mother. BPH: Father. Breast cancer: PGM. Cardiovascular disease: Mother. Colon cancer..: Mother. DVT - Deep vein thrombosis of lower limb: Father. Silicosis: Father. Varicose veins: Father. Health Status Family Member(s) Daughter: History is negative Family Member(s) Relationship: Mother, Age: 79 Years, Cause: colon cancer Relationship: Father, Age: 88 Years, Cause: after THR Relationship: MGF, Age: 78 Years, Cause: ASCVD Relationship: MGM, Age: 78 Years, Cause: ASCVD Electronic Signature on File CC: Jil Hoang MD [address] [place] [id number] Electronically Reviewed/Signed by: Dominic Sexton DO Author Signature Dt/Tm:01/03/2023 12:24 PM Statement Services Representativesole tacker [facility] [place] [place] [address] JDF Patient Care team information Care Team Personnel Name: MD Yen Jonathan D Position: Physician - Family Med Member Role: Lifetime Relationship Address: Address: [address] [place] [address] [place] Name: SIVAKUMAR Alcazar Ashley Position: Physician Scanner Operator - Neurosurgery Member Role: Lifetime Relationship Address: Address: [address] [facility] [address] [place] [address] [place] Name: MD Viktor, Jil Alvarado Position: Physician - Family Med Member Role: Primary Care Provider Address: Address: [address] [place] [id number] [place] Care Team Related Persons Name: CRISTI DINH Address: home [address] [facility] [id number] Name: JAYY ZAMUDIO Address: home [address] [place] [address], [phone]
--- OUTSIDE RECORDS SUMMARY | 2023-06-01 07:45 | External Medical Summary | Continuity of Care Document ---
Author Name Unknown Organization [facility] [address] [facility] Address [address], [place] [id number] Care Team Providers Care Patternmaker Bench Name Role Phone Jennie Stock Primary Care Physician [phone] Encounter [facility] RENYR [phone] Date(s): 04/22/23 - 04/22/23 [facility] [address], [address] [place] [address] [phone] Encounter Diagnosis Benign hypertension without CHF(Discharge Diagnosis) - 04/22/23 Chronic kidney disease stage 3A (disorder)(Discharge Diagnosis) - 04/22/23 Essential (primary) hypertension(Final) - Chronic kidney disease, stage 3a(Final) - 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) - 04/22/23 Chronic GERD(Discharge Diagnosis) - 04/22/23 Chest tightness(Discharge Diagnosis) - 04/22/23 History of ischemic stroke(Discharge Diagnosis) - 04/22/23 Discharge Disposition: Home or Self Care Attending Physician: SIVAKUMAR Stock Jessica A Referring Physician: SIVAKUMAR Stock Jessica A Allergies, Adverse Reactions, Alerts Substance Reaction Severity Status lisinopril cough Active Assessment and Plan Extracted from: Title:annual check in Author:SIVAKUMAR Stock Je ssica A Date:04/22/23 1.Benign hypertension with out CHF Benign HTN without congestive heart failure is chronic and well controlled. Goal SBP <135 and DBP <85 mmHg. To continue losartan 50 mg, 1 tab p.o. daily. Last FCM and cardiology notes reviewed today. Last labs reviewed fromfall 2021 as well. Updated orders forCMP, lipid profile and TSH placed today. He will RTC annuallyand sooner if needed. 2.Chronic kidney disease stage 3A (disorder) Stage III CKD is chronic and stable. Last clinic note last labs reviewed today. CMP ordered. 3.Chest tightness Chesttightness is chronic, intermittent andis reproducible with heavy lifting ormoderate exertion on inclines. [facility]. Symptoms have not worsened and to continue with care of cardiology every 6 months. EKG and echocardiogram are UTD. 4.Chronic GERD Chronic GERD isasymptomatic and well controlled with pantoprazole 40 mg, 1 tab p.o. twice daily. Goal is continued partial to full remission of symptoms. EGDs have been completed in the past. No alarm sx. RTC annually and sooner if needed. 5.History of ischemic stroke History of ischemic CVAis chronic and has no residual deficits. To continue on clopidogrel 75 mg once daily. 6.BPH with obstruction/lower urinary tract symptoms BPH with lower urinary tract symptoms is chronicand currently well controlled with terazosin 1 mg, 1 tab p.o. daily. Outside urology note reviewed today from December 2022. To continue current regimenand follow-up again annually and sooner if needed. Immunizations Given and Recorded Vaccine Date Status Refusal Reason influenza virus vaccine, inactivated 04/02/23 Ronny rded influenza virus vaccine, inactivated 03/09/21 Give n influenza virus vaccine, inactivated 1 03/27/20 Gi david influenza virus vaccine, inactivated 05/07/19 Give n influenza virus vaccine, inactivated 04/08/18 Give n influenza virus vaccine, inactivated 04/15/17 Give n influenza virus vaccine, inactivated 04/27/16 Give n influenza virus vaccine, inactivated 04/13/15 Give n influenza virus vaccine, inactivated 04/19/14 Give n influenza virus vaccine, inactivated 04/13/13 Give n influenza virus vaccine, inactivated 03/19/12 Give n SARS COVID Vaccine Unspecified 04/02/23 Recorded SARS-CoV-2 (COVID-19) mRNA BNT-162b2 vax 03/28/21 Recorded SARS-CoV-2 (COVID-19) mRNA BNT-162b2 vax 2 08/20/20 Recorded SARS-CoV-2 (COVID-19) mRNA BNT-162b2 vax 3 07/30/20 Recorded zoster vaccine, inactivated 05/07/19 Given pneumococcal 23-valent vaccine 04/27/16 Given pneumococcal 23-valent vaccine 03/09/04 Recorded pneumococcal 13-valent vaccine 05/25/14 Given tetanus/diphtheria/pertuss, acel (Tdap) 4 02/03/14 Recorded tetanus/diphtheria/pertuss, acel (Tdap) 02/09/11 R ecorded diphtheria/pertussis, whole cell/tetanus 5 02/03/14 Recorded zoster vaccine live 10/16/11 Recorded hepatitis A adult vaccine 01/23/07 Recorded hepatitis A adult vaccine 07/15/06 Recorded tetanus toxoids-diphtheria, Td (Adult) 08/06/03 Re corded 1Early/Late Reason: Early/Late Reason: Other : pt requested later 2Result Comment: 2021-05-25: Historical information-source unspecified 3Result Comment: 2021-05-25: Historical information-source unspecified 4Result Comment: 2021-05-25: Historical information-source unspecified 5Result Comment: 2021-05-25: Historical information-source unspecified Medications amLODIPine 10 mg oral tablet Start: 06/29/22 10:37:00 EST, See Instructions, Disp# 90 tab, Refills: 3, TAKE ONE TABLET BY MOUTH DAILY, Pharmacy: [facility] #[id number] Start Date: 06/29/22 Status: Ordered atorvastatin 40 mg oral tablet Start: 10/31/22 11:22:00 EDT, See Instructions, Disp# 90 tab, Refills: 3, take 1 tablet by mouth daily, Pharmacy: [facility] #[id number] Start Date: 10/31/22 Status: Ordered clopidogrel 75 mg oral tablet Start: 11/21/22 12:58:00 EDT, See Instructions, Disp# 90 tab, Refills: 3, take 1 tablet by mouth daily, Pharmacy: [facility] #[id number] Start Date: 11/21/22 Status: Ordered diclofenac 1% topical gel Start: 03/13/23 9:26:00 EDT, See Instructions, Disp# 300 g, Refills: 1, apply topically 4 grams TO THE LEFT KNEE FOUR TIMES A DAY, Pharmacy: [facility] #[id number] Start Date: 03/13/23 Status: Ordered losartan 50 mg oral tablet Start: 09/25/22 13:09:00 EDT, See Instructions, Disp# 180 tab, Refills: 3, take 1 tablet by mouth twice a day, [id number] Start Date: 09/25/22 Status: Ordered multivitamin Start: 04/27/20 9:13:00 EST, 1 tab, PO, Daily Start Date: 04/27/20 Status: Ordered pantoprazole 40 mg oral delayed release tablet Start: 07/16/22 17:25:00 EST, See Instructions, Disp# 180 tab, Refills: 3, TAKE ONE TABLET BY MOUTHTWICE DAILY, [facility]acy: [facility][id number] Start Date: 07/16/22 Status: Ordered terazosin 1 mg oral capsule Start: 02/15/23 15:33:00 EDT, 1 cap, PO, Daily, Disp# 90 cap, Refills: 3, Pharmacy: [facility][id number] Start Date: 02/15/23 Stop Date: 02/10/24 Status: Ordered Mental Status 04/22/23 Barriers to Learning one year None evide nt Mandatory Health Literacy Documentation Yes Health Literacy Communication Barriers N ever Primary Language Serbian Problem List Condition Confirmation Course Effective Dates Status Health Status Informant Renal cyst, acquired, left Confirmed Active Arthritis of right knee Confirmed Active Atherosclerosis of aorta 1 Confirmed Active Benign hypertension without CHF Confirmed Active BPH (benign prostatic hypertrophy) Confirmed Active Carpal tunnel syndrome Confirmed Active Chest pain Confirmed Active Chronic cough Confirmed Active Chronic kidney disease Confirmed Active Chronic kidney disease stage 3A (disorder) Confirmed Active Digital warts Confirmed Active Diverticular disease Confirmed Active Diverticulosis Confirmed Active Duodenal ulcer 2 Confirmed Active Dysplastic nevus 3 Confirmed Active ED (erectile dysfunction) Confirmed Active ELEVATED PROSTATE SPECIFIC ANTIGEN [PSA] Confirmed Active Elevated uric acid Confirmed Active Esophagitis Confirmed Active Family history of colon cancer 4 Confirmed Active Fatigue Confirmed Active Chronic GERD Confirmed Active H/O actinic keratosis 5 Confirmed Active HBP (high blood pressure) Confirmed Active Hearing decreased Confirmed Active History of gout Confirmed Active Hoarseness, persistent Confirmed Active Hypercalcemia Confirmed Active Hyperparathyroidism Confirmed Active Hypertension Confirmed Active KIDNEY STONES Confirmed Active Left elbow pain Confirmed Active Right knee pain Confirmed Active PATELLAR DISLOCATION 6 Confirmed Active Prostatism Confirmed Active Testosterone deficiency Confirmed Active Tubular adenoma Confirmed 11/18/03 Active Vitamin D deficiency Confirmed Active - XR Chest 1 View FINDINGS: Tortuosity of the thoracic aorta with atherosclerotic calcification. 2H. pylori neg 3left back 4mother , at 79 5right cheek, left ear 6H/O Diagnosis Diagnosis Type Effective Dates Health Status Clinical Service Informant BPH with obstruction/lower urinary tract symptoms Discharge Diagnosis 04/22/23 Non-Specified Benign hypertension without CHF Discharge Diagnosis 04/22/23 Chronic kidney disease stage 3A (disorder) Discharge Diagnosis 04/22/23 Chronic GERD Discharge Diagnosis 04/22/23 Chest tightness Discharge Diagnosis 04/22/23 Non-Specified History of ischemic stroke Discharge Diagnosis 04/22/23 Procedures Procedure Date Related Diagnosis Body Site [...] knee arthroscopy 1976 Co mpleted pilonidal cystectomy 1962 Comp leted Endoscopy 24 Completed surgical removal foreign body left eye Completed [address] [place] [address] Impression: 1. No acute fracture or dislocation [...] tube 2 cm above the sobeida. 5[facility] Impression: 1. 9.1 cm left renal cyst. No solid renal lesion 2. Cholelithiasis 6[facility] Impression: 1. No radiopaque foreign bodies identified within the orbits 7No convincing evidence of acute displaced right rib fracture Multiple old Right rib fractures. No acute cardiopulmonary disease. 8[facility] Impression: 1. Degenerative changes without acute fracture or subluxation identified 9No acute cardiopulmonary findings. No change in appearance of the chest. 10[facility] Impression: 1. Punctate nonobstructing left renal calculus 2. 8.4 cm left renal cyst 3. Cholelithiasis 4. No evidence of bowel obstruction. No evidence of free air 5. Right internal hernia and multiple fat-containing ventral hernias 11[facility] Impression: 1. No active disease in the chest 12No acute or inflammatory findings, post-op changes of sigmoid colon w/colocolonic anastamosis, no obstruction, moderate colonic fecal retention, cardiolmegaly, hiatal hernia, hepatomaly, hepatic steatosis, mild splenomegaly 13[facility] Impression: 1. Age related changes as above with no acute intracranial abnormality 14[facility] Impression: 1. No acute intracranial abnormalities 15[facility] Impression: 1. No acute abnormalities. No fracture seen 16No acute intracranial abnormality. 17Moderate degenerative change. No acute bony abnormality. 18no active disease. 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 20laser 21for perforated diverticulitis 22tubular adenomas 23right 24at [facility] on 2015 Results Laboratory List Name Date Comprehensive Metabolic Panel (COMP META B PANEL) 04/22/23 Lipid Profile (LIPOPROTEINS) 04/22/23 Thyroid Stimulating Hormone (TSH) Most recent to oldest [Reference Range]: 1 eGFR CKD-EPI [>60 mL/min/1.73 m2] 58 mL/ min/1.73 m2 1 *LOW* (04/22/23 8:43 AM) Non-HDL 81 mg/dL 2 (04/22/23 8:43 AM) Estimated CrCl 48.90 mL/min (04/22/23 9:47 AM) Anion Gap [5-14 mmol/L] 6 mmol/L (04/22/23 8:43 AM) Alb [3.5-5.0 g/dL] 4.4 g/dL (04/22/23 8:43 AM) Alk Phos [38-126 unit/L] 80 unit/L (04/22/23 8:43 AM) ALT [<50 unit/L] 22 unit/L (04/22/23 8:43 AM) AST [15-46 unit/L] 24 unit/L (04/22/23 8:43 AM) BUN [7-20 mg/dL] 18 mg/dL (04/22/23 8:43 AM) Ca [8.4-10.2 mg/dL] 10.4 mg/dL *HI* (04/22/23 8:43 AM) Chol/HDL 2 (04/22/23 8:43 AM) Chol [125-200 mg/dL] 136 mg/dL (04/22/23 8:43 AM) Cl- [96-107 mmol/L] 109 mmol/L *HI* (04/22/23 8:43 AM) HCO3 [22-30 mmol/L] 27 mmol/L (04/22/23 8:43 AM) Cret [0.70-1.30 mg/dL] 1.23 mg/dL (04/22/23 8:43 AM) Glu [74-106 mg/dL] 118 mg/dL *HI* (04/22/23 8:43 AM) HDL [>35 mg/dL] 55 mg/dL (04/22/23 8:43 AM) K [3.5-5.1 mmol/L] 4.9 mmol/L (04/22/23 8:43 AM) LDL Chol, Calculated [50-130 mg/dL] 59 m g/dL (04/22/23 8:43 AM) Na [137-145 mmol/L] 142 mmol/L (04/22/23 8:43 AM) T Bili [0.2-1.3 mg/dL] 0.6 mg/dL (04/22/23 8:43 AM) Prot [6.3-8.2 g/dL] 7.4 g/dL (04/22/23 8:43 AM) TG [<200 mg/dL] 110 mg/dL (04/22/23 8:43 AM) TSH [0.47-4.68 uIU/mL] 5.35 uIU/mL 3 *HI* (04/22/23 8:43 AM) 1Result Comment: Testing Performed By: Dept of Pathology [facility], [address] [place] [address], [place] [address] 2Result Comment: Testing Performed By: Dept of Pathology [facility], [address] [place] [address], [place] [address] 3Result Comment: Testing Performed By: Dept of Pathology [facility], [address] [place] [address], [place] [id number] Vital Signs Most recent to oldest [Reference Range]: 1 Patient Weight 87.3 kg (04/22/23 8:08 AM) Heart Rate 68 bpm (04/22/23 8:08 AM) Respiratory Rate 16 br/min (04/22/23 8:08 AM) Blood Pressure 122/60mmHg (04/22/23 8:08 AM) Cuff Pulse Pressure 62 mmHg (04/22/23 8:08 AM) BP Location # 1 Left Arm (04/22/23 8:08 AM) Social History Social History Type Response Smoking Status Never smoked cigaret eve Sex Male [facility] Note * SIVAKUMAR Stock, Jennie Loza: PERFORM Event Display: [facility] Note Authored Date: Chief Complaint Check up History of Present Illness Joyce presentsfollow up of HTN without CHF,exertional chest/throat tightness, GERD, ischemic CVA and hx of aspiration PNA. Hypertension without history of CHFis chronic and well controlled. Compliant with losartan 50 mg, 1 tab p.o. daily. He does not check BP at home, but does have a cuff. No EtOH, tobacco or recreational drug use. He does do daily stretching and strengthening exercises at home in the morning for 15 to 20 minutes. 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 He does still get intermittentupper substernal/throat tightnessat times and most recently had this in the last week when he waswalking up a steady incline in his driveway about 200 yards. Symptoms resolved with rest. He has been following with [facility]ology regarding symptomsevery 6 months, which does sound like angina, but for nowthey are treating medically and monitoringfor worsening symptoms.No claudication, chest pain at rest, SOB, palpitations, tachycardia, dizziness, lightheadedness, weakness, near syncope, syncope, nausea, vomiting, diarrhea, constipation, cou gh, LE edema, headaches, blurred vision, loss of vision, confusion or epistaxis. GERD is chronic stable w/ pantoprazole 40 mg BID. Hx of aspiration PNA in 2019 when on once daily dosing, so this has been increased to BID. No breakthrough heartburn, nausea, vomiting, hoarseness, abdominal pain, melena, hematochezia, change in bowel habits, dysphagia, odynophagia or unintentional weight loss. BPH with lower urinary tract symptoms is chronic and followed by [facility]annuallywho he last saw in December 2022. Remains on terazosin 1 mg, 1 tab p.o. daily. Hx of greenlight prostatectomy in 2012. Typically wakes up 1 time per night to void. No dysuria, hematuria, urinary frequency, urinary urgency, incontinence, urinary retentionorback pain. Joyce suffered an acute multi-territory ischemic CVA in October 2019 without lingering deficits. He wason dual antiplatelet therapy with ASA 81 mg and clopidogrel 75 mg for 3 weeks and then transition to monotherapy with clopidogrel 75 mg daily. Echocardiogram and 30-day event monitor were negative for cardioembolic source.No melena, hematochezia, hematuria, easy bruising, pallor, petechial rashes or epistaxis. Review of Systems ROS:All other systems negative, except HPI. Physical Exam Vitals & Measurements HR:68(Monitored) RR:16 BP:122/60 SpO2:95% WT:87.3kg WT:87.300kg(Dosing) PHQ2 Data(Data Documented on:04/22/2023 08:08) Emotional health assessment NEGATIVE General: Alert and oriented, No acute distress.Pleasant male w/ . Eye: Pupils are equal, round and reactive to light, Extraocular movements are intact, Normal conjunctiva. HENT: Normocephalic. TMs clear bilaterally. Posterior pharynx is pink. Uvula rises midline. No drooling, stridor or cyanosis. Neck: Supple, No lymphadenopathy, No thyromegaly. No audible carotid bruit. Respiratory: Lungs are clear to auscultation, Respirations are non-labored, Breath sounds are equal, Symmetrical chest wall expansion. Cardiovascular: Normal rate, Regular rhythm, No murmur, No gallop, Good pulses equal in all extremities, Normal peripheral perfusion. No LE edema. Abdomen: Normoactive BS x 4. Soft. No tenderness, palpable masses or organomegaly. Lymphatics: No submandibular, anterior or posterior cervical adenopathy palpable. Musculoskeletal Normal gait. FROM and 5/5 strength at BLE and BUE. Integumentary: Warm, [place], No pallor. Neurologic: Alert, Oriented, Cranial Nerves II-XII are grossly intact. Cognition and Speech: Oriented, Speech clear and coherent, Functional cognition intact. Psychiatric: Cooperative, Appropriate mood & affect, Normal judgment, Nonsuicidal. Assessment/Plan 1.Benign hypertension without CHF Benign HTN without congestive heart failure is chronic and well controlled. Goal SBP <135 and DBP <85 mmHg. To continue losartan 50 mg, 1 tab p.o. daily. Last FCM and cardiology notes reviewed today. Last labs reviewed fromfall 2021 as well. Updated orders forCMP, lipid profile and TSH placed today. He will RTC annuallyand sooner if needed. 2.Chronic kidney disease stage 3A (disorder) Stage III CKD is chronic and stable. Last clinic note last labs reviewed today. CMP ordered. 3.Chest tightness Chesttightness is chronic, intermittent andis reproducible with heavy lifting ormoderate exertion on inclines. This is being followed by [facility]ologyand[facility] represents angina. Symptoms have not worsened and to continue with care of cardiology every 6 months. EKG and echocardiogram are UTD. 4.Chronic GERD Chronic GERD isasymptomatic and well controlled with pantoprazole 40 mg, 1 tab p.o. twice daily. Goal is continued partial to full remission of symptoms. EGDs have been completed in the past.No alarm sx. RTC annually and sooner if needed. 5.History of ischemic stroke History of ischemic CVAis chronic and has no residual deficits. To continue on clopidogrel 75 mg once daily. 6.BPH with obstruction/lower urinary tract symptoms BPH with lower urinary tract symptoms is chronicand currently well controlled with terazosin 1 mg, 1 tab p.o. daily. Outside urology note reviewed today from December 2022. To continue current regimenand follow-up again annually and sooner if needed. Problem List/Past Medical History Ongoing Arthritis of right knee Atherosclerosis of aorta Benign hypertension without CHF BPH (benign prostatic hypertrophy) Carpal tunnel syndrome Chest pain Chronic cough Chronic GERD Chronic kidney disease Chronic kidney disease stage 3A (disorder) Digital warts Diverticular disease Diverticulosis Duodenal ulcer Dysplastic nevus ED (erectile dysfunction) ELEVATED PROSTATE SPECIFIC ANTIGEN [PSA] Elevated uric acid Esophagitis Family history of colon cancer Fatigue H/O actinic keratosis HBP (high blood pressure) Hearing decreased History of basal cell carcinoma of skin History of gout Hoarseness, persistent Hypercalcemia Hyperparathyroidism Hypertension KIDNEY STONES Left elbow pain PATELLAR DISLOCATION Prostatism Renal cyst, acquired, left Right knee pain Testosterone deficiency Tubular adenoma Vitamin D deficiency Historical Acute diverticulitis Acute ischemic multifocal multiple vascular territories stroke Acute low back pain with sciatica Acute pharyngitis Anger Bursitis CONCUSSION Concussion without loss of consciousness, subsequent encounter Cough Diverticulitis Glucose intolerance Left wrist pain Major hemoptysis Olecranon bursitis Personal history UTI Plantar wart, left foot Pre-op examination Right hand pain Right shoulder TIA Urinary retention Procedure/Surgical History X-ray of both knees (01/03/2023)Carpal tunnel release (02/23/2021)Carpal tunnel release (05/03/2020)CT angiography of chest with contrast (03/25/2020)MRI of orbits (08/21/2017)MRI of abdomen and pelvis (08/21/2017)Chest x-ray (08/20/2017)X-ray of thoracic spine (08/20/2017) CXR - Chest X-ray (08/12/2017)CT of abdomen and pelvis (08/11/2017)Chest x-ray (07/26/2016)CT of abdomen and pelvis (06/19/2016)MRI of the brain combo (04/24/2016)CT of cervical spine(04/13/2016)CT head w/o contrast (04/13/2016)CT of head (12/29/2015)X-ray of cervical spine (12/29/2015)CXR - Chest X-ray (12/21/2015)Colonoscopy (10/11/2015)Mohs surgery (10/11/2014)TURP - Transurethral resection of prostate (06/02/2013)colonoscopy normal (10/09/2006)colostomy reversal (2005)sigmoid colectomy (2005)colonoscopy (11/18/2003)Tympanoplasty (1990)left knee arthroscopy (1986)right knee arthroscopy (1976)pilonidal cystectomy (1962)surgical removal foreign body left eyeEndoscopy Medications amLODIPine(amLODIPine 10 mg oral tablet), See Instructions, 3 refills atorvastatin(atorvastatin 40 mg oral tablet), See Instructions clopidogrel(clopidogrel 75 mg oral tablet), See Instructions diclofenac topical(diclofenac 1% topical gel), See Instructions losartan(losartan 50 mg oral tablet), See Instructions multivitamin, 1 tab, PO, Daily pantoprazole(pantoprazole 40 mg oral delayed release tablet), See Instructions, 3 refills terazosin(terazosin 1 mg oral capsule), 1 mg= 1 cap, PO, Daily, 3 refills Allergies lisinoprilcough Social History Smoking Status Never smoked cigarettes Alcohol - Denies Alcohol Use Employment/School - No Risk Status:Retired Previous employment/school:[employer] Activity level:Heavy physical work Work hazards:Heavy lifting/twisting Exercise - Regular exercise Duration (average number of minutes):15 Times per week:Daily Exercise type:Walking, Does daily stretching, arm lifts, leg lifts, resistance bands and foam roller for 15 minutes - 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 Home/Environment Lives with:Spouse Living situation:Home/Independent Other risks [...] Relationship: MGM, Age: 78 Years, Cause: ASCVD Immunizations Vaccine Date Status influenza virus vaccine, inactivated 04/02/2023 Recorded SARS COVID Vaccine Unspecified 04/02/2023 Recorded SARS-CoV-2 (COVID-19) mRNA BNT-162b2 vax 03/28/2021 Recorded influenza virus vaccine, inactivated 03/09/2021 Given SARS-CoV-2 (COVID-19) mRNA BNT-162b2 vax 08/20/2020 Recorded Comments : 2021-05-25: Historical information-source unspecified SARS-CoV-2 (COVID-19) mRNA BNT-162b2 vax 07/30/2020 Recorded Comments : 2021-05-25: Historical information-source unspecified influenza virus vaccine, inactivated 03/27/2020 Given Comments : Early/Late Reason: Other : pt requested later zoster vaccine, inactivated 05/07/2019 Given influenza virus vaccine, inactivated 05/07/2019 Given influenza virus vaccine, inactivated 04/08/2018 Given influenza virus vaccine, inactivated 04/15/2017 Given pneumococcal 23-valent vaccine 04/27/2016 Given influenza virus vaccine, inactivated 04/27/2016 Given influenza virus vaccine, inactivated 04/13/2015 Given pneumococcal 13-valent vaccine 05/25/2014 Given pneumococcal 13-valent vaccine - Not Given Comments : Vaccine Storage not given ,out of stock at this time influenza virus vaccine, inactivated 04/19/2014 Given tetanus/diphtheria/pertuss, acel (Tdap) 02/03/2014 Recorded Comments : 2021-05-25: Historical information-source unspecified diphtheria/pertussis, whole cell/tetanus 02/03/2014 Recorded Comments : 2021-05-25: Historical information-source unspecified influenza virus vaccine, inactivated 04/13/2013 Given influenza virus vaccine, inactivated 03/19/2012 Given zoster vaccine live 10/16/2011 Recorded tetanus/diphtheria/pertuss, acel (Tdap) 02/09/2011 Recorded hepatitis A adult vaccine 01/23/2007 Recorded hepatitis A adult vaccine 07/15/2006 Recorded pneumococcal 23-valent vaccine 03/09/2004 Recorded tetanus toxoids-diphtheria, Td (Adult) 08/06/2003 Recorded Recommendations Health Maintenance Pending(in the next year) Due Shingles Vaccine due04/22/23One-time only Due In Future Medicare Annual Wellness Visit not due until06/12/23and every 1year Adult Influenza Vaccine not due until12/23/23and every 1year Body Mass Index not due until04/21/24and every 1year Satisfied(in the past 1 year) Satisfied Adult Influenza Vaccine on04/02/23.Satisfied by TA Mcfarland Andrew E Body Mass Index on10/01/22.Satisfied by LEBRON Ochoa Lori K Medicare Annual Wellness Visit on06/12/22.Satisfied by SIVAKUMAR Stock Jessica A Patient Care team information Care Team Personnel Name: MD Farshad, John Palacios Position: Physician - Family Med Member Role: Lifetime Relationship Address: Address: [address] [place] [address] Name: SIVAKUMAR Alcazar Ashley Position: Physician Clinical Registered Nurse - Neurosurgery Member Role: Lifetime Relationship Address: Address: [address] [place] [address] [address] [place] [address] Name: SIVAKUMAR Stock Jessica A Position: Physician Asst Exmpt - Family Med Member Role: Primary Care Provider Address: Address: [address] [place] [address] [address] [place] [address] [place] Care Team Related Persons Name: CRISTI DINH Address: home [address] [facility], [phone] Name: JAYY ZAMUDIO Address: home [address] [place] [address], [phone]
--- OUTSIDE RECORDS SUMMARY | 2023-06-01 07:45 | External Medical Summary | Continuity of Care Document ---
Author Name Unknown Organization [id number] Address [address] [place] [id number] Care Team Providers Care Sexual Assault Counsellor Name Role Phone Jil Hoang Primary Care Physician [phone] [id number] Date(s): 02/01/23 - 02/01/23 [facility] [address] [place] [address] Encounter Diagnosis Arthritis of right knee(Discharge Diagnosis) - 02/01/23 Right knee pain(Discharge Diagnosis) - 02/01/23 Discharge Disposition: Home or Self Care Attending Physician: MD Trinh Paul S Allergies, Adverse Reactions, Alerts Substance Reaction Severity Status lisinopril cough Active Assessment and Plan Extracted from: Title:Сергей Trinh Author:Rosy Wood te:02/01/23 Impression:82-year-old Male with right knee arthritis Plan: -Patient was informed of RICE, heat, compression sleeve, brace, and cane. OTC analgesics -Today his right knee was aspirated and he received a cortisone injection. -Follow up as needed. Procedure: 30 cc of normal appearing fluid was aspirated from the right knee. 40 mg of Depo-Medrol and 3 cc 1% plain lidocainewere injected to the right knee. Treatment options were discussed. Preprocedural timeout was performed. Risks and benefits were reviewed. Verbal consent was obtained. The procedure was witnessed by the nurse. Immunizations Given and Recorded Vaccine Date Status [...] TAKE ONE TABLET BY MOUTH DAILY, Pharmacy: [facility] #[id number] Start Date: 06/29/22 Status: Ordered atorvastatin 40 mg oral tablet Start: 10/31/22 11:22:00 EDT, See Instructions, Disp# 90 tab, Refills: 3, take 1 tablet by mouth daily, Pharmacy: [facility] #[id number] Start Date: 10/31/22 Status: Ordered clopidogrel 75 mg oral tablet Start: 11/21/22 12:58:00 EDT, See Instructions, Disp# 90 tab, Refills: 3, take 1 tablet by mouth daily, Pharmacy: [facility] #[id number] Start Date: 11/21/22 Status: Ordered diclofenac 1% topical gel Start: 09/06/22 8:43:00 EDT, See Instructions, Disp# 300 g, Refills: 5, apply topically 4 grams TO THE LEFT KNEE FOUR TIMES A DAY, Pharmacy: [facility] #[id number] Start Date: 09/06/22 Status: Ordered gabapentin 100 mg oral capsule Start: 09/18/22 11:01:00 EDT, See Instructions, Disp# 90 cap, Refills: 0, take 1 capsule by mouth three times a day, Pharmacy: [facility] #[id number] Start Date: 09/18/22 Status: Ordered losartan 50 mg oral tablet Start: 09/25/22 13:09:00 EDT, See Instructions, Disp# 180 tab, Refills: 3, take 1 tablet by mouth twice a day, Pharmacy: [facility] #[id number] Start Date: 09/25/22 Status: Ordered multivitamin Start: 04/27/20 9:13:00 EST, 1 tab, PO, Daily Start Date: 04/27/20 Status: Ordered pantoprazole 40 mg oral delayed release tablet Start: 07/16/22 17:25:00 EST, See Instructions, Disp# 180 tab, Refills: 3, TAKE ONE TABLET BY MOUTHTWICE DAILY, Pharmacy: [facility] #[id number] Start Date: 07/16/22 Status: Ordered terazosin 1 mg oral capsule Start: 01/24/23 9:51:00 EDT, See Instructions, Disp# 30 cap, Refills: 6, take 1 capsule by mouth atbedtime, Pharmacy: [facility] #[id number] Start Date: 01/24/23 Status: Ordered Mental Status 02/01/23 Barriers to Learning one year None evide nt Mandatory Health Literacy Documentation Yes Health Literacy Communication Barriers N ever Primary Language Nepali Problem List Condition Confirmation Course Effective Dates Status Health Status Informant Renal cyst, acquired, left Confirmed Active Arthritis of right knee Confirmed Active Benign essential HTN Confirmed Active [...] Right knee pain Confirmed Active PATELLAR DISLOCATION 5 Confirmed Active Prostatism Confirmed Active Testosterone deficiency Confirmed Active Tubular adenoma Confirmed 11/18/03 Active Vitamin D deficiency Confirmed Active 1H. pylori neg 2left back 3mother , at 79 4right cheek, left ear 5H/O Diagnosis Diagnosis Type Effective Dates Health Status Cl inical Service Informant Arthritis of right knee Discharge Diagnosis 02/01/23 Right knee pain Discharge Diagnosis 02/01/23 Procedures Procedure Date Related Diagnosis Body Site [...] colostomy reversal 2005 Comple hipolito sigmoid colectomy 21 2005 Comp leted colonoscopy 22 11/18/03 Completed Tympanoplasty 1990 Complete d left knee arthroscopy 1986 Com pleted right knee arthroscopy 1976 Co mpleted pilonidal cystectomy 1963 Comp leted Endoscopy 24 Completed surgical removal foreign body left eye Completed [address] [place] [address] Impression: 1. No acute fracture or dislocation [...] tube 2 cm above the sobeida. 5[facility] Impression: 1. 9.1 cm left renal cyst. No solid renal lesion 2. [facility]lithiasis [facility] Imp[facility]: 1. No radiopaque foreign bodies identified within the orbits 7No convincing evidence of acute displaced right rib fracture Multiple old Right rib fractures. No acute cardiopulmonary disease. 8[facility] Impression: 1. Degenerative changes without acute fracture or subluxation identified 9No acute cardiopulmonary findings. No change in appearance of the chest. 10[facility] Impression: 1. Punctate nonobstructing left renal calculus 2. 8.4 cm left renal cyst 3. Cholelithiasis 4. No evidence of bowel obstruction. No evidence of free air 5. Right internal hernia and multiple fat-containing ventral hernias 11[facility] Impression: 1. No active disease in the chest 12No acute or inflammatory findings, post-op changes of sigmoid colon w/colocolonic anastamosis, no obstruction, moderate colonic fecal retention, cardiolmegaly, hiatal hernia, hepatomaly, hepatic steatosis, mild splenomegaly 13[facility] Impression: 1. Age related changes as above with no acute intracranial abnormality [facility] Impression: 1. No acute intracranial abnormalities 15[facility] Impression: 1. No acute abnormalities. No fracture seen 16No acute intracranial abnormality. 17Moderate degenerative change. No acute bony abnormality. 18no active disease. 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 20laser 21for perforated diverticulitis 22tubular adenomas 23[place] [facility] [place] Social History Social History Type Response Smoking Status Never smoked cigaret eve Sex Male Ortho Outpt Note * Rosy Wood: PERFORM, MODIFY MD Gayathri, Сергей Hines: MODIFY Event Display: Ortho Outpt Note Authored Date: [id number] Primary Care Provider MD Viktor, Jil Alvarado Chief Complaint Right knee pain History of Present Illness [id number] presents today forright knee pain. He was planting in October when he twisted his knee and has had intermittent pain since. Patient has been in physical therapy for his hip since September. He did not fall and denies injury. Patient has never had a cortisone injection before. dr herbert removed cartilage many years ago. Review of Systems A 14 point review of systems isavailable in the EMR. Physical Exam Focusing on the patient'srightlower extremity: ValgusAlignment Mild limp 1+DP andNonpalpablePT pulses Motor strength:5/5Knee flexion and extension; ankle plantarflexion, dorsiflexion, inversion, and eversion. Knee (right) ROM: 0/ 5/ 115 Hip ROM:Painless,Equal to other side Old lateral knee incision ModerateEffusion Positive lateral joint line tenderness Ligament exam: ACLIntact,Endpoint intact PCLIntact,Endpoint intact MCLIntact,Endpoint intact LCLIntact,Endpoint intact Diagnostic Results X-ray imaging: Non-weight bearing radiographs of the bilateral knees obtained on 01/03/2023 reviewed by me show vascular calcifications and chondrocalcinosis. There is evidence of right knee arthritis lateral compartment. No fractures. Assessment/Plan Impression:[id number] with right knee arthritis Plan: -Patient was informed of RICE, heat, compression sleeve, brace, and cane. OTC analgesics -Today his right knee was aspirated and he received a cortisone injection. -Follow up as needed. Procedure: 30 cc of normal appearing fluid was aspirated from the right knee. 40 mg of Depo-Medrol and 3 cc 1%plain lidocainewere injected to the right knee. Treatment options were discussed. Preprocedural timeout was performed. Risks and benefits were reviewed. Verbal consent was obtained. The pr ocedure was witnessed by the nurse. Attestation I, Rosy Wood, have scribed for, and in the presence of, Сергей Trinh, on this date,02/01/2023 12:34:56. Problem List/Past Medical History Ongoing Acute ischemic multifocal multiple vascular territories stroke Benign essential HTN BPH (benign prostatic hypertrophy) Carpal tunnel syndrome Chest pain Chronic cough Chronic kidney disease Digital warts [...] retention Procedure/Surgical History X-ray of both knees (01/03/2023) Carpal tunnel release (02/23/2021) Carpal tunnel release (05/03/2020) CT angiography of chest with contrast (03/25/2020) MRI of orbits (08/21/2017) MRI of abdomen and pelvis (08/21/2017) Chest x-ray (08/20/2017) X-ray of thoracic spine (08/20/2017) CXR - Chest X-ray (08/12/2017) CT of abdomen and pelvis (08/11/2017) Chest x-ray (07/26/2016) CT of abdomen and pelvis (06/19/2016) MRI of the brain combo (04/24/2016) CT of cervical spine (04/13/2016) CT head w/o contrast (04/13/2016) CT of head (12/29/2015) X-ray of cervical spine (12/29/2015) CXR - Chest X-ray (12/21/2015) Colonoscopy (10/11/2015) Mohssurgery (10/11/2014) TURP - Transurethral resection of prostate (06/02/2013) colonoscopy normal (10/09/2006) colostomy reversal (2005) sigmoid colectomy (2005) colonoscopy (11/18/2003)Tympanoplasty (1990) left knee arthroscopy (1986) right knee arthroscopy (1976) pilonidal cystectomy (1962) surgical removal foreign body left eyeEndoscopy Medications amLODIPine(amLODIPine [...] - 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 Home/Environment Lives with:Spouse Living situation:Home/Independent Other risks [...] Years, Cause: ASCVD Immunizations Vaccine Date Status SARS-CoV-2 (COVID-19) mRNA BNT-162b2 vax 03/28/2021 Recorded [...] Recommendations Health Maintenance Pending(in the next year) OverDue Adult Influenza Vaccine due12/22/22and every 1year Due Adult COVID-19 Vaccination due02/01/23Unknown Frequency Shingles Vaccine due02/01/23One-time only Due In Future Medicare Annual Wellness Visit not due until06/12/23and every 1year Body Mass Index not due until01/03/24and every 1year Satisfied(in the past 1 year) Satisfied Body Mass Index on10/01/22.Satisfied by LEBRON Ochoa Lori K Medicare Annual Wellness Visit on06/12/22.Satisfied by SIVAKUMAR Stock Jessica A Electronic Signature on File Electronically Reviewed/Signed by: Rosy Wood Author Signature Dt/Tm:02/01/2023 01:05 PM Electronically Reviewed/Signed by: Сергей Trinh MD Cosigner Signature Dt/Tm: 02/01/2023 01:23 PM Division of Sports Medicine OA Patient Care team information Care Team Personnel Name: MD Farshad, John Palacios Position: Physician - Family Med Member Role: Lifetime Relationship Address: Address: [address] [place] [address] [place] Name: SIVAKUMAR Alcazar Ashley Position: Physician Infection Control Nurse - Neurosurgery Member Role: Lifetime Relationship Address: Address: [address] [facility] [address] [address] [place] [address] [place] Name: MD Viktor, Jil Alvarado Position: Physician - Family Med Member Role: Primary Care Provider Address: Address: [address] [facility] [facility] [address] [place] [address] Care Team Related Persons Name: CRISTI DINH Address: home [address] [facility], [phone] Name: JAYY ZAMUDIO Address: home [address] [place] [address], [phone]
--- OUTSIDE RECORDS SUMMARY | 2023-06-01 07:45 | External Medical Summary | Continuity of Care Document ---
Author Name Unknown Organization [facility] [address] Address [address] [place], [place] [id number] Care Team Providers Care Certified First Assistant Name Role Phone Jil Hoang Jenny Primary Care Physician [phone] [facility] [id number] Date(s): 03/27/23 - 03/27/23 [facility] [address], [address] [place] [address] [phone] Encounter Diagnosis Tricuspid valve regurgitation(Discharge Diagnosis) - 03/27/23 Aortic valve sclerosis(Discharge Diagnosis) - 03/27/23 Throat discomfort(Discharge Diagnosis) - 03/27/23 HTN (hypertension)(Discharge Diagnosis) - 03/27/23 Discharge Disposition: Home or Self Care Attending Physician: MICHAEL Ledbetter Sarah A Allergies, Adverse Reactions, Alerts Substance Reaction Severity Status lisinopril cough Active Assessment and Plan Extracted from: Title:Cardiology Office Visit Note Author:MICHAEL Chaparro rd, Sarah A Date:03/27/23 Impression: 1. Throat discomfort with heavier exertion which does sound like angina. 2. Hypertension. 3. Hyperlipidemia. 4. History of prior lacunar infarcts, most recently 11/2019 involving the right cerebellum and the right posterior frontal lobe. 5. Echocardiogram at [facility] 06/12/22 with normal biventricular size and function, mild left ventricular hypertrophy, aortic valve sclerosis, mild tricuspid valve regurgitation. No resting wall motion abnormalities and aortic valve sclerosis. Mr. Wagner's murmur is documented in his December note. He actually has a quiet murmur over his tricuspid valve as well as aortic which lines up with his echo in May of aortic valve sclerosis and mild tricuspid valve regurgitation. We can repeat his echo at a year and if stable he does not need chronic imaging unless there is a change in symptoms. He does have a right bundle branch block on his EKG which he inquired about and I described the pathophysiology of. He denies snoring or day time sleepiness. His blood pressure is controlled. He notes that the throat discomfort he feels with very heavy lifting goes away after about 5 seconds on its own. I asked him to let us know if it becomes more frequent or he starts to notice it with his usual activities. For now he should listen to his body and take a break if he is having neck discomfort as it may be an anginal equivalent. We discussed that there is nomortality benefitfor aggressive workup for this ie. catheterization as long as his echo stays stable and his symptoms are not progressive. He is on appropriate cad medications with antiplatelet, statin, and BERNA inhibitor. He will return to the clinic in June. He sees Jennie Stock later this month for his yearly visit so I will defer labs to her at that time. Immunizations Given and Recorded Vaccine Date Status [...] TAKE ONE TABLET BY MOUTH DAILY, Pharmacy: [facility] #[id number] Start Date: 06/29/22 Status: Ordered atorvastatin 40 mg oral tablet Start: 10/31/22 11:22:00 EDT, See Instructions, Disp# 90 tab, Refills: 3, take 1 tablet by mouth daily, Pharmacy: [facility] #[id number] Start Date: 10/31/22 Status: Ordered clopidogrel 75 mg oral tablet Start: 11/21/22 12:58:00 EDT, See Instructions, Disp# 90 tab, Refills: 3, take 1 tablet by mouth daily, Pharmacy: [facility] #[id number] Start Date: 11/21/22 Status: Ordered diclofenac 1% topical gel Start: 03/13/23 9:26:00 EDT, See Instructions, Disp# 300 g, Refills: 1, apply topically 4 grams TO THE LEFT KNEE FOUR TIMES A DAY, Pharmacy: [facility] #[id number] Start Date: 03/13/23 Status: Ordered losartan 50 mg oral tablet Start: 09/25/22 13:09:00 EDT, See Instructions, Disp# 180 tab, Refills: 3, take 1 tablet by mouth twice a day, Pharmacy: [facility] #[id number] Start Date: 09/25/22 Status: Ordered multivitamin Start: 04/27/20 9:13:00 EST, 1 tab, PO, Daily Start Date: 04/27/20 Status: Ordered pantoprazole 40 mg oral delayed release tablet Start: 07/16/22 17:25:00 EST, See Instructions, Disp# 180 tab, Refills: 3, TAKE ONE TABLET BY MOUTHTWICE DAILY, Pharmacy: [facility] #[id number] Start Date: 07/16/22 Status: Ordered terazosin 1 mg oral capsule Start: 02/15/23 15:33:00 EDT, 1 cap, PO, Daily, Disp# 90 cap, Refills: 3, Pharmacy: [facility] #[id number] Start Date: 02/15/23 Stop Date: 02/10/24 Status: Ordered Mental Status 03/27/23 Barriers to Learning one year None evide nt Mandatory Health Literacy Documentation Yes Health Literacy Communication Barriers N ever Primary Language Wallisian Problem List Condition Confirmation Course Effective Dates [...] Effective Dates Health Status Clinical Service Informant Tricuspid valve regurgitation Discharge Diagnosis 03/27/23 Non-Specified Throat discomfort Discharge Diagnosis 03/27/23 Non-Specified Aortic valve sclerosis Discharge Diagnosis 03/27/23 Non-Specified HTN (hypertension) Discharge Diagnosis 03/27/23 Non-Specified Procedures Procedure Date Related Diagnosis Body Site [...] surgical removal foreign body left eye Completed [address] [place] [address] Impression: 1. No acute fracture or dislocation [...] tube 2 cm above the sobeida. 5[facility] Impression: 1. 9.1 cm left renal cyst. No solid renal lesion 2. [facility]: 1. No radiopaque foreign bodies identified within the orbits 7No convincing evidence of acute displaced right rib fracture Multiple old Right rib fractures. No acute cardiopulmonary disease. 8[facility] Impression: 1. Degenerative changes without acute fracture or subluxation identified 9No acute cardiopulmonary findings. No change in appearance of the chest. 10[facility] Impression: 1. Punctate nonobstructing left renal calculus 2. 8.4 cm left renal cyst 3. Cholelithiasis 4. No evidence of bowel obstruction. No evidence of free air 5. Right internal hernia and multiple fat-containing ventral hernias 11[facility] Impression: 1. No active disease in the chest 12No acute or inflammatory findings, post-op changes of sigmoid colon w/colocolonic anastamosis, no obstruction, moderate colonic fecal retention, cardiolmegaly, hiatal hernia, hepatomaly, hepatic steatosis, mild splenomegaly 13[facility] Impression: 1. Age related changes as above with no acute intracranial abnormality [facility] Impression: 1. No acute intracranial abnormalities 15[facility] Impression: 1. No acute abnormalities. No [...] [facility] [place] Vital Signs Most recent to oldest [Reference Range]: 1 Patient Weight 87 kg (03/27/23 8:23 AM) Heart Rate 70 bpm (03/27/23 8:23 AM) Blood Pressure 114/62mmHg (03/27/23 8:23 AM) BP Location # 1 Right Arm (03/27/23 8:23 AM) Social History Social History Type Response Smoking Status Never smoked cigaret eve Sex Male Cardiology Outpatient Note * MICHAEL Ledbetter Sarah A: PERFORM Event Display: Cardiology Outpt Note Authored Date: [id number] Primary Care Provider MD Viktor, Jil Alvarado [facility] he has a heart [facility]. History of Present Illness Mr. Wagner presents for evaluation of heart murmur. He was seen at the [facility] for his initial intake to establish with them. The nurse doing his intake auscultated a murmur and suggested hesee his factory representative. He has had no changes in symptomssince his visit in December. Noedema in his lower extremities. No shortness of breath. He continues to be very active outsidewith heavier exertion activities such as splitting wood. He does at times with really heavylifting he feel a tightness in his throatlike he has something stuck in his throat. It goes away after about 5 secondseven if he isstill exerting himself. No chest discomfort. Review of Systems All other systems reviewed and negative except as discussed in the [facility] Physical Exam Vitals & Measurements HR:70(Monitored) BP:114/62 SpO2:96% WT:87kg WT:87.000kg(Dosing) Physical Examination General: Alert and oriented, No acute distress. Neck: No jugular venous distention. Respiratory: Lungs are clear to auscultation, Respirations are non-labored. Cardiovascular: Normal rate, Regular rhythm,2/6 rusb early peaking systolicmurmur, llsb 2/6 systolic murmur, No edema. Integumentary: Warm, Dry, [place] Neurologic: Alert, Oriented. Cognition and Speech: Speech clear and coherent. Psychiatric: Cooperative, Appropriate mood & affect. Assessment/Plan Impression: 1. Throat discomfort with heavier exertion which does sound like angina. 2. Hypertension. 3. Hyperlipidemia. 4. History of prior lacunar infarcts, most recently 11/2019 involving the right cerebellum and the right posterior frontal lobe. 5. Echocardiogram at [facility] 06/12/22 with normal biventricular size and function, mild left ventricular hypertrophy, aortic valve sclerosis, mild tricuspid valve regurgitation. No resting wall motion abnormalities and aortic valve sclerosis. Mr. Wagner's murmur is documented in his December note. He actually has a quiet murmur over his tricuspid valve as well as aortic which lines up with his echo in May of aortic valve sclerosis and mild tricuspid valve regurgitation. We can repeat his echo at a year and if stable he does not need chronic imaging unless there is a change in symptoms. He does have a right bundle branch block on his EKG which he inquired about and I described the pathophysiology of. He denies snoring or day time sleepiness. His blood pressure is controlled. He notes that the throat discomfort he feels with very heavy lifting goes away after about 5 seconds on its own. I asked him to let us know if it becomes more frequent or he starts to notice it with his usual activities. For now he should listen to his body and take a break if he is having neck discomfort as it may be an anginal equivalent. We discussed that there is nomortality benefitfor aggressive workup for this ie. catheterization as long as his echo stays stable and his symptoms arenot progressive. He is on appropriate cad medications with antiplatelet, statin, and BERNA inhibitor. He will return to the clinic in June. He sees Jennie Stock later this month for his yearly visit so I will defer labs to her at that time. 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 Lives with:Spouse Living situation:Home/Independent Other risks [...] Signature on File CC: Jil Hoang MD [address] [place] [id number] CC: Jennie Stock PA-C,[address] [address] Electronically Reviewed/Signed by: MICHAEL Trujillo Author Signature Dt/Tm:03/27/2023 09:17 AM [facility] Patient Care team information Care Team Personnel Name: MD Farshad, John Palacios Position: Physician - Family Med Member Role: Lifetime Relationship Address: Address: [address] [facility] [address] [place] [address] Name: SIVAKUMAR Alcazar Ashley Position: Physician Coding Quality Analyst - Neurosurgery Member Role: Lifetime Relationship Address: Address: [address] [facility] [address] [place] [address] [place] Name: MD Viktor, Jil Alvarado Position: Physician - Family Med Member Role: Primary Care Provider Address: Address: [address] [place] [address] Care Team Related Persons Name: CRISTI DINH Address: home [address] [facility], [id number] Name: JAYY WAGNER Address: home [address] [facility], [id number]
--- OUTSIDE RECORDS SUMMARY | 2023-06-01 07:45 | External Medical Summary | Continuity of Care Document ---
Author Name Unknown Organization [place] [id number] [facility] Address [address] [place] [id number] Care Team Providers Care Software Requirements Engineer Name Role Phone ElvaJennie roper Denia Primary Care Physician [phone] [id number] Date(s): 05/27/23 - 05/27/23 [facility] [address] [place] [address] [phone] Encounter Diagnosis Dilated aortic root(Discharge Diagnosis) - 05/28/23 Discharge Disposition: Home or Self Care Attending Physician: MICHAEL Ledbetter Sarah A Referring Physician: MICHAEL Ledbetter Sarah A Allergies, Adverse Reactions, Alerts Substance Reaction Severity Status lisinopril cough Active Immunizations Given and Recorded Vaccine Date Status [...] TAKE ONE TABLET BY MOUTH DAILY, Pharmacy: [facility] #[id number] Start Date: 06/29/22 Status: Ordered atorvastatin 40 mg oral tablet Start: 10/31/22 11:22:00 EDT, See Instructions, Disp# 90 tab, Refills: 3, take 1 tablet by mouth daily, Pharmacy: [facility] #[id number] Start Date: 10/31/22 Status: Ordered clopidogrel 75 mg oral tablet Start: 11/21/22 12:58:00 EDT, See Instructions, Disp# 90 tab, Refills: 3, take 1 tablet by mouth daily, Pharmacy: [facility] #[id number] Start Date: 11/21/22 Status: Ordered diclofenac 1% topical gel Start: 03/13/23 9:26:00 EDT, See Instructions, Disp# 300 g, Refills: 1, apply topically 4 grams TO THE LEFT KNEE FOUR TIMES A DAY, Pharmacy: [facility] #[id number] Start Date: 03/13/23 Status: Ordered losartan 50 mg oral tablet Start: 09/25/22 13:09:00 EDT, See Instructions, Disp# 180 tab, Refills: 3, take 1 tablet by mouth twice a day, Pharmacy: [facility] #[id number] Start Date: 09/25/22 Status: Ordered multivitamin Start: 04/27/20 9:13:00 EST, 1 tab, PO, Daily Start Date: 04/27/20 Status: Ordered pantoprazole 40 mg oral delayed release tablet Start: 07/16/22 17:25:00 EST, See Instructions, Disp# 180 tab, Refills: 3, TAKE ONE TABLET BY MOUTHTWICE DAILY, Pharmacy: [facility] #[id number] Start Date: 07/16/22 Status: Ordered terazosin 1 mg oral capsule Start: 02/15/23 15:33:00 EDT, 1 cap, PO, Daily, Disp# 90 cap, Refills: 3, Pharmacy: [facility] #[id number] Start Date: 02/15/23 Stop Date: 02/10/24 Status: Ordered Problem List Condition Confirmation Course [...] 11/18/03 Active Vitamin D deficiency Confirmed Active /09/10- XR Chest 1 View FINDINGS: Tortuosity of the thoracic aorta with atherosclerotic calcification. 2H. pylori neg 3left back 4mother , at 79 5right cheek, left ear 6H/O Diagnosis Diagnosis Type Effective Dates Health Status Cl inical Service Informant Dilated aortic root Discharge Diagnosis 05/28/23 Non-Specified Procedures Procedure Date Related Diagnosis Body [...] surgical removal foreign body left eye Completed [address] [place] [address] Impression: 1. No acute fracture or dislocation [...] No solid renal lesion 2. Cholelithiasis 6[facility] Impression: 1. No radiopaque foreign bodies identified [...] hernia, hepatomaly, hepatic steatosis, mild splenomegaly 13[facility] Impression: 1. Age related changes as above with no acute intracranial abnormality [facility] Impression: 1. No acute intracranial abnormalities 15[facility] Impression: 1. No acute abnormalities. No fracture seen 16No acute intracranial abnormality. 17Moderate degenerative change. No acute bony abnormality. 18no active disease. 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 20laser 21for perforated diverticulitis 22tubular adenomas 23right 24at [facility] on 2015 Results Radiology Reports * Exam Date Time Procedure Performing Provider Status 05/27/23 9:52 AM Echo TransTHORacic TTE Complete Vanessa Orellana; Final Notes: (Echo TransTHORacic TTE Complete) Reason For Exam: tricuspid valve regurg Echo TransTHORacic TTE Complete Report Signatures Finalized by Dr. Dominic Sexton MD on 05/27/2023 05:02 PM [place] Act 112: Yes - Discussed with patient Summary 1. Normal left ventricular size and systolic function with no regional wall motion abnormalities. 2. Ejection fraction as calculated by Biplane Simpsons method is 65%. 3. Mild concentric left ventricular hypertrophy. 4. Grade I diastolic dysfunction of the left ventricle (impaired relaxation pattern) with elevated left atrial pressure. 5. Moderately dilated right ventricle with normal systolic function. 6. Mild biatrial size. 7. Dilated aortic root (4.7 cm) and ascending aorta (4.2 cm). 8. Calcified, tricuspid aortic valve without insufficiency. mild aortic stenosis (LVOT/AV ratio is 0.56). 9. Moderate tricuspid regurgitation. 10. Normal estimated pulmonary artery pressures, estimated PASP is 31 mmHg. 11. No prior in-house studies for comparison. Patient Info Name: JOYCE ZAMUDIO Age: 83 years : 1940 Gender: Male Ht: 175 cm Wt: 86 kg BSA: 2.07 m2 HR: 64 bpm BP: 138 / 66 mmHg Heart Rhythm: Sinus Rhythm Technical Quality: Good Exam Date: 05/27/2023 9:02 AM Exam Location: [facility] Patient Status: Outpatient Staff Ordering Physician: Roxann Ledbetter Cop Breaker: Vanessa Orellana RDCS, T Attending Physician: Roxann Ledbetter Study Info CPT 28911 - Indications R011 - Cardiac murmur, unspecified Procedure(s) * A complete two-dimensional, color flow and Doppler transthoracic echocardiogram was performed. Exam Type: Cardiac Basic Left Ventricle Normal left ventricular size and systolic function with no regional wall motion abnormalities. Ejection fraction as calculated by Biplane Simpsons method is 65%. Mild concentric left ventricular hypertrophy. Grade I diastolic dysfunction of the left ventricle (impaired relaxation pattern) with elevated left atrial pressure. Right Ventricle Moderately dilated right ventricle with normal systolic function. TAPSE is normal, 2.3 cm. Left Atrium Mildly dilated left atrium. Right Atrium Mildly dilated right atrium. Atrial Septum Appears intact. Aortic Valve Calcified, tricuspid aortic valve without insufficiency. mild aortic stenosis (LVOT/AV ratio is 0.56). Pulmonic Valve Unremarkable pulmonic valve. Mitral Valve Mildly calcified mitral valve annulus without stenosis. Trace to mild mitral valve regurgitation. Tricuspid Valve Moderate tricuspid regurgitation. Normal estimated pulmonary artery pressures, estimated PASP is 31 mmHg. Pericardium/Pleural No pericardial effusion. Inferior Vena Cava Normal IVC size and inspiratory collapse. Estimated right atrial pressure is 3 mmHg. Aorta The aortic root at the sinus of Valsalva is dilated, measuring 4.7 cm with an index of 2.29 cm/m2. The ascending aorta is dilated, measuring 4.2 cm with an index of 2.02 cm/m2. The aorta arch is normal in size, measuring 2.8 cm. Left Ventricular Outflow Tract Name Value Normal LVOT 2D LVOT Diameter 2.6 cm LVOT Doppler LVOT Peak Velocity 1.08 m/s LVOT Mean Gradient 2 mmHg LVOT VTI 26.60 cm LVOT VTI/AV VTI Ratio 0.56 LVOT Stroke Volume 145.81 ml LVOT Stroke Volume Index 0.07 l/m2 LVOT Cardiac Output 9.33 l/min LVOT Cardiac Index 4.52 L/min/m2 Pulmonic Valve Name Value Normal PV 2D RVOT Diameter (2D) 2.9 cm 1.7-2.7 RVOT Doppler RVOT Peak Velocity 0.51 m/s PV Doppler PV Peak Velocity 1.10 m/s Mitral Valve Name Value Normal MV Doppler MV Peak Velocity 1.16 m/s MV Peak Gradient 5 mmHg MV Mean Gradient 2 mmHg MV VTI 39.47 cm MV PHT 63 ms MV Area (Cont Eq VTI) 3.7 cm2 MV Area Index (Cont Eq VTI) 1.79 cm2/m2 MV Diastolic Function MV E Peak Velocity 0.97 m/s <=0.50 MV A Peak Velocity 1.07 m/s MV E/A 0.90 <=0.80 MV Decel Time 218 ms MV Annular TDI MV Septal s' Velocity 5.57 cm/s MV Septal e' Velocity 4.05 cm/s >=7.00 MV E/e' (Septal) 23.8 <=8.0 MV Lateral s' Velocity 8.66 cm/s MV Lateral e' Velocity 5.98 cm/s >=10.00 MV E/e' (Lateral) 16.14 <=8.00 MV e' Average 5.02 MV E/e' (Average) 19.98 <=14.00 Tricuspid Valve Name Value Normal TV Regurgitation Doppler TR Peak Velocity 2.65 m/s <=2.80 Estimated PAP/RSVP RA Pressure 3 mmHg <=5 PA Systolic Pressure 31 mmHg <40 TV Diastolic Function TV E Peak Velocity 0.30 m/s TV A Peak Velocity 0.31 m/s TV E/A 0.99 0.80-2.00 TV Decel Time 248 ms >=120 TV Annular TDI TV Lateral Kristyn s' Velocity 11.1 cm/s 9.5-18.7 TV Lateral Kristyn e' Velocity 10.4 cm/s <7.8 TV E/e' 2.89 2.00-6.00 Aorta Name Value Normal Ascending Aorta Sinus of Valsalva Diameter 4.7 cm 3.1-3.7 Sinus of Valsalva Index 2.29 cm/m2 1.50-1.90 Prox Asc Ao Diameter 4.2 cm 2.6-3.4 Prox Asc Ao Diameter Index 2.02 cm/m2 1.30-1.70 Thoracic Aorta Ao Arch Diameter 2.8 cm Desc Ao Peak Velocity 0.53 m/s Desc Ao Peak Gradient 1 mmHg Venous Name Value Normal IVC/SVC IVC Diameter (Insp 2D) 0.7 cm IVC Diameter (Exp 2D) 1.9 cm <=2.1 IVC Diameter Percent Change (2D) 61 % >=50 Aortic Valve Name Value Normal AV Doppler AV Peak Velocity 1.89 m/s <2.00 AV Mean Gradient 8 mmHg <20 AV VTI 47.90 cm AV Area (Cont Eq VTI) 3.0 cm2 >=2.0 AV Area Index (Cont Eq VTI) 1.47 cm2/m2 AV Area (Cont Eq Lee) 3.1 cm2 AV Area Index (Cont Eq Lee) 1.52 cm2/m2 AV V1/V2 Ratio 0.57 AV Regurgitation 2D LVOT Area 5.5 cm2 Ventricles Name Value Normal LV Dimensions 2D/MM IVS Diastolic Thickness (2D) 1.2 cm 0.6-1.0 LVID Diastole (2D) 4.2 cm 3.6-5.6 LVIW Diastolic Thickness (2D) 1.2 cm 0.6-1.0 LVID Systole (2D) 2.6 cm 2.5-4.0 LVOT Diameter 2.6 cm LV Mass (2D Cubed) 179.22 g 88.00-224.00 LV Mass Index (2D Cubed) 0.01 g/cm2 0.00-0.01 Relative Wall Thickness (2D) 0.56 LV Fractional Shortening/Ejection Fraction 2D/MM LV Fractional Shortening (2D) 37 % 25-43 LV Diastolic Volume (4C MOD) 93 ml LV Diastolic Volume (2C MOD) 84 ml LV Diastolic Volume (BP MOD) 88 ml 62-150 LV Diastolic Volume Index (BP MOD) 42.72 ml/m2 34.00-74.00 LV Systolic Volume (BP MOD) 33 ml 21-61 LV Systolic Volume Index (BP MOD) 16.03 ml/m2 11.00-31.00 LV EF (BP MOD) 65 % 57-68 LV SV (BP MOD) 55.17 ml RV Dimensions 2D/MM RV Basal Diastolic Dimension 4.7 cm 2.5-4.1 TAPSE 2.3 cm >=1.7 Atria Name Value Normal LA Dimensions LA Area (4C) 23.8 cm2 LA Length (4C) 6.0 cm LA Area (2C) 23.7 cm2 LA Length (2C) 5.8 cm LA Volume (4C A-L) 79.81 ml LA Volume (2C A-L) 81.90 ml LA Volume (BP A-L) 82 ml 18-58 LA Volume Index (BP A-L) 39.68 ml/m2 <=34.00 RA Dimensions RA Area (4C) 19.8 cm2 <=18.0 Final Signed by:DO Sexton Jason D Signed (Electronic Signature):05/27/2023 9:02 a Social History Social History Type Response Smoking Status Never smoked cigaret eve Sex Male Patient Care team information Care Team Personnel Name: MD Farshad, John Palacios Position: Physician - Family Med Member Role: Lifetime Relationship Address: Address: [address] [facility] [address] [place] [address] Name: SIVAKUMAR Alcazar Ashley Position: Physician Safety Manager - Neurosurgery Member Role: Lifetime Relationship Address: Address: [address] [facility] [address] [place] [address] Name: SIVAKUMAR Stock Jessica A Position: Physician Asst Exmpt - Family Med Member Role: Primary Care Provider Address: Address: [address] [facility] [address] [place] [address] Care Team Related Persons Name: CRISTI DINH Address: home [address] [facility], [id number] Name: JAYY ZAMUDIO Address: [address] [facility], [id number]
--- OUTSIDE RECORDS SUMMARY | 2023-06-01 07:45 | External Medical Summary | Summary of Care ---
Author Name Unknown Organization [facility] [address] [facility] [address] Phone [phone] Care Team Providers Care Bush Hog Operator Name Role Phone Jil Hoang MD Primary Care Provider [phone] Reason for Visit * Reason Comments Skin Check Upper body skin chec k. Encounter Details Date Type Department Care Team Description 03/08/[address] [facility] [address] [facility] [place] [address] Zohreh East MD [address] [facility] [place] [id number] Scar*; Hx of actinic keratosis; Hx of nonmelanoma skin cancer; AK (actinic keratosis) Allergies Active Allergy Reactions Severity Noted Date Comments Lisinopril 02/10/2020 Makes him cough documented as of this encounter (statuses as of 03/08/2023) Medications Medication Sig Dispensed Refills Start Date End Date Status LOSARTAN POTASSIUM 50 MG PO TABS Take by mouth 2 times a day. 0 09/09/2014 Active clopidogrel (PLAVIX) 75 MG TabletIndications:ta kes in the evening Indications: takes in the evening 0 01/26/2020 Active pantoprazole (PROTONIX) 40 MG TBEC 2 times a day. 0 12/02/2019 Active atorvaSTATin (LIPITOR) 40 MG TabletIndications:ta kes in the evening Indications: takes in the evening 0 12/30/2019 Active amLODIPine (NORVASC) 5 MG TabletIndications:ta kes in the evening 10 mg. Indications: takes in the evening 0 01/17/2020 Active Fluorouracil 5 % External Cream (Efudex)Indications: AK (actinic keratosis) apply to affected area of scalp nightly for 2 weeks 40 g 1 12/08/2020 Active Additional Information Patient not taking.Reported on 04/09/2022 Terazosin HCl 1 MG Oral Capsule (Hytrin) 0 03/23/2022 Active Centrum Adults Oral Tablet Take by mouth . 0 Active Gabapentin 100 MG Oral Capsule (Neurontin) Take 1 Capsule by mouth in the morning and 1 Capsule at noon and 1 Capsule before bedtime. 0 08/14/2022 Active documented as of this encounter (statuses as of 03/08/2023) Active Problems Problem Noted Date Hx of actinic keratosis 05/30/2015 Hx of basal cell carcinoma 04/07/2014 Overview: BCC R nasal sidewall 07/2018, R forehead (BCC) and L confucianist (basoSCC) 09/2014, upper back BCC 03/2014 Diverticulitis of colon 10/04/2006 ADVANCE DIRECTIVE INFORMATION 03/08/2006 Overview: Yes, Patient instructed to provide copy of advance directive for provider to review and to be scanned into Electronic Medical Record documented as of this encounter (statuses as of 03/08/2023) Social History Tobacco Use Types Packs/Day Years Used Date Smoking Tobacco: Never Cigarettes 0 0 Qu it: 10/23/1975 Cigars Smokeless Tobacco: Never Alcohol Use Standard Drinks/Week Comments No 0 (1 standard drink = 0.6 oz pur e alcohol) Sex Assigned at Date Recorded Not on file Job Start Date Occupation Industry Not on file Not on file Not on file documented as of this encounter Progress Notes * Zohreh East MD - 03/08/2023 9:20 AM EDT SUBJECTIVE: History of Present Illness: Ronak Wagner is a 82 year old male seen today for follow up - skin check (upper body). Date Last Appointment: 09/14/2022 (in office), Visit date not found (telemedicine) Sore spots on R confucianist x months Hx NMSC and AK - BCC R nasal sidewall 07/2018, R forehead (BCC) and L confucianist (basoSCC) 09/2014, upperback BCC 03/2014 Hx AK, Efudex REVIEW OF SYSTEMS: SKIN: No other new or changing moles. HEME/LYMPH: No new or enlarging lumps or bumps. MEDICA TIONS: Current Outpatient Medications Medication Sig Dispense Refill LOSARTAN POTASSIUM 50 MG PO TABS Take by mouth 2 times a day. clopidogrel (PLAVIX) 75 MG Tablet Indications: takes in the evening pantoprazole (PROTONIX) 40 MG TBEC 2 times a day. atorvaSTATin (LIPITOR) 40 MG Tablet Indications: takes in the evening amLODIPine (NORVASC) 5 MG Tablet 10 mg. Indications: takes in the evening Fluorouracil 5 % External Cream (Efudex) apply to affected area of scalp nightly for 2 weeks (Patient not taking: Reported on 04/09/2022 ) 40 g 1 Terazosin HCl 1 MG Oral Capsule (Hytrin) Centrum Adults Oral Tablet Take by mouth . Gabapentin 100 MG Oral Capsule (Neurontin) Take 1 Capsule by mouth in the morning and 1 Capsule at noon and 1 Capsule before bedtime. No current facility-administered medications for this visit. ALLERG IES: Lisinopril OBJECTIVE: GEN: Healthy, alert, no distress, appears oriented, pleasant, and cooperative. SKIN: Detailed exam of hair, face including lids and lips, neck, chest, abdomen, back, bilateral upper ext. (arm, hand, fingers), and palpation of scalp completed and are normal except: 1. R confucianist and sideburn, R preauricular - keratotic firm papules 2. Scars - face, upper body ASSESS MENT/PLAN: 1. HAKs - After obtaining verbal informed consent and confirming lesion with patient, it was removed by curettage destruction x 5. The wound was bandaged. Post op care discussed. 2. Scars - Hx NMSC - no evidence of recurrence Discussed sun protection with patient including proper use of sunscreens and protective clothing. ABCDs explained. Follow-up: 3 months check upper body There were no barriers tolearning and no other pain was related to today's visit. The patient and/or person accompanying patient demonstrates understanding of the visit and treatment. Zohreh L Rosamilia, MD 03/08/2023 9:21 AM documented in this encounter Nursing Notes * Era Bingham LPN - 03/08/2023 8:53 AM EDT Patient identified by name and date of . Do you have any concerns about pain management for today's visit? No Living Will or Advance Directive for Health Care as noted on problem list. [employer] is a way you can talk to your provider online through e-mail. Would you like to sign up? I can activate it for you? ALREADY ACTIVE Chief Complaint Patient presents with Skin Check Upper body skin check. documented in this encounter Plan of Treatment Upcoming Encounters Date Type Specialty Care Team Description 06/10/2023 Office Visit Dermatology Zohreh East MD [address] [place] [id number] Scheduled Procedures Name Priority Associated Diagnoses Date/Ti me COLONOSCOPY FLEXIBLE PROXIMA L DIAGNOSTIC Recall Family history of colon cancer Health Maintenance Due Date Last Done Comments Depression Screening 1952 DTaP,Tdap,and Td Vaccines (1 - Tdap) 1957 Pneumococcal Vaccine: 65+ Years (1 - PCV) 2003 Zoster Vaccines (3 of 3) 07/02/2019 05/07/2019, 09/23 COLONOSCOPY-EVERY 5 YRS AGES 18-100 10/10/2020 10/11/2015, 10/11/2015, 12/01/2009, Additional history exists COVID-19 Vaccine (4 - Pfizer series) 05/23/2021 03/28/2021, 08/20/2020, 07/30/2020 Influenza Vaccine (FLU shot) (#1) 2023 03/27/2020, 05/07/2019, 04/08/2018, Additional history exists GARDASIL-HPV IMMUNIZATION SERIES Aged Out No longer eligible based on patient's age to complete this topic Hepatitis B Aged Out No longer eligi ble based on patient's age to complete this topic MENINGOCOCCAL (MENACTRA/MENVEO) Aged Out No longer eligible based on patient's age to complete this topic documented as of this encounter Medical Devices Implanted Type Area Associate Sales Manager Device Identifier Shelf Expiration Date Model / Serial / Lot Lens Intraoc 20.0 - [id number] - [id number] Implanted:Qty: 1 on 08/02/2020 by Fede Obregon MD at OR [facility] Right: Eye [employer] 12/21/2024 [id number] / [id number] / [id number] Lens Intraoc 21.5 - [id number] - [id number] Implanted:Qty: 1 on 08/16/2020 by Fede Obregon MD at OR [facility] Left: Eye [employer] 01/21/2025 [id number] / [id number] / [id number] documented as of this encounter Visit Diagnoses Diagnosis Scar- Primary Scar condition and fibrosis of skin Hx of actinic keratosis Personal history of diseases of skin and subcutaneous tissue Hx of nonmelanoma skin cancer Personal history of other malignant neoplasm of skin AK (actinic keratosis) Actinic keratosis documented in this encounter Care Teams Bush Hog Operator Relationship Specialty Start Date End Date Jil Hoang MD [facility] [address] [address] PCP - General Family Medicine 07/22/17 documented as of this encounter
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
[2023-06-01] MEDS ORDERED: OPTIRAY 320 125ml IV ONE (08:16)
[2023-06-01 08:17] LABS: iSTAT Creatinine 1.3 mg/dl (0.6-1.3); iSTAT Hemoglobin 13.3 g/dl (14.0-18.0); iSTAT Ionized Calcium 1.26 mmol/l (1.12-1.32); iSTAT Potassium 4.3 mmol/L (3.3-5.0)
[2023-06-01 08:19] LABS: Basophils # (auto) 0.05 K/uL (0.00-0.20); Basophils % (auto) 0.9 %; Eosinophils # (auto) 0.24 K/uL (0.00-0.50); Eosinophils % (auto) 4.5 %; Hematocrit (blood only) 40.7 % (42.0-52.0); Hemoglobin 13.4 g/dl (14.0-18.0); Immature Granulocytes # (auto) 0.01 K/uL (0.01-0.20); Immature Granulocytes % (auto) 0.2 %; Lymphocytes # (auto) 1.44 K/uL (1.20-3.40); Lymphocytes % (auto) 27.2 %; Mean Corpuscular Hemoglobin 28.9 pg (25.0-34.0); Mean Corpuscular Hgb Conc 32.9 g/dL (32.0-36.0); Mean Corpuscular Volume 87.9 fL (80.0-100.0); Mean Platelet Volume 10.2 fL (9.4-12.4); Monocytes # (auto) 0.73 K/uL (0.11-0.59); Monocytes % (auto) 13.8 %; Neutrophils # (auto) 2.83 K/uL (1.40-6.50); Neutrophils % (auto) 53.4 %; Platelet Count 169 K/uL (130-400); RDW Coefficient of Variation 12.7 % (11.5-14.5); RDW Standard Deviation 40.8 fL (36.4-46.3); Red Blood Count 4.63 M/uL (4.70-6.10)
--- NOTE | 2023-06-01 08:31 | CT Scan Report ---
HEAD & NECK CTA HISTORY: Left-sided weakness. neuro deficit, acute stroke suspected TECHNIQUE: Multiaxial CT images of the head were performed following the intravenous administration o f contrast to evaluate the major cerebral vessels. Multiaxial CT images of the neck were also perform ed following the intravenous administration of contrast to evaluate the major cervical vessels. 3D/AZ P images were also obtained. Sagittal and coronal reformats were reviewed. A dose lowering technique was utilized adhering to the principles of ALARA. COMPARISON: Head and neck CTA 12/01/2019. Hypoplastic distal left vertebral artery again noted. There is a persistent left posterior circulation. FINDINGS: There is no mass, hematoma, midline shift, or acute infarct. Visualized intracranial internal carotid arteries, distal vertebral arteries, and basilar artery are widely patent. There is no significant s tenosis, occlusion, or aneurysm seen within the bilateral ACAs, MCAs, or rn office. The major dural venous sinuses appear patent. The aortic arch and proximal great vessels are widely patent. Focal narrowing of the proximal right vertebral artery up to 70%, unchanged. Otherwise, the remaining bilateral vertebral arteries are pat ent. The left vertebral artery is hypoplastic. Approximate 40% narrowing within the mid left common c arotid artery due to the calcified plaque. The right common carotid artery is widely patent. Mild to moderate calcified plaque within the bilateral carotid bifurcations without significant stenosis. No evidence for a dissection or occlusion. IMPRESSION: 1. No significant stenosis, occlusion, or aneurysm within the [place]. 2. No significant stenosis within bilateral internal carotid arteries. 3. Hypoplastic left vertebral artery, unchanged. 4. Approximately 70% focal stenosis within the proximal right vertebral artery, unchanged. 5. Approximately 40% narrowing within the mid left common carotid artery, unchanged ACT 112: Negative or not required by law. Electronically signed by: Bandar Swartz M.D. 06/01/2023 8:30 AM
[2023-06-01 08:35] LABS: BUN Creatinine Ratio 16.1 (10-20); Creatinine Clr Calc Pharmacy 49.9 ml/min; Est GFR (African American) 64.8 ml/min; Est GFR (Non-African American) 55.9 ml/min; Potassium 4.3 mmol/L (3.5-5.1)
[2023-06-01 08:36] LABS: Albumin Globulin Ratio 1.9 (0.9-2); Albumin Level 4.3 gm/dl (3.4-5.0); Bilirubin,Total 0.7 mg/dl (0.2-1.0); Globulin 2.3 gm/dl (2.5-4.0); Total Protein 6.6 gm/dl (6.0-8.3)
[2023-06-01 08:42] LABS: Troponin I High Sensitivity 5.2 pg/ml (0-20)
[2023-06-01] MEDS ORDERED: ASPIRIN CHEW 324 MG PO STA (08:42)
--- NOTE | 2023-06-01 08:48 | CT Scan Report ---
HEAD CT NONCONTRAST CT DOSE: HISTORY: Left-sided weakness. neuro deficit, acute stroke suspected TECHNIQUE: Multiaxial CT images of the head were performed without the use of intravenous contrast. A utomated exposure control was utilized for this study. A dose lowering technique was utilized adheri ng to the principles of ALARA. Comparison: Brain MRI 12/01/2019. Findings: The paranasal sinuses and mastoid air cells are clear. The calvarium and skull base are int act. There is no mass, hematoma, midline shift, acute infarct. White matter hypodensity is nonspecifi c but suggestive of microvascular ischemic change. The ventricles and sulci demonstrate mild age-rela hipolito involutional changes. Old small lacunar infarct within the right cerebellar hemisphere. Impression: No acute infarct or intracranial hemorrhage. ACT 112: Negative or not required by law. Electronically signed by: Bandar Swartz M.D. 06/01/2023 8:46 AM
[2023-06-01 08:57] LABS: INR 0.9 (0.9-1.1); Partial Thromboplastin Ratio 0.9; Partial Thromboplastin Time 25 Seconds (21-31); Prothrombin Time 10.4 Seconds (9.0-12.0)
--- NOTE | 2023-06-01 09:01 | CT Scan Report ---
HEAD & NECK CTA HISTORY: Left-sided weakness. neuro deficit, acute stroke suspected TECHNIQUE: Multiaxial CT images of the head were performed following the intravenous administration o f contrast to evaluate the major cerebral vessels. Multiaxial CT images of the neck were also perform ed following the intravenous administration of contrast to evaluate the major cervical vessels. 3D/ME P images were also obtained. Sagittal and coronal reformats were reviewed. A dose lowering technique was utilized adhering to the principles of ALARA. COMPARISON: Head and neck CTA 12/01/2019. Hypoplastic distal left vertebral artery again noted. There is a persistent left posterior circulation. FINDINGS: There is no mass, hematoma, midline shift, or acute infarct. Visualized intracranial internal carotid arteries, distal vertebral arteries, and basilar artery are widely patent. There is no significant s tenosis, occlusion, or aneurysm seen within the bilateral ACAs, MCAs, or dental amalgam processor. The major dural venous sinuses appear patent. The aortic arch and proximal great vessels are widely patent. Focal narrowing of the proximal right vertebral artery up to 70%, unchanged. Otherwise, the remaining bilateral vertebral arteries are pat ent. The left vertebral artery is hypoplastic. Approximate 40% narrowing within the mid left common c arotid artery due to the calcified plaque. The right common carotid artery is widely patent. Mild to moderate calcified plaque within the bilateral carotid bifurcations without significant stenosis. No evidence for a dissection or occlusion. IMPRESSION: 1. No significant stenosis, occlusion, or aneurysm within the [place]. 2. No significant stenosis within bilateral internal carotid arteries. 3. Hypoplastic left vertebral artery, unchanged. 4. Approximately 70% focal stenosis within the proximal right vertebral artery, unchanged. 5. Approximately 40% narrowing within the mid left common carotid artery, unchanged ACT 112: Negative or not required by law. Electronically signed by: Bandar Swartz M.D. 06/01/2023 8:30 AM
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
[2023-06-01 11:28] LABS: Appearance Urine Clear (Clear); Bilirubin Urine Negative (Negative); Blood Urine Negative (Negative); Color Urine Yellow; Glucose Urine UA Negative (Negative); Ketones Urine Negative (Negative); Leukocyte Esterase Urine Negative (Negative); Nitrite Urine Negative (Negative); Protein Urine Negative (Negative); Specific Gravity Urine 1.034 (1.000-1.030); Urobilinogen Urine Negative (Negative); pH Urine 6.5 (4.5-7.5)
--- NOTE | 2023-06-01 12:15 | Magnetic Resonance Report ---
Brain MRI WITHOUT CONTRAST HISTORY: Stroke symptoms. Left knee numbness. TECHNIQUE: Multiplanar multisequence MRI of the brain was performed without the use of contrast. COMPARISON STUDY: Head CT 06/01/2023. FINDINGS: Small focus of restricted diffusion within the right posterior frontal lobe at the high con vexity consistent with an acute infarct. There is an old small lacunar infarct within the right cereb ellar hemisphere. Mild atrophy and microvascular ischemic changes are again noted. There is no mass, hematoma, midline shift. The major vascular flow-voids at the skull base are well-maintained. Prior b ilateral lens replacement. Mild mucosal thickening within the left maxillary sinus. Trace right masto id effusion. IMPRESSION: A small acute infarct seen within the right posterior frontal lobe at the high convexity. ACT 112: Negative or not required by law. Electronically signed by: Bandar Swartz M.D. 06/01/2023 12:14 PM
[2023-06-01] MEDS ORDERED: PHARMACIST DISCHARGE MED REC CONSULT PRN (14:19)
[2023-06-01] MEDS ORDERED: ACETAMINOPHEN 325 MG TAB PO PRN (14:19)
[2023-06-01] MEDS ORDERED: LABETALOL HCL IV 5 MG/ML 20ML IV PRN (15:17)
[2023-06-01] MEDS ORDERED: LOSARTAN POTASSIUM 50 MG TAB PO SCH (17:00)
[2023-06-01] MEDS: ATORVASTATIN 40 MG TAB PO SCH (20:39)
[2023-06-01] MEDS: TERAZOSIN HCL 1 MG CAP PO SCH (20:39)
[2023-06-01] MEDS: PANTOprazole 40 MG TAB PO SCH (20:40)
[2023-06-01] MEDS: CLOPIDOGREL BISULFATE 75 MG TAB PO SCH (20:40)
[2023-06-01] MEDS ORDERED: amLODIPine BESYLATE 5 MG TAB PO SCH (21:00)
[2023-06-02 07:24] LABS: Basophils # (auto) 0.04 K/uL (0.00-0.20); Basophils % (auto) 0.7 %; Eosinophils # (auto) 0.26 K/uL (0.00-0.50); Eosinophils % (auto) 4.3 %; Hematocrit (blood only) 37.1 % (42.0-52.0); Hemoglobin 12.5 g/dl (14.0-18.0); Immature Granulocytes # (auto) 0.02 K/uL (0.01-0.20); Immature Granulocytes % (auto) 0.3 %; Lymphocytes # (auto) 1.47 K/uL (1.20-3.40); Lymphocytes % (auto) 24.3 %; Mean Corpuscular Hemoglobin 28.9 pg (25.0-34.0); Mean Corpuscular Hgb Conc 33.7 g/dL (32.0-36.0); Mean Corpuscular Volume 85.7 fL (80.0-100.0); Mean Platelet Volume 10.5 fL (9.4-12.4); Monocytes # (auto) 0.59 K/uL (0.11-0.59); Monocytes % (auto) 9.8 %; Neutrophils # (auto) 3.67 K/uL (1.40-6.50); Neutrophils % (auto) 60.6 %; Platelet Count 175 K/uL (130-400); RDW Coefficient of Variation 12.7 % (11.5-14.5); RDW Standard Deviation 39.8 fL (36.4-46.3); Red Blood Count 4.33 M/uL (4.70-6.10); White Blood Count 6.05 K/ul (4.8-10.8)
--- NOTE | 2023-06-02 07:28 | Hospitalist Progress Note ---
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 Atrovastatin, a.m. fasting lipid panel Outpatient stapler machine evaluation if atrial fibrillation is discovered with then recommend going to aspirin and anticoagulation over the Plavix itself. Head CT revealed NAF Head/neck CTA were unchanged; approximately 70% focal stenosis within the proximal right vertebral artery, and 40% narrowing within the left common carotid artery; however, this is unchanged from CTA H/N 11/2019 Brain MRI revealed a small acute infarct within the right posterior frontal lobe hold chemical DVT PPx for 24 hours in setting of stroke passed dysphagia screen in the ED Permissive HTN Echo on 12/01/2019 revealed no ASD, PFO, or evidence of cardiac shunting; will def er new echo for now PT/OT consulted Recommend short-term rehab stay patient is not supportive of this and the others his . (2) History of stroke: Plan: Hx of multifocal CVA on MRI 11/2019 Continue Aspirin, Plavix (3) HTN (hypertension): Plan: Hold amlodipine, losartan on 06/01 Permissive HTN (as above) Labetalol 5mg IV as needed for SBP>220 or DBP>120 (4) BPH with obstruction/lower urinary tract symptoms: Plan: Continue terazosin (5) GERD (gastroesophageal reflux disease): Plan: Continue pantoprazole Plan Full code VTE PPx: SCDs (will defer chemical DVT PPx for 24 hours in setting of stroke) Admission and Anticipated Discharge Date Admission Date: June 01, 2023 Subjective patient seen in the presence of his . He still having some left leg weakness and difficulty ambulating. He is however interested in going home more than going to a rehab center. Appreciate nephrology input with dual antiplatelet therapy with recommen dations outlined in their note patient himself feels back to his baseline he has no residual upper arm strength but does note he is having difficulty walking with his left leg being weak. 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 Sensation is intact. He is in sinus rhythm on the monitor he has no cardiac murmurs that I can auscultate Results & Data Results & Data Vital Signs (Past 12 Hours) Vital Signs Temp Pulse Pulse Resp BP Pulse Ox O2 Del Method 06/02/23 02:51 97.7 F 64 18 129/73 92 Room Air 06/01/23 23:03 97.9 F 65 18 118/63 92 Room Air 06/01/23 23:00 72 06/01/23 19:30 97.9 F 71 18 131/64 94 Room Air Laboratory Results reviewed CBC reviewed chemistry PG Care Time/CCT Total # of Minutes Spent Total Time Spent with Patient: Total time spent is greater than 50% in coordination of care (as documented) at patient's floor/unit and/or counseling patient: Coding Level of Care Code 40887 SUB INP/OBS CARE 2/35MIN Diagnoses Right-sided cerebrovascular accident (CVA) I63.9 History of stroke Z86.73 HTN (hypertension) I10 BPH with obstruction/lower urinary tract symptoms N40.1; N13.8 GERD (gastroesophageal reflux disease) K21.9
[2023-06-02 07:34] LABS: BUN Creatinine Ratio 14.4 (10-20); Calcium 9.8 mg/dl (8.6-10.3); Chol HDL Ratio 2.2 (0-5); Creatinine Clr Calc Pharmacy 50.1 ml/min; Est GFR (African American) 64.8 ml/min; Est GFR (Non-African American) 55.9 ml/min
[2023-06-02 08:06] LABS: Prothrombin Time 10.8 Seconds (9.0-12.0)
[2023-06-02] MEDS: PANTOprazole 40 MG TAB PO SCH ×2 (09:54→21:11)
[2023-06-02] MEDS: ASPIRIN 81 MG ECTAB PO SCH (09:54)
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
--- NOTE | 2023-06-02 13:23 | Pharmacy Report ---
- Date of Service June 02, 2023 - Pharmacy CVA/TIA Medication Review Medications to Prevent Stroke handout has been added to the patients discharge packet. Antiplatelet(s) * RADHA x 3 weeks - Aspirin 81mg + Clopidogrel 75mg PO daily x 3 weeks, then Clopidogrel alone Cholesterol * High intensity statin: atorvastatin 40 mg daily DVT Prophylaxis * [Heparin SQ] [Enoxaparin SQ] [SCD knee] [SCD thigh] * Pharmacologic and mechanical DVT prophylaxis deferred due to [] Therapeutic Anticoagulation * No history of Afib/Aflutter noted - neuro recommends completion of up-to-date 30-day mobile cardiac outpatient telemetry which can be coordinated with Dr. Sexton. If he is found to have atrial fibrillation, would then recommend Eliquis and aspirin 81 mg/day. Type 2 Diabetes * Patient does not have T2DM per A1c 5.6% in 2020. * New A1c pending.
[2023-06-02] MEDS: ATORVASTATIN 40 MG TAB PO SCH (21:11)
[2023-06-02] MEDS: TERAZOSIN HCL 1 MG CAP PO SCH (21:11)
[2023-06-02] MEDS: CLOPIDOGREL BISULFATE 75 MG TAB PO SCH (21:11)
[2023-06-03 06:31] LABS: Basophils # (auto) 0.04 K/uL (0.00-0.20); Basophils % (auto) 0.6 %; Eosinophils # (auto) 0.23 K/uL (0.00-0.50); Eosinophils % (auto) 3.3 %; Hematocrit (blood only) 36.5 % (42.0-52.0); Hemoglobin 12.5 g/dl (14.0-18.0); Immature Granulocytes # (auto) 0.03 K/uL (0.01-0.20); Immature Granulocytes % (auto) 0.4 %; Lymphocytes # (auto) 1.39 K/uL (1.20-3.40); Lymphocytes % (auto) 19.8 %; Mean Corpuscular Hemoglobin 29.4 pg (25.0-34.0); Mean Corpuscular Hgb Conc 34.2 g/dL (32.0-36.0); Mean Corpuscular Volume 85.9 fL (80.0-100.0); Mean Platelet Volume 10.3 fL (9.4-12.4); Monocytes # (auto) 0.76 K/uL (0.11-0.59); Monocytes % (auto) 10.8 %; Neutrophils # (auto) 4.56 K/uL (1.40-6.50); Neutrophils % (auto) 65.1 %; Platelet Count 174 K/uL (130-400); RDW Coefficient of Variation 12.8 % (11.5-14.5); RDW Standard Deviation 39.8 fL (36.4-46.3); Red Blood Count 4.25 M/uL (4.70-6.10); White Blood Count 7.01 K/ul (4.8-10.8)
[2023-06-03 06:39] LABS: BUN Creatinine Ratio 16.5 (10-20); Calcium 9.8 mg/dl (8.6-10.3); Creatinine Clr Calc Pharmacy 46.5 ml/min; Est GFR (African American) 59.3 ml/min; Est GFR (Non-African American) 51.2 ml/min
--- NOTE | 2023-06-03 06:59 | Electrocardiogram Report ---
Test Reason : Blood Pressure : / mmHG Vent. Rate : 068 BPM Atrial Rate : 068 BPM P-R Int : 180 ms QRS Dur : 140 ms QT Int : 426 ms P-R-T Axes : 017 063 -02 degrees QTc Int : 452 ms Normal sinus rhythm Right bundle branch block Abnormal ECG When compared with ECG of 19-JUN-2022 11:34, Right bundle branch block has replaced Non-specific intra-ventricular conduction delay Confirmed by Chris Hill ([id number]) on 06/01/2023 12:05:29 PM Referred By: REFERRED SELF Confirmed By:Nirmal Hill
[2023-06-03 07:09] LABS: Estimated Average Glucose 114 mg/dl; Hemoglobin A1C 5.6 % (4.5-5.6)
[2023-06-03] MEDS: ASPIRIN 81 MG ECTAB PO SCH (09:19)
[2023-06-03] MEDS: PANTOprazole 40 MG TAB PO SCH ×2 (09:19→20:00)
--- NOTE | 2023-06-03 10:46 | Pharmacy Report ---
- Date of Service June 03, 2023 - Pharmacy CVA/TIA Medication Review Medications to Prevent Stroke handout has been added to the patients discharge packet. Antiplatelet(s) * aspirin 81mg PO daily + clopidogrel 75mg PO daily X 21 days followed by clopidogrel 75mg daily Cholesterol * High intensity statin: atorvastatin 40 mg daily DVT Prophylaxis * SCD knee Therapeutic Anticoagulation * No history of Afib/Aflutter noted Type 2 Diabetes * Patient does not have T2DM
--- NOTE | 2023-06-03 14:05 | Hospitalist Progress Note ---
Date of Service June 03, 2023 Assessment & Plan (1) Right-sided cerebrovascular accident (CVA): Plan: Dizziness and left hand/leg numbness the morning of 06/01, he was outside the window for TNKase Hx of multifocal CVA 11/2019 involving facial droop; no facial droop or slurred speech on 06/01. Patient was given aspirin 324 mg in the ED, Telestroke recommended continuing on DAPT, aspirin 81 mg daily, in addition to Plavix 75 mg daily; recommend continuing for at least 3 weeks then dropping off aspirin and continuing Plavix only. Atrovastatin, a.m. fasting lipid panel Outpatient dry transfer man evaluation if atrial fibrillation is discovered with then recommend going to aspirin and anticoagulation over the Plavix itself. Head CT revealed NAF Head/neck CTA were unchanged; approximately 70% focal stenosis within the proximal right vertebral artery, and 40% narrowing within the left common carotid artery; however, this is unchanged from CTA H/N 11/2019 Brain MRI revealed a small acute infarct within the right posterior frontal lobe hold chemical DVT PPx for 24 hours in setting of stroke passed dysphagia screen in the ED Permissive HTN Echo on 12/01/2019 revealed no ASD, PFO, or evidence of cardiac shunting; will d efer new echo for now PT/OT consulted Recommend short-term rehab stay patient is now supportive of this as is his . (2) History of stroke: Plan: Hx of multifocal CVA on MRI 11/2019 Continue Aspirin, Plavix (3) HTN (hypertension): Plan: Hold amlodipine, losartan on 06/01, blood pressure remains low thru 06/03 Permissive HTN (as above) Labetalol 5mg IV as needed for SBP>220 or DBP>120 (4) BPH with obstruction/lower urinary tract symptoms: Plan: Continue terazosin (5) GERD (gastroesophageal reflux disease): Plan: Continue pantoprazole Plan Full code VTE PPx: SCDs (will defer chemical DVT PPx for 24 hours in setting of stroke) Admission and Anticipated Discharge Date Admission Date: June 01, 2023 Subjective patient seen in the presence of his . He still having some left leg weakness and difficulty ambulating. now is interested in going to a rehab center. 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 Sensation is intact. left knee has negative drawer testing, negative stephanie test, no joint effusion or joint line tenderness He is in sinus rhythm on the monitor he has no cardiac murmurs that I can auscultate Results & Data Results & Data Vital Signs (Past 12 Hours) Vital Signs Temp Pulse Pulse Resp BP BP Pulse Ox 06/03/23 12:49 98.2 F 65 18 98/63 L 95 06/03/23 08:23 98.2 F 69 18 121/63 95 06/03/23 08:00 81 06/03/23 03:25 97.7 F 70 18 109/56 L 94 O2 Del Method 06/03/23 12:49 Room Air 06/03/23 08:23 Room Air 06/03/23 08:00 06/03/23 03:25 Room Air Laboratory Results review cbc review prp PG Care Time/CCT Total # of Minutes Spent Total Time Spent with Patient: Total time spent is greater than 50% in coordination of care (as documented) at patient's floor/unit and/or counseling patient: Coding Level of Care Code 34263 SUB INP/OBS CARE 2/35MIN Diagnoses Right-sided cerebrovascular accident (CVA) I63.9 History of stroke Z86.73 HTN (hypertension) I10 BPH with obstruction/lower urinary tract symptoms N40.1; N13.8 GERD (gastroesophageal reflux disease) K21.9
[2023-06-03] MEDS ORDERED: IBUPROFEN 200 MG TAB PO PRN (14:16)
[2023-06-03] MEDS: ATORVASTATIN 40 MG TAB PO SCH (19:59)
[2023-06-03] MEDS: CLOPIDOGREL BISULFATE 75 MG TAB PO SCH (19:59)
[2023-06-03] MEDS: TERAZOSIN HCL 1 MG CAP PO SCH (20:00)
[2023-06-04 06:20] LABS: Basophils # (auto) 0.04 K/uL (0.00-0.20); Basophils % (auto) 0.6 %; Eosinophils # (auto) 0.24 K/uL (0.00-0.50); Eosinophils % (auto) 3.7 %; Hematocrit (blood only) 38.5 % (42.0-52.0); Hemoglobin 12.7 g/dl (14.0-18.0); Immature Granulocytes # (auto) 0.03 K/uL (0.01-0.20); Immature Granulocytes % (auto) 0.5 %; Lymphocytes # (auto) 1.03 K/uL (1.20-3.40); Lymphocytes % (auto) 15.8 %; Mean Corpuscular Hemoglobin 28.9 pg (25.0-34.0); Mean Corpuscular Volume 87.7 fL (80.0-100.0); Mean Platelet Volume 10.2 fL (9.4-12.4); Monocytes # (auto) 0.71 K/uL (0.11-0.59); Monocytes % (auto) 10.9 %; Neutrophils # (auto) 4.45 K/uL (1.40-6.50); Neutrophils % (auto) 68.5 %; Platelet Count 161 K/uL (130-400); RDW Coefficient of Variation 12.4 % (11.5-14.5); RDW Standard Deviation 40.2 fL (36.4-46.3); Red Blood Count 4.39 M/uL (4.70-6.10)
[2023-06-04 06:24] LABS: BUN Creatinine Ratio 17.6 (10-20); Calcium 9.8 mg/dl (8.6-10.3); Creatinine Clr Calc Pharmacy 47.3 ml/min; Est GFR (African American) 60.5 ml/min; Est GFR (Non-African American) 52.2 ml/min; Potassium 3.8 mmol/L (3.5-5.1)
[2023-06-04] MEDS: ASPIRIN 81 MG ECTAB PO SCH (08:46)
[2023-06-04] MEDS: PANTOprazole 40 MG TAB PO SCH ×2 (08:46→21:22)
--- NOTE | 2023-06-04 15:17 | Hospitalist Progress Note ---
Date of Service June 04, 2023 Assessment & Plan (1) Right-sided cerebrovascular accident (CVA): Plan: Dizziness and left hand/leg numbness the morning of 06/01, he was outside the window for TNKase Hx of multifocal CVA 11/2019 involving facial droop; no facial droop or slurred speech on 06/01, mostly left arm and leg weakness, now residual left leg weakness. Patient was given aspirin 324 mg in the ED, Telestroke recommended continuing on DAPT, aspirin 81 mg daily, in addition to Plavix 75 mg daily; recommend continuing for at least 3 weeks then dropping off aspirin and continuing Plavix only. Atrovastatin, a.m. fasting lipid panel Outpatient personnel monitor evaluation if atrial fibrillation is discovered with then recommend going to aspirin and anticoagulation over the Plavix itself. Head CT revealed NAF Head/neck CTA were unchanged; approximately 70% focal stenosis within the proximal right vertebral artery, and 40% narrowing within the left common carotid artery; however, this is unchanged from CTA H/N 11/2019 Brain MRI revealed a small acute infarct within the right posterior frontal lobe Echo on 12/01/2019 revealed no ASD, PFO, or evidence of cardiac shunting; will defer new echo for now PT/OT consulted Recommend short-term rehab stay patient is now supportive of this as is his . (2) History of stroke: Plan: Hx of multifocal CVA on MRI 11/2019 Continue Aspirin, Plavix (3) HTN (hypertension): Plan: Hold amlodipine, losartan on 06/01, blood pressure remains low thru 06/03 Permissive HTN (as above) Labetalol 5mg IV as needed for SBP>220 or DBP>120 (4) BPH with obstruction/lower urinary tract symptoms: Plan: Continue terazosin (5) GERD (gastroesophageal reflux disease): Plan: Continue pantoprazole Plan Full code VTE PPx: pt is ambulating in room Admission and Anticipated Discharge Date Admission Date: June 01, 2023 Subjective patient seen in the presence of his . He still having some left leg weakness and difficulty ambulating. now is interested in going to a rehab center. 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 Sensation is intact. left knee continues without pain or effusion He is in sinus rhythm on the monitor he has no cardiac murmurs that I can auscultate Results & Data Results & Data Vital Signs (Past 12 Hours) Vital Signs Temp Pulse Pulse Resp BP BP Pulse Ox 06/04/23 11:29 98.6 F 76 18 120/62 98 06/04/23 10:27 59 L 06/04/23 07:59 98.1 F 76 16 118/69 94 06/04/23 03:53 98.8 F 97 H 20 152/78 H 92 06/04/23 03:48 98.2 F 69 18 142/81 H 93 O2 Del Method O2 Flow Rate 06/04/23 11:29 Room Air 06/04/23 10:27 06/04/23 07:59 Room Air 06/04/23 03:53 Nasal Cannula 3 06/04/23 03:48 Room Air Laboratory Results Reviewed CBC reviewed chemistry PG Care Time/CCT Total # of Minutes Spent Total Time Spent with Patient: Total time spent is greater than 50% in coordination of care (as documented) at patient's floor/unit and/or counseling patient: Coding Level of Care Code 29931 SUB INP/OBS CARE 2/35MIN Diagnoses Right-sided cerebrovascular accident (CVA) I63.9 History of stroke Z86.73 HTN (hypertension) I10 BPH with obstruction/lower urinary tract symptoms N40.1; N13.8 GERD (gastroesophageal reflux disease) K21.9
[2023-06-04] MEDS ORDERED: amLODIPine BESYLATE 5 MG TAB PO SCH (21:00)
[2023-06-04] MEDS: TERAZOSIN HCL 1 MG CAP PO SCH (21:21)
[2023-06-04] MEDS: CLOPIDOGREL BISULFATE 75 MG TAB PO SCH (21:21)
[2023-06-04] MEDS: ATORVASTATIN 40 MG TAB PO SCH (21:22)
[2023-06-05] MEDS: ASPIRIN 81 MG ECTAB PO SCH (08:00)
[2023-06-05] MEDS: PANTOprazole 40 MG TAB PO SCH (08:00)
--- NOTE | 2023-06-05 08:55 | Neurology Progress Note ---
Date of Service June 05, 2023 Assessment & Plan (1) Right-sided cerebrovascular accident (CVA): (2) History of stroke: Plan Patient experienced an acute CVA of a very small nature high right frontal convexity resulting in some left-sided symptoms which have essentially resolved. Clinically he is doing fairly well today. Currently he has a gait disturbance secondary to hip and knee issue on the left. Strength is normal and symmetrical throughout. He is no other focal neurologic findings. CT angiography showed chronic proximal right vertebral artery 70% focal stenosis and 40% stenosis in the mid left common carotid artery. He has hypertension but this is being controlled. He is on atorvastatin 40 which controls his lipids (total cholesterol 112). Glucose is unremarkable. The patient has a history of previous strokes in November of 2019 (right cerebellar and right frontal). Recommendations: 1. 75 mg clopidogrel and 81 mg aspirin daily for a total of 3 weeks then go back to clopidogrel alone. 2. The patient would be a good rehabilitation hospital candidate for gait training, however, if he can not be admitted, an alternative would be home with outpatient services ( [facility] is an excellent rehabilitation service which comes to the house). 3. Continue atorvastatin 40 mg daily 4. Continue current blood pressure treatment 5. Follow-up in Neurology in 3-4 weeks with PA, if desired Overall, I spent a total of 50 minutes with this case including review of records, review of MRI films, direct evaluation the patient at bedside, report generation, and discussion of the case with the patient, , and RN at bedside, and Dr. Khan, including differential diagnosis and treatment options. Admission and Anticipated Discharge Date Admission Date: June 01, 2023 Subjective Feels well with no residual weakness. He was up walking multiple times yesterday. He does have some chronic left knee pain (preceded the stroke). He slept well last night and he is eating well. He has no headache or dizziness. MRI of the brain June 01 showed a very tiny high convexity acute stroke in the right frontal head region. There was moderate generalized atrophy and old small-vessel ischemic disease noted. I reviewed these films. Nursing reports no new issues. Echocardiogram May 27, done as an outpatient at [facility], revealed no significant issues. Results & Data Vital Signs (Past 12 Hours) Vital Signs Temp Pulse Pulse Pulse Resp BP BP 06/05/23 08:01 36.6 C 83 18 116/70 06/05/23 03:37 37.3 C 72 20 113/61 06/04/23 23:02 37 C 79 20 133/75 06/04/23 22:00 79 Pulse Ox O2 Del Method 06/05/23 08:01 94 Room Air 06/05/23 03:37 90 Room Air 06/04/23 23:02 93 Room Air 06/04/23 22:00 Exam (Neuro) Physical Exam: He is awake and alert. Speech is without aphasia or dysarthria. Mood is normal affect is appropriate. Thought processes seem intact to conversation. He is mildly hard of hearing. Extraocular eye muscles are intact without nystagmus. There is no facial droop. Tongue is midline. Stance sitting in bed with feet dangling is quite normal. Coordination is normal in the arms without tremor or ataxia. He is no ataxia with [id number] testing. He is good facility in the hands. Motor strength is essentially 5/5 diffusely in all major muscle groups in the arms and legs both proximally and distally. The patient can stand from sitting quite well. His gait is slightly wide-based. When he puts his feet together he sways some but does not lose his balance. He is slow and cautious with his gait limping slightly, favoring the left leg. Turns are slow but fairly stable. PG Care Time/CCT Total # of Minutes Spent Total Time Spent with Patient: Total time spent is greater than 50% in coordination of care (as documented) at patient's floor/unit and/or counseling patient: Coding Level of Care Code 38394 SUB INP/OBS CARE 3/50MIN Diagnoses Right-sided cerebrovascular accident (CVA) I63.9 History of stroke Z86.73 Time Spent (min) 50
--- NOTE | 2023-06-05 14:38 | Discharge Summary ---
Date of Service June 05, 2023 Admission HPI Per Admitting Provider Ronak is a pleasant 83-year-old male with PMH of CVA, BPH, lumbar spinal stenosis, depression, ataxia, GERD, HLD, and HTN. He presented to the ED because he thought he was having a stroke due to dizziness and left leg/hand numbness upon waking at 0600 on 06/01. Last known well 0600. He reports he woke up around 3 or 4 AM to go to the bathroom and was fine; however, when he woke up at 6 AM he felt dizzy on the side of the bed. Patient's (Chen) drove him into the hospital. Daughter (Ban) is also at the bedside and provides additional history. No recent falls. No recent trauma to the head, arms, or legs. Of note, patient did have a stroke in 2019 while sitting in a car, that involved facial droop. Today, he has not experienced any speech problems or facial droop. He did not take his morning medications; however he notes that he is good about taking his daily medications. He does not use a walker or cane at baseline. He denies a history of smoking, tobacco use, alcohol use, vaping, or recreational drug use. No recent rashes or tick bites. He is mildly hypertensive at 156/84 at time of admission. ED course: Aspirin 324 mg p.o. IVF ROS: Patient endorses dizziness (resolved), lightheadedness (resolved), numbness/tingling down the left leg and in the left hand/fingers. Patient denies slurred speech, facial droop, fever, chills, sweating, CONTRERAS, rashes, changes in vision/hearing/taste/smell, head pain, neck pain, chest pain, pleuritic CP, SOB, abdominal pain, N/V/D, urinary symptoms, burning with urination, pain in the left leg, or numbness/tingling/pain deficits on the right side. Principal Diagnosis acute right sided CVA left leg weakness Discharge Data Allergies Allergy/AdvReac Type Severity Reaction Status Date / Time lisinopril AdvReac Mild cough Verified 01/30/23 07:46 Consultations 06/01/23 09:43 ED Decision to Admit Stat 06/01/23 14:19 Consult Neurology Routine Ordered Studies 06/01/23 07:55 CT angio head w con Stat CT angio neck with con Stat CT head/brain wo con Stat 06/01/23 10:42 MRI Brain [MR brain wo con] Stat Hospital Course (1) Right-sided cerebrovascular accident (CVA): Dizziness and left hand/leg numbness the morning of 06/01, he was outside the window for TNKase Hx of multifocal CVA 11/2019 involving facial droop; no facial droop or slurred speech on 06/01, mostly left arm and leg weakness, now residual left leg weakness. Patient was given aspirin 324 mg in the ED, Telestroke recommended continuing on DAPT, aspirin 81 mg daily, in addition to Plavix 75 mg daily; recommend continuing for at least 3 weeks then dropping off aspirin and continuing Plavix only. Atorvastatin, continues at 40 mg Outpatient permanent waver evaluation if atrial fibrillation is discovered with then recommend going to aspirin and anticoagulation over the Plavix itself. Head CT revealed NAF Head/neck CTA were unchanged; approximately 70% focal stenosis within the proximal right vertebral artery, and 40% narrowing within the left common carotid artery; however, this is unchanged from CTA H/N 11/2019 Brain MRI revealed a small acute infarct within the right posterior frontal lobe Echo on 12/01/2019 revealed no ASD, PFO, or evidence of cardiac shunting; will defer new echo for now PT/OT consulted Recommend short-term rehab stay pt was denied by insurance, family opted to go home (2) History of stroke: Hx of multifocal CVA on MRI 11/2019 Continue Aspirin, Plavix (3) HTN (hypertension): Blood pressure remains low, restarting 5 mg amlodipine and holding losartan (4) BPH with obstruction/lower urinary tract symptoms: Continue terazosin (5) GERD (gastroesophageal reflux disease): Continue pantoprazole Plan Full code VTE PPx: pt is ambulating in room Total Time Total Time Spent Total Time Spent (In Minutes): It required greater than 30 minutes to prepare this patient for discharge. Please Discharge Plan Discharge Items Patient Disposition: Home - Home Health Services Reason For Visit: STROKE-LIKE SYMPTOMS Discharge Diagnosis: new stroke lower blood pressure left leg weakness and fatigue Activity: Per Instructions section Activity Comment: slowly increase activity Non-emergency contact: Primary Care Provider Call non-emergency contact if: your symptoms worsen Follow-up/Referrals: Jil Hoang MD [Primary Care Provider] - 06/13/23 8:00 am (Follow up scheduled on : 06/13/23 @ 8am. Your appointment is scheduled in the [facility]. [address] [place] [address] ) Diet: Regular Addtl Attending Provider Instructions: Your blood pressures have been low thru your stay. we will continue your amlodipine at 5 mg a day your overnight blood pressures were reviewed and although higher than your daytime readings, but they are not in a dangerous range please follow up with your primary care provider in a week or less please check your blood pressure readings at home please take a baby aspirin a day for the next 16 days then stop please see your outpt physical therapist Addtl Bass Singer Provider Instructions: Risk Factors for Stroke: You can reduce your chances of stroke by working with your medical provider to adopt a healthy lifestyle. Some specific ways to lower your chance of stroke are: * If you are a smoker, now is the time to stop smoking cigarettes * If you are diabetic, improve the control of your blood sugars * Avoid excessive amounts of alcohol * Control high blood pressure * Lose weight if you are overweight * Be sure to lead an active lifestyle * Eat a healthy diet low in salt, cholesterol and fat You should know about other risk factors for stroke that you are unable to control. These include: * Age 55 years or older * Male gender * Certain racial groups: , or / * Family History of Stroke, Mini stroke or Heart Attack * Sickle Cell Disease Follow Up: It is important for you to keep your follow up appointments with your medical provider. Who to Call and When: Medical Emergencies: Call 911 immediately if you experience any of the following warning signs and symptoms of Stroke: * Sudden numbness or weakness of the face, arm or leg, especially on one side of the body * Sudden confusion, trouble speaking or understanding * Sudden trouble seeing in one or both eyes * Sudden trouble walking, dizziness, loss of balance or coordination * Sudden severe headache with no cause Do not delay calling 911 if you experience any warning signs or symptoms of a stroke. Delay in seeking medical attention may affect what treatments can be given to you. . Pending Studies at Discharge: No Stand-Alone Forms: [facility], Smoking Cessation, Medications to Prevent Stroke Medications and DC Order Prescriptions: New aspirin 81 mg Tablet,Delayed Release (Dr/Ec) 81 mg PO QAM Qty: 16 0RF Continued pantoprazole 20 mg tablet,delayed release (DR/EC) 40 mg PO BID Rx Instructions: per pharmacy 40mg daily Centrum Silver 0.4-300-250 mg-mcg-mcg tablet 1 tab PO QAM atorvastatin [Lipitor] 40 mg tablet 40 mg PO PM clopidogrel [Plavix] 75 mg tablet 75 mg PO PM Patient Comments: ON HOLD UNTIL AFTER SURGERY terazosin 1 mg Tablet 1 mg PO HS Changed amlodipine 5 mg tablet 5 mg PO PM Qty: 30 0RF Rx Instructions: per pharmacy 10 mg daily Held losartan 50 mg Tablet 50 mg PO BIDM Hold Instructions: Resume on 06/19/23. Discharge Orders: Discharge Order (Routine); Ordered 06/05/23 Ordered By: Martin Khan Admission Data Admit Date/Time: 06/01/23 12:40 Attending Provider: Martin Khan Admit Provider: Сергей Quick Primary Care Provider: Jil Hoang Other Providers: Сергей Quick; Charlie Ruiz; [facility] Coding Level of Care Code 65802 INP/OBS DISCH >30 MIN Diagnoses Right-sided cerebrovascular accident (CVA) I63.9 History of stroke Z86.73 HTN (hypertension) I10 BPH with obstruction/lower urinary tract symptoms N40.1; N13.8 GERD (gastroesophageal reflux disease) K21.9
== END 2023-06-05 14:51 | disposition home health service (06) | DRG 65 ==
LOC: ED 07:40 → 2E 12:40 → SUATTDRO 12:40 → 2E 13:33
DX: Z86.73 Personal history of transient ischemic attack (TIA), and cerebral infarction without residual deficits; N13.8 Other obstructive and reflux uropathy; I65.01 Occlusion and stenosis of right vertebral artery; Z88.8 Allergy status to other drugs, medicaments and biological substances; E78.5 Hyperlipidemia, unspecified; G81.94 Hemiplegia, unspecified affecting left nondominant side; I65.22 Occlusion and stenosis of left carotid artery; I67.89 Other cerebrovascular disease; R29.702 NIHSS score 2; I63.89 Other cerebral infarction; Z79.02 Long term (current) use of antithrombotics/antiplatelets; Q28.1 Other malformations of precerebral vessels; K21.9 Gastro-esophageal reflux disease without esophagitis; N40.1 Benign prostatic hyperplasia with lower urinary tract symptoms; I95.9 Hypotension, unspecified; I10 Essential (primary) hypertension; Z79.899 Other long term (current) drug therapy

== ENCOUNTER 2024-02-22 10:49 | Observation (INO) ==
--- OUTSIDE RECORDS SUMMARY | 2024-02-22 10:54 | External Medical Summary | Continuity of Care Document ---
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 Name Role Phone DglornaJennie cast Primary Care Physician [phone] Encounter [facility] [id number] Date(s): 02/19/24 - 02/19/24 [facility] [address], [address] [place] [address] [phone] Encounter Diagnosis Ascending aorta dilation(Discharge Diagnosis) - 02/19/24 HBP (high blood pressure)(Discharge Diagnosis) - 02/19/24 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 artery(Discharge Diagnosis) - 02/19/24 Hyperlipidemia(Discharge Diagnosis) - 02/19/24 Discharge Disposition: Home or Self Care Attending Physician: DO Sexton Jason D Referring Physician: DO Sexton Jason D Allergies, Adverse Reactions, Alerts Substance Criticality Severity Reaction Reaction Severity Status lisinopril cough Active Assessment and Plan Extracted from: Title:Cardiology Office Visit Note Author:DO Sexton Jason D Date:02/19/24 1.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 We did discuss if he pushes himself given the fact that the right coronary artery is totally occluded he may still have some anginal symptoms. If his blood pressure is high and have asked him to check his pressure at home, there is room to adjust his antianginal regimen. Have asked that he check his blood pressure once a day after sitting for 5 minutes and if he is consistently above 130 to let us know. The challenge at his age is always trying to avoid making him orthostatic. If the bruising gets worse we can reduce his aspirin or even discontinue his aspirin and leave him on Plavix. We discussed to be on Plavix for a complete year after his stent and then remain on aspirin for life. There is room to either use beta-blockers or long-acting nitrates as antianginals. He needs a repeat echocardiogram to assess his aortic root and ascending aorta. His aorta is 4.7 cm. I will try to avoid operating on him unless he had rapid growth suggesting an unstable aneurysm. Otherwise I would not consider intervening unless he gets to 5-1/2 cm and then have a lengthy conversation about the risks and benefits of surgery at 84. What is reassuring is visit to the aneurysm has not changed over the last year. He will need an echo in 6 months when he returns. He needs a lipid profile and complete metabolic profile when he returns in 6 months as well. Will see him back in 6 months with his testing. Sooner if there are any issues. Immunizations Given and Recorded Vaccine [...] Comment: 2021-05-25: Historical information-source unspecified Medications amLODIPine 5 mg oral tablet Start: 12/17/23 10:53:00 AM EDT, 1 tab, PO, Daily, Disp# 90 tab, Refills: 3, Pharmacy: [id number] Start Date: 12/17/23 Stop Date: 12/11/24 Status: Ordered amLODIPine 5 mg oral tablet Start: 12/17/23 10:51:00 AM EDT, 1 tab, PO, Daily, Disp# 90 tab, Refills: 3, Pharmacy: [id number] Start Date: 12/17/23 Stop Date: 12/11/24 Status: Ordered aspirin 81 mg oral delayed release tablet Start: 09/17/23 2:39:00 PM EDT, 1 tab, PO, Daily Start Date: 09/17/23 Status: Ordered atorvastatin 40 mg oral tablet Start: 12/09/23 10:11:00 AM EDT, See Instructions, Disp# 90 tab, Refills: 3, take 1 tablet by mouth daily, Pharmacy: [facility][id number] Start Date: 12/09/23 Status: Ordered clopidogrel 75 mg oral tablet Start: 01/31/24 9:34:00 AM EDT, See Instructions, Disp# 90 tab, Refills: 3, take 1 tablet by mouth daily, Pharmacy: [id number] Start Date: 01/31/24 Status: Ordered diclofenac 1% topical gel Start: 03/13/23 9:26:00 AM EDT, See Instructions, Disp# 300 g, Refills: 1, apply topically 4 grams TO THE LEFT KNEE FOUR TIMES A DAY, Pharmacy: [facility] #[id number] Start Date: 03/13/23 Status: Ordered losartan 50 mg oral tablet Start: 07/22/23 4:25:00 PM EST, 0.5 tab, PO, bid, Disp# 90 tab, Refills: 3, DOSE CHANGE, Note to Pharmacy: DOSE CHANGE, Pharmacy: [facility] #[id number] Start Date: 07/22/23 Status: Ordered multivitamin Start: 04/27/20 9:13:00 AM EST, 1 tab, PO, Daily Start Date: 04/27/20 Status: Ordered nitroglycerin 0.4 mg sublingual tablet Start: 09/17/23 2:45:00 PM EDT, 1 tab, SL, q5min, Disp# 25 tab, Refills: 1, not to exceed 3 doses/15min--if pain persists, seek medical attention must be dispensed & stored in original containers, PRN: as needed for chest pain, Pharmacy: [facility] #[id number] Start Date: 09/17/23 Status: Ordered pantoprazole 40 mg oral delayed release tablet Start: 08/19/23 3:26:00 PM EST, See Instructions, Disp# 180 tab, Refills: 3, TAKE ONE TABLET BY MOUTH TWICE DAILY Start Date: 08/19/23 Status: Ordered terazosin 1 mg oral capsule Start: 02/15/23 3:33:00 PM EDT, 1 cap, PO, Daily, Disp# 90 cap, Refills: 3, Pharmacy: [facility] #[id number] Start Date: 02/15/23 Stop Date: 02/10/24 Status: Ordered Mental Status 02/19/24 Barriers to Learning one year None evide nt Mandatory Health Literacy Documentation Yes Health Literacy Communication Barriers N ever Primary Language British Problem List Condition Confirmation Course Effective Dates Status Health Status Informant Renal cyst, acquired, left Confirmed Active Arthritis of right knee Confirmed Active Arthritis of left knee Confirmed Active Atherosclerosis of aorta 1 Confirmed Active Benign hypertension without CHF Confirmed Active BPH (benign prostatic hypertrophy) Confirmed Active Carpal tunnel syndrome Confirmed Active Chest pain Confirmed Active Chronic cough Confirmed Active Chronic kidney disease Confirmed Active Chronic kidney disease stage 3A (disorder) Confirmed Active Other symptoms and signs involving cognitive functions and awareness Confirmed Active Digital warts Confirmed Active Diverticular disease Confirmed Active Diverticulosis Confirmed Active Duodenal ulcer 2 Confirmed Active Dysplastic nevus 3 Confirmed Active ED (erectile dysfunction) Confirmed Active ELEVATED PROSTATE SPECIFIC ANTIGEN [PSA] Confirmed Active Elevated uric acid Confirmed Active Esophagitis Confirmed Active Family history of colon cancer 4 Confirmed Active Fatigue Confirmed Active Other fatigue Confirmed Active Chronic GERD Confirmed Active H/O actinic keratosis 5 Confirmed Active HBP (high blood pressure) Confirmed Active Hearing decreased Confirmed Active History of gout Confirmed Active Hoarseness, persistent Confirmed Active Hypercalcemia Confirmed Active Hyperlipidemia Confirmed Active Hyperparathyroidism Confirmed Active KIDNEY STONES Confirmed Active Left elbow pain Confirmed Active Right knee pain Confirmed Active PATELLAR DISLOCATION 6 Confirmed Active Prostatism Confirmed Active Other sequelae of cerebral infarction Confirmed Active Testosterone deficiency Confirmed Active Tubular adenoma Confirmed 11/18/03 Active Vitamin D deficiency Confirmed Active - XR Chest 1 View FINDINGS: Tortuosity of the thoracic aorta with atherosclerotic calcification. 2H. pylori neg 3left back 4mother , at 79 5right cheek, left ear 6H/O Diagnosis Diagnosis Type Effective Dates Health Status Clinical Service Informant HBP (high blood pressure) Discharge Diagnosis 02/19/24 Hyperlipidemia Discharge Diagnosis 02/19/24 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 artery Discharge Diagnosis 02/19/24 Non-Specified Ascending aorta dilation Discharge Diagnosis 02/19/24 Non-Specified Procedures Procedure Date Related Diagnosis Body Site Status Implantation of insertable l oop recorder 1 08/15/23 Completed X-ray of both knees 2 01/03/23 Com pleted Carpal tunnel release 3 02/23/21 C ompleted Carpal tunnel release 4 05/03/[address] angiography of chest with contrast 5 03/25/20 Completed MRI of abdomen and pelvis 6 08/21/17 Completed MRI of orbits 7 08/21/17 Completed Chest x-ray 8 08/20/17 Completed X-ray of thoracic spine 9 08/20/17 Completed CXR - Chest X-ray 10 08/12/[address] of abdomen and pelvis 11 08/11/17 Completed Chest x-ray 12 07/26/[address] of abdomen and pelvis 13 06/19/16 Completed MRI of the brain combo 14 04/24/[address] head w/o contrast 15 04/13/[address] of cervical spine 16 04/13/[address] of head 17 12/29/15 Completed X-ray of cervical spine 18 12/29/15 Completed CXR - Chest X-ray 19 12/21/15 Comp leted Colonoscopy 20 10/11/15 Completed Mohs surgery 10/11/14 Completed TURP - Transurethral resecti on of prostate 21 06/02/13 Completed colonoscopy normal 10/09/06 Comple hipolito colostomy reversal 2005 Comple hipolito sigmoid colectomy 2005 Comp leted colonoscopy 23 11/18/03 Completed Tympanoplasty 1990 Complete d left knee arthroscopy 1986 Com pleted right knee arthroscopy 1976 Co mpleted pilonidal cystectomy 1962 Comp leted Endoscopy 25 Completed surgical removal foreign body [facility] Impression: 1. No acute fracture or dislocation 2. Tricompartmentral osteoarthritis of the knees, severe within the right lateral compartment 3Right Wrist Open Carpal Tunnel Release 4Left 51. Marked progression in the lower lobe and [...] Endotracheal tube 2 cm above the sobeida. 6[facility] Impression: 1. 9.1 cm left renal cyst. No solid renal lesion 2. Cholelithiasis 7[facility] Impression: 1. No radiopaque foreign bodies identified within the orbits 8No convincing evidence of acute displaced right rib fracture Multiple old Right rib fractures. No acute cardiopulmonary disease. 9[facility] Impression: 1. Degenerative changes without acute fracture or subluxation identified 10No acute cardiopulmonary findings. No change in appearance of the chest. 11[facility] Impression: 1. Punctate nonobstructing left renal calculus 2. 8.4 cm left renal cyst 3. Cholelithiasis 4. No evidence of bowel obstruction. No evidence of free air 5. Right internal hernia and multiple fat-containing ventral hernias 12[facility] Impression: 1. No active disease in the chest 13No acute or inflammatory findings, post-op changes of sigmoid colon w/colocolonic anastamosis, no obstruction, moderate colonic fecal retention, cardiolmegaly, hiatal hernia, hepatomaly, hepatic steatosis, mild splenomegaly 14[facility] Impression: 1. Age related changes as above with no acute intracranial abnormality 15[facility] Impression: 1. No acute intracranial abnormalities 16[facility] Impression: 1. No acute abnormalities. No fracture seen 17No acute intracranial abnormality. 18Moderate degenerative change. No acute bony abnormality. 19no active disease. 20patent end to side colo-colonic anastromisos, characterized by healthy appearing mucos the disatl rectum and anal verge are normal on retroflexion view no speciments collected repeat in 5 yrs. 21laser 22for perforated diverticulitis 23tubular adenomas 24right 25at [facility] on 2015 Vital Signs Most recent to oldest [Reference Range]: 1 Patient Weight 86 kg (02/19/24 11:29 AM) Heart Rate 83 bpm (02/19/24 11:29 AM) Blood Pressure 140/74mmHg (02/19/24 11:29 AM) BP Location # 1 Left Arm (02/19/24 11:29 AM) Social History Social History Type Response Smoking Status Never smoked cigaret eve Sex Male Sex Representation Male (finding) Cardiology Outpatient Note * DO Sexton Jason D: PERFORM Event Display: Cardiology Outpt Note Authored Date: [id number] Primary Care Provider SIVAKUMAR Stock Jessica A Referring Provider DO Sexton Jason D Chief Complaint 4 mon f/u. History of Present Illness He is doing really well with rehab. She has had a marked improvement in his aerobic capacity. To his provide Wagner is about 60 feet without any limitations. He can walk in the grocery store pushing the cart without any cardiac symptoms. [place] distance and hadsome mild throat discomfort. It did not radiate anywhere. He sat for about 15 seconds to 30 seconds and it went away. This is the only episode of angina he has had since his angioplasty and stenting of his LAD. He had some low blood pressures after that fair it sounds like he had a GI illness and got dehydrated. Overall his blood pressures at home on the slightly high side. He has some bruising on his forearms related to dual antiplatelet therapy. He denies any dark stools or black stools. Has had no palpitations or fluttering. He has no lower extremity edema. He is remarkable for almost 84. PMHX: 1. s/p cardiac catheterization 09/16 at [facility] with GHAZALA to the LAD, 100% chronic RCA occlusion without intervention. 3. Hyperlipidemia. 4. History of prior lacunar infarcts, most recently 11/2019 involving the right cerebellum and the right posterior frontal lobe. 5.Echo 05/27/2023 showing normal LVEF with EF of 65%, dilated aortic root at 4.7 cm and ascending aorta at 4.2 cm, mild aortic stenosis, moderate tricuspid regurgitation, normal PA pressures 7. CVA 05/2023 8. Event recorder 07/2023 w/o Afib 9. Implantable loop 07/2023 Physical Exam Vitals & Measurements HR:83(Monitored) BP:140/74 SpO2:98% WT:86.000kg(Dosing) WT:86kg Patient is awake alert and oriented x3and in no acute distress HEENT:2+ carotid upstrokes, no evidence of carotid bruits LUNGS:Clear to auscultation bilaterally no rales rhonchi or wheezing HEART:Regular rate and rhythmno appreciable murmurs rubs or gallops EXTREMITIES:No evidence of clubbing cyanosis or edema PSYCHIATRIC:Patient's affect appeared appropriate Assessment/Plan 1.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 We did discuss if he pushes himself given the fact that the right coronary artery is totally occluded he may still have some anginal symptoms. If his blood pressure is high and have asked him to check his p ressure at home, there is room to adjust his antianginal regimen. Have asked that he check his blood pressure once a day after sitting for 5 minutes and if he is consistently above 130 to let us know. The challenge at his age is always trying to avoid making him orthostatic. If the bruising gets worse we can reduce his aspirin or even discontinue his aspirin and leave him on Plavix. We discussed to be on Plavix for a complete year after his stent and then remain on aspirin for life. There is room to either use beta-blockers or long-acting nitrates as antianginals. He needs a repeat echocardiogram to assess his aortic root and ascending aorta. His aorta is 4.7 cm. I will try to avoid operating on him unless he had rapid growth suggesting an unstable aneurysm. Otherwise I would not consider intervening unless he gets to 5-1/2 cm and then have a lengthy co nversation about the risks and benefits of surgery at 84. What is reassuring is visit to the aneurysm has not changed over the last year. He will need an echo in 6 months when he returns. He needs a lipid profile and complete metabolic profile when he returns in 6 months as well. Will see him back in 6 months with his testing. Sooner if there are any issues. Problem List/Past Medical History Ongoing Arthritis of left knee Arthritis of right knee Atherosclerosis of aorta [...] decreased History of basal cell carcinoma of skin| Status: Inactive History of gout Hoarseness, persistent Hypercalcemia Hyperparathyroidism KIDNEY STONES Left elbow pain Other fatigue Other sequelae of cerebral infarction Other symptoms and signs involving cognitive functions and awareness PATELLAR DISLOCATION Prostatism Renal cyst, acquired, left Right knee pain Testosterone deficiency Tubular adenoma Vitamin D deficiency Resolved Acute diverticulitis Acute ischemic multifocal multiple vascular territories stroke Acute low back pain with sciatica Acute pharyngitis Anger Bursitis CONCUSSION Concussion without loss of consciousness, subsequent encounter Cough Diverticulitis Glucose intolerance Left wrist pain Major hemoptysis Olecranon bursitis Personal history UTI Plantar wart, left foot Pre-op examination Right hand pain Right shoulder TIA Urinary retention Procedure/Surgical History Implantation of insertable loop recorder| Service Date: 08/15/2023X-ray of both knees| Service Date: 3Carpal tunnel release| Service Date: 02/23/2021arpal tunnel release| Service Date: 05/03/2020CT angiography of chest with contrast| Service Date: 03/25/2020MRI of orbits| Service Date: 08/21/2017MRI of abdomen and pelvis| Service Date: 08/21/2017Chest x-ray| Service Date: 08/20/2017X-ray of thoracic spine| Service Date: 08/20/2017CXR - Chest X-ray| Service Date: 08/12/2017CT of abdomen and pelvis| Service Date: 08/11/2017Chest x-ray| Service Date:07/26/2016CT of abdomen and pelvis| Service Date: 06/19/2016MRI of the brain combo| Service Date: 04/24/2016CT of cervical spine| Service Date: 04/13/2016CT head w/o contrast| Service Date: 04/13/2016CT of head| Service Date: 12/29/2015X- ray of cervical spine| Service Date: 12/29/2015CXR - Chest X-ray| Service Date: 12/21/2015Colonoscopy| Service Date: 10/11/2015Mohs surgery| Service Date: 10/11/2014TURP - Transurethral resection of prostate| Service Date: 06/02/2013colonoscopy normal| Service Date: 10/09/2006colostomy reversal| Service Date: 2005sigmoidcolectomy| Service Date: 2005colonoscopy| Service Date: 11/18/2003Tympanoplasty| Service Date: 1990left knee arthroscopy| Service Date: 1986right knee arthroscopy| Service Date: 1976pilonidal cystectomy| Service Date: 1962surgical removal foreign body left eyeEndoscopy Medications amLODIPine(amLODIPine 5 mg oral tablet), 5 mg= 1 tab, PO, Daily, 3 refills amLODIPine(amLODIPine 5 mg oral tablet), 5 mg= 1 tab, PO, Daily, 3 refills aspirin(aspirin 81 mg oral delayed release tablet), 81 mg= 1 tab, PO, Daily atorvastatin(atorvastatin 40 mg oral tablet), See Instructions, 3 refills clopidogrel(clopidogrel 75 mg oral tablet), See Instructions, 3 refills diclofenac topical(diclofenac 1% topical gel), See Instructions losartan(losartan 50 mg oral tablet), 25 mg= 0.5 tab, PO, bid, 3 refills multivitamin, 1 tab, PO, Daily nitroglycerin(nitroglycerin 0.4 mg sublingual tablet), 0.4 mg= 1 tab, SL, q5min, PRN, 1 refills pantoprazole(pantoprazole 40 mg oral delayed release tablet), [...] - 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 [place] [address] [place] Name: SIVAKUMAR Alcazar, Kira Position: Physician Self Propelled Hot Mix Roller Operator - Neurosurgery Member Role: Lifetime Relationship Address: [facility] [address] [place] [address] [place] Name: SIVAKUMAR Stock, Jennie Loza Position: Physician Asst Exmpt - Family Med Member Role: Primary Care Provider Address: [address] [facility] [address] [place] [address] [place] Care Team Related Persons Name: CRISTI DINH Name: JAYY ZAMUDIO"
[2024-02-22] MEDS: OPTIRAY 320 125ml IV ONE (11:08)
--- NOTE | 2024-02-22 11:20 | CT Scan Report ---
CT OF THE HEAD WITHOUT CONTRAST CLINICAL HISTORY: neuro deficit, acute stroke suspected. Left-sided weakness. COMPARISON STUDY: Head CT September 22, 2023. MRI of the brain June 11, 2023. TECHNIQUE: Helical axial images of the head were obtained without IV contrast. Automated exposure con trol was utilized for the study. A dose lowering technique was utilized adhering to the principles o f ALARA. FINDINGS: No acute intracranial hemorrhage, midline shift or mass effect is present. White matter hyp odensities are unchanged and favor small vessel disease. The ventricular system is unremarkable. The basal cisterns are patent. No extra-axial collections are present. There are no findings to suggest a cute dural sinus thrombosis or acute territorial infarct. No significant calvarial abnormalities are present. Visualized portions of the sinuses and mastoid air cells are clear. IMPRESSION: No acute intracranial findings. ACT 112: Negative or not required by law. Electronically signed by: Valdemar Evans M.D. 02/22/2024 11:19 AM
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
--- NOTE | 2024-02-22 11:27 | CT Scan Report ---
CT ANGIOGRAPHY OF THE NECK WITH CONTRAST CLINICAL HISTORY: neuro deficit, acute stroke suspected COMPARISON STUDY: CTA of the neck June 11, 2023. Technique: CT angiography of the carotid and vertebral arteries was obtained using Optiray and 3D rec onstruction on an independent workstation. NASCET criteria was utilized. Automated exposure control was utilized for the study. A dose lowering technique was utilized adhering to the principles of ALA RA. CT DOSE: 1186.84 mGy.cm Findings: There are no cervical spine fractures. No cervical lymphadenopathy is present. The left britany tebral artery is hypoplastic. 70% stenosis at the origin of the right vertebral artery is unchanged. 40% stenosis of the mid left common carotid artery is unchanged. There is extensive plaque within the proximal right internal carotid artery without stenosis. There is moderate plaque within the left ca rotid bifurcation without stenosis. The appearance of the neck vessels is unchanged. There is no aneu rysm or dissection within the neck. IMPRESSION: 1. Moderate atherosclerotic plaque within the proximal bilateral internal carotid arteries without st enosis. 2. No change in 40% stenosis of the mid left common carotid artery. 3. No change in 70% stenosis of the proximal right vertebral artery. ACT 112: Negative or not required by law. Electronically signed by: Valdemar Evans M.D. 02/22/2024 11:24 AM
--- NOTE | 2024-02-22 11:31 | CT Scan Report ---
CTA ANGIOGRAPHY OF THE HEAD CLINICAL HISTORY: neuro deficit, acute stroke suspected COMPARISON STUDY: CTA of the head June 11, 2023. TECHNIQUE: Helical axial images of the head were obtained following uneventful intravenous administr ation of 120 cc of Optiray. Sagittal and coronal reconstructions were viewed as well as maximal inten sity projections on an independent 3-D workstation. Automated exposure control was utilized for the study. A dose lowering technique was utilized adhering to the principles of ALARA. FINDINGS: No acute intracranial hemorrhage, midline shift or mass effect is present. Ventricular syst em is normal. Basal cisterns are patent. The bilateral M1, M2, A1 and A2 segments are patent. No vess el occlusion is identified. The left vertebral artery is hypoplastic. There is persistence of t he left posterior cerebral artery. There is no intracranial aneurysm or dissection. There is mild ath erosclerotic plaque within the cavernous carotids without stenosis. IMPRESSION: No large vessel occlusion. No intracranial aneurysm. ACT 112: Negative or not required by law. Electronically signed by: Valdemar Evans M.D. 02/22/2024 11:28 AM
[2024-02-22 11:34] LABS: Basophils # (auto) 0.04 K/uL (0.00-0.20); Basophils % (auto) 0.7 %; Hematocrit (blood only) 40.1 % (42.0-52.0); Hemoglobin 13.6 g/dl (14.0-18.0); Immature Granulocytes # (auto) 0.02 K/uL (0.01-0.20); Immature Granulocytes % (auto) 0.3 %; Lymphocytes # (auto) 1.26 K/uL (1.20-3.40); Lymphocytes % (auto) 21.1 %; Mean Corpuscular Hemoglobin 29.2 pg (25.0-34.0); Mean Corpuscular Hgb Conc 33.9 g/dL (32.0-36.0); Mean Corpuscular Volume 86.1 fL (80.0-100.0); Mean Platelet Volume 10.2 fL (9.4-12.4); Monocytes # (auto) 0.57 K/uL (0.11-0.59); Monocytes % (auto) 9.6 %; Neutrophils # (auto) 3.77 K/uL (1.40-6.50); Neutrophils % (auto) 63.3 %; Platelet Count 195 K/uL (130-400); RDW Coefficient of Variation 12.9 % (11.5-14.5); RDW Standard Deviation 40.8 fL (36.4-46.3); Red Blood Count 4.66 M/uL (4.70-6.10); White Blood Count 5.96 K/ul (4.8-10.8)
[2024-02-22 11:44] LABS: Albumin Globulin Ratio 1.8 (0.9-2); Albumin Level 4.5 gm/dl (3.4-5.0); BUN Creatinine Ratio 14.3 (10-20); Bilirubin,Total 0.9 mg/dl (0.2-1.0); Calcium 10.5 mg/dl (8.6-10.3); Creatinine Clr Calc Pharmacy 49.4 ml/min; Est GFR (African American) 64.2 ml/min; Est GFR (Non-African American) 55.4 ml/min; Globulin 2.5 gm/dl (2.5-4.0); Magnesium 2.2 mg/dl (1.7-2.4); Potassium 4.6 mmol/L (3.5-5.1)
[2024-02-22 11:50] LABS: Troponin I High Sensitivity 7.4 pg/ml (0-20)
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
[2024-02-22 12:02] LABS: Partial Thromboplastin Time 26 Seconds (21-31); Prothrombin Time 10.5 Seconds (9.0-12.0)
--- NOTE | 2024-02-22 12:02 | XRay Report ---
XR chest 1V portable CLINICAL HISTORY: neuro deficit, acute stroke suspected COMPARISON STUDY: Chest CT March 25, 2020. Chest radiograph September 22, 2023. FINDINGS: Lung volumes are diminished. There is no consolidation to suggest pneumonia. There is no ev idence for overt pulmonary edema. Cardiomediastinal silhouette is stable. There are multiple old righ t-sided rib fractures. Slight prominence of the vasculature is likely technical. IMPRESSION: No acute cardiopulmonary findings. Hypoventilatory study. ACT 112: Negative or not required by law. Electronically signed by: Valdemar Evans M.D. 02/22/2024 12:01 PM
[2024-02-22 13:31] VITALS: RESP 18
--- NOTE | 2024-02-22 14:18 | Magnetic Resonance Report ---
MRI OF THE BRAIN WITHOUT CONTRAST CLINICAL HISTORY: Stroke-like symptoms COMPARISON STUDY: MRI of the brain June 01, 2023. Head CT and CTA of the head performed earlier to day. TECHNIQUE: Utilizing a 1.5 Mar[place]ruz magnet and dedicated coil, multiplanar, multiecho imaging of the bra in was performed without IV contrast. FINDINGS: There are a few punctate foci of increased signal intensity within the posterior right fron se lobe on diffusion-weighted sequence images 20, 21 and 22 of 25. Correlation with the ADC map is d ifficult given their small size. Several small old infarct within the right frontal lobe are present. Ventricular system is unremarkable. The basal cisterns are patent. There are no extra axial collecti ons. There is an old small infarct within the right cerebellar hemisphere. This is unchanged since pr evious MRI. White matter T2 hyperintense foci suggest small vessel disease. No calvarial lesions are identified. There is no evidence for sinusitis. IMPRESSION: 1. A few equivocal punctate acute infarcts within the posterior right frontal lobe. No mass effect. N o hemorrhage. 2. Several small old right frontal lobe infarcts. ACT 112: Negative or not required by law. Electronically signed by: Valdemar Evans M.D. 02/22/2024 2:15 PM
[2024-02-22] MEDS ORDERED: DICLOFENAC SOD 1% GEL 100 GM TUBE EXT PRN (14:35)
[2024-02-22] MEDS ORDERED: PHARMACIST DISCHARGE MED REC CONSULT PRN (14:35)
[2024-02-22] MEDS ORDERED: LABETALOL HCL IV 5 MG/ML 20ML IV PRN (18:55)
[2024-02-22] MEDS: ATORVASTATIN 40 MG TAB PO SCH (20:09)
[2024-02-22] MEDS: PANTOprazole 40 MG TAB PO SCH (20:09)
[2024-02-22] MEDS ORDERED: amLODIPine BESYLATE 5 MG TAB PO SCH (21:00)
[2024-02-22] MEDS ORDERED: LOSARTAN POTASSIUM 25 MG TAB PO SCH (21:00)
[2024-02-23 06:55] LABS: Hematocrit (blood only) 37.9 % (42.0-52.0); Hemoglobin 12.4 g/dl (14.0-18.0); Mean Corpuscular Hemoglobin 28.4 pg (25.0-34.0); Mean Corpuscular Hgb Conc 32.7 g/dL (32.0-36.0); Mean Corpuscular Volume 86.9 fL (80.0-100.0); Platelet Count 177 K/uL (130-400); RDW Coefficient of Variation 12.8 % (11.5-14.5); RDW Standard Deviation 40.8 fL (36.4-46.3); Red Blood Count 4.36 M/uL (4.70-6.10)
--- NOTE | 2024-02-23 07:21 | Electrocardiogram Report ---
Test Reason : Blood Pressure : */* mmHG Vent. Rate : 65 BPM Atrial Rate : 65 BPM P-R Int : 198 ms QRS Dur : 130 ms QT Int : 430 ms P-R-T Axes : 34 67 6 degrees QTcB Int : 447 ms Normal sinus rhythm with sinus arrhythmia Right bundle branch block Abnormal ECG When compared with ECG of 22-Sep-2023 08:27, Minimal criteria for Inferior infarct are no longer Present Confirmed by Chris Hill ([id number]) on 02/23/2024 7:21:03 AM Referred By: Confirmed By: Chris Hill
[2024-02-23 07:22] LABS: BUN Creatinine Ratio 14.4 (10-20); Calcium 9.7 mg/dl (8.6-10.3); Chol HDL Ratio 2.5 (0-5); Creatinine Clr Calc Pharmacy 45.8 ml/min; Est GFR (African American) 64.8 ml/min; Est GFR (Non-African American) 55.9 ml/min; Potassium 4.1 mmol/L (3.5-5.1)
--- NOTE | 2024-02-23 07:26 | Electrocardiogram Report ---
Test Reason : Blood Pressure : */* mmHG Vent. Rate : 56 BPM Atrial Rate : 56 BPM P-R Int : 188 ms QRS Dur : 136 ms QT Int : 436 ms P-R-T Axes : 30 70 24 degrees QTcB Int : 420 ms Sinus bradycardia with PACs Right bundle branch block Abnormal ECG When compared with ECG of 22-Feb-2024 11:21, (unconfirmed) No significant change was found Confirmed by Chris Hill ([id number]) on 02/23/2024 7:26:19 AM Referred By: REFERRED SELF Confirmed By: Chris Hill
[2024-02-23] MEDS: ACETAMINOPHEN 325 MG TAB PO PRN (07:29)
[2024-02-23] MEDS: CLOPIDOGREL BISULFATE 75 MG TAB PO SCH (07:30)
[2024-02-23] MEDS: ASPIRIN 81 MG ECTAB PO SCH (07:30)
[2024-02-23 08:30] VITALS: TEMP 97.9; O2SAT 94
[2024-02-23 09:06] LABS: Estimated Average Glucose 120 mg/dl; Hemoglobin A1C 5.8 % (4.5-5.6)
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
[2024-02-23] MEDS: ROSUVASTATIN CALCIUM 20 MG TAB PO SCH (10:01)
[2024-02-23 11:12] VITALS: BP 99/61
--- NOTE | 2024-02-23 14:15 | XCELERA ---
[id number] [id number]
[2024-02-23] MEDS ORDERED: STROKE PATIENT DISCHARGE STA (15:16)
[2024-02-23 15:23] VITALS: PULSE 66
--- NOTE | 2024-02-23 15:25 | Discharge Summary ---
Discharge Summary Date of Service February 23, 2024 Principal Dx & Hospital Course #1 = Principal Diagnosis (1) Ischemic stroke: Patient woke up on 02/21 around 8 AM and reports he felt lightheaded at rest. He then took a nap until 930, and woke up with some confusion and expressive aphasia that lasted for approximately 10 minutes No facial droop, slurred speech, or unilateral deficits He has been on dual antiplatelet therapy with aspirin and Plavix since cardiac stents placed 6 months ago. He is already on atorvastatin 40 mg daily and has fairly good blood pressure control at home although reports he occasionally has blood pressures in the 140s and 150s systolic. He checks his blood pressure regularly twice a day. He does not have diabetes as evidenced by a hemoglobin A1c here of 5.8% Lipid panel with total cholesterol 117, LDL [address] on arrival revealed no acute findings Head and neck CTA with unchanged right vertebral 70% stenosis and 40% left ICA as well as extensive right ICA plaque without stenosis-unchanged from prior Brain MRI here did confirm a few punctate acute infarcts in posterior right frontal lobe as well as several small old right frontal lobe infarcts and old small infarct and right cerebellar hemisphere Prior echocardiogram in the past with negative bubble study, but repeat echocardiogram here to look for thrombus was negative And interrogation of his loop recorder only showed a couple brief episodes of bradycardia but no atrial fibrillation or flutter-he has had his loop recorder in place for 7 months with no occult A-fib found thus far Given extensive plaque in right carotid artery, recommend changing atorvastatin to rosuvastatin 40 mg daily Continue aspirin and Plavix Continue same blood pressure meds for now for permissive hypertension but follow-up with PCP in close order to potentially adjust doses of medications for improved blood pressure control as an outpatient Patient had no deficits and was seen by neurology, stable for discharge to home (2) Carotid arterial disease: As noted above, change atorvastatin to rosuvastatin Continue aspirin and Plavix (3) HTN (hypertension): Permissive HTN in the setting of acute stroke Continue home medications on discharge (4) GERD (gastroesophageal reflux disease): Continue PPI Plan Disposition: Discharge to home DVT prophylaxis-SCDs Discussed all care with at the bedside Also discussed care with neurology Notes For Next Care Provider Check LFTs, lipid panel in 4 to 6 weeks given change to rosuvastatin May need improved blood pressure control as an outpatient Medication Changes From Visit Discontinue atorvastatin Started rosuvastatin 40 mg p.o. daily Admission HPI Per Admitting Provider Ronak is an 83-year-old gentleman with PMH of CVA, multifocal vascular territory infarcts, BPH, and radiculopathy. He presented after waking up with lightheadedness on 02/21. Patient woke up around 8 AM, and said he felt lightheaded while at rest. He then took his morning meds, and took a nap and woke up again at 9:30 AM. When he woke up, he started feeling out something slips, but was having difficulty and said he felt confused. In the car ride to the hospital, he endorsed word finding difficulty and was unable to speak (per patient's ). No facial droop. No slurred speech. No unilateral deficits. He is currently wearing a loop recorder over concern for atrial fibrillation. He does have history of a right posterior CVA in May 2023 with residual left-sided deficits, however he recently completed rehab for these deficits. Patient did take aspirin and Plavix this morning. He reports his symptoms lasted for approximately 10 minutes, and had fully resolved by ED arrival. It should be noted that patient had a heart stent placed in August 2023. He took his morning medications; no recent change in medications. No recent falls or injuries to the head or neck. Patient does not use ambulatory assist devices at home. Patient reports that he does not feel like he had a stroke this morning, as it did not feel similar to prior strokes. However the word finding difficulty was a new symptom for him. He denies smoking, tobacco use, recent alcohol use. No sick contacts. At time of admission, patient reports his symptoms have resolved completely and he does express a desire to return home if possible. Patient is hypertensive at 174/86; vitals otherwise stable. ED course: ROS: Patient endorses lightheadedness while sitting at rest this morning, and word- finding difficulty. Patient denies fever, chills, night-sweats, syncope, rashes, tick bites, headache, dizziness (like the room is spinning), changes in vision, neck pain/stiffness, facial droop, slurred speech, unilateral deficits, chest pain, chest palpitations, SOB, cough, abdominal pain, nausea, vomiting, diarrhea (resolved), changes in urinary/bowel habits, burning with urination, dysuria, or numbness/tingling in the arms or legs. Discharge Exam Constitutional WD/WN, vitals as above Eyes PERRL, conjunctivae normal, anicteric sclerae ENMT external ear and nose normal, oropharynx normal Neck trachea midline, no thyromegaly Respiratory normal respiratory effort, lungs clear to auscultation Cardiovascular RRR, no murmur, no edema Chest (Breasts) Chest: normal inspection of chest Gastrointestinal (Abdomen) normal bowel sounds, soft, nontender, no hepatosplenomegaly Musculoskeletal Extremities: extremities normal to inspection; no cyanosis and no clubbing Skin no rashes, warm and dry Neurologic moves all extremities and awake; no focal motor deficits Speech / Cognition: normal speech and no expressive aphasia Psychiatric A+Ox3, euthymic affect Lymphatic no lymphedema Discharge Plan Discharge Items Patient Disposition: Home - Self-Care Reason For Visit: STROKE-LIKE SYMPTOMS Discharge Diagnosis: Acute ischemic stroke Condition on Discharge: Good Activity: Resume your previous activity Non-emergency contact: Primary Care Provider Call non-emergency contact if: you have any medication questions and your symptoms worsen Follow-up/Referrals: Jil Hoang MD [Primary Care Provider] - (Please call to make a follow-up appointment within 1 week) Diet: Heart Healthy Addtl Attending Provider Instructions: You were admitted for difficulty with your speech and were found to have a new stroke in the right front part of your brain. Fortunately, your symptoms resolved. This recurrent stroke is likely due to the plaque buildup in the artery in your neck. You should continue on the aspirin and Plavix, but your atorvastatin will be switched to a higher intensity medication for cholesterol and plaque stabilization called rosuvastatin (Crestor). You should talk to your primary care physician about improving blood pressure control and continue to check your blood pressure twice daily at home as you have been. Your loop recorder was interrogated and you have had some occasional episodes of low heart rate but no atrial fibrillation. Risk Factors for Stroke: You can reduce your chances of stroke by working with your medical provider to adopt a healthy lifestyle. Some specific ways to lower your chance of stroke are: * If you are a smoker, now is the time to stop smoking cigarettes * If you are diabetic, improve the control of your blood sugars * Avoid excessive amounts of alcohol * Control high blood pressure * Lose weight if you are overweight * Be sure to lead an active lifestyle * Eat a healthy diet low in salt, cholesterol and fat You should know about other risk factors for stroke that you are unable to control. These include: * Age 55 years or older * Male gender * Certain racial groups: , or / * Family History of Stroke, Mini stroke or Heart Attack * Sickle Cell Disease Follow Up: It is important for you to keep your follow up appointments with your medical provider. Who to Call and When: Medical Emergencies: Call 911 immediately if you experience any of the following warning signs and symptoms of Stroke: * Sudden numbness or weakness of the face, arm or leg, especially on one side of the body * Sudden confusion, trouble speaking or understanding * Sudden trouble seeing in one or both eyes * Sudden trouble walking, dizziness, loss of balance or coordination * Sudden severe headache with no cause Do not delay calling 911 if you experience any warning signs or symptoms of a stroke. Delay in seeking medical attention may affect what treatments can be given to you. . Pending Studies at Discharge: No Stand-Alone Forms: My [facility] Medications and DC Order Prescriptions: New rosuvastatin 40 mg tablet 40 mg PO QAM Qty: 30 0RF Continued pantoprazole 40 mg tablet,delayed release (DR/EC) 40 mg PO BID Centrum Silver 0.4-300-250 mg-mcg-mcg tablet 1 tab PO QAM losartan 50 mg Tablet 25 mg PO BID Hold Instructions: Resume on 06/19/23. clopidogrel [Plavix] 75 mg tablet 75 mg PO QAM Patient Comments: ON HOLD UNTIL AFTER SURGERY terazosin 1 mg Tablet 1 mg PO HS amlodipine 5 mg tablet 5 mg PO PM Qty: 30 0RF Rx Instructions: per pharmacy 10 mg daily aspirin [Aspir-81] 81 mg Tablet,Delayed Release (Dr/Ec) 81 mg PO QAM nitroglycerin 0.4 mg tablet, sublingual 0.4 mg sublingual UD PRN (Reason: Other) diclofenac sodium [Voltaren] 1 % Gel 1 ea TOPICAL UD PRN (Reason: Other) Discontinued atorvastatin [Lipitor] 40 mg tablet 40 mg PO PM Discharge Orders: Discharge Order (Routine); Ordered 02/23/24 Ordered By: Claudia Cee Admission Data Admit Date/Time: 02/22/24 12:58 Attending Provider: Claudia Cee Admit Provider: Сергей Quick Primary Care Provider: Jil Hoagn Other Providers: Сергей Quick; Jonny Mccartney Hospital Stay Data Consultations 02/22/24 12:01 ED Decision to Admit Stat 02/22/24 18:43 Consult Neurology Routine Diagnostic Imagining Performed 02/22/24 11:01 CT angio head w con Stat CT angio neck with con Stat CT head/brain wo con Stat 02/22/24 12:18 MRI Brain [MR brain wo con] Stat Echocardiogram Pending Results Patient Have Any Pending Studies at Discharge: No Discharge Instructions Given to Patient (Per Discharging Provider) You were admitted for difficulty with your speech and were found to have a new stroke in the right front part of your brain. Fortunately, your symptoms resolved. This recurrent stroke is likely due to the plaque buildup in the artery in your neck. You should continue on the aspirin and Plavix, but your atorvastatin will be switched to a higher intensity medication for cholesterol and plaque stabilization called rosuvastatin (Crestor). You should talk to your primary care physician about improving blood pressure control and continue to check your blood pressure twice daily at home as you have been. Your loop recorder was interrogated and you have had some occasional episodes of low heart rate but no atrial fibrillation. Risk Factors for Stroke: You can reduce your chances of stroke by working with your medical provider to adopt a healthy lifestyle. Some specific ways to lower your chance of stroke are: * If you are a smoker, now is the time to stop smoking cigarettes * If you are diabetic, improve the control of your blood sugars * Avoid excessive amounts of alcohol * Control high blood pressure * Lose weight if you are overweight * Be sure to lead an active lifestyle * Eat a healthy diet low in salt, cholesterol and fat You should know about other risk factors for stroke that you are unable to control. These include: * Age 55 years or older * Male gender * Certain racial groups: , or / * Family History of Stroke, Mini stroke or Heart Attack * Sickle Cell Disease Follow Up: It is important for you to keep your follow up appointments with your medical provider. Who to Call and When: Medical Emergencies: Call 911 immediately if you experience any of the following warning signs and symptoms of Stroke: * Sudden numbness or weakness of the face, arm or leg, especially on one side of the body * Sudden confusion, trouble speaking or understanding * Sudden trouble seeing in one or both eyes * Sudden trouble walking, dizziness, loss of balance or coordination * Sudden severe headache with no cause Do not delay calling 911 if you experience any warning signs or symptoms of a stroke. Delay in seeking medical attention may affect what treatments can be given to you. . Total Time Total Time Spent Total Time Spent (In Minutes): 40 minutes Total Time Includes: Examination of the Patient, Discharge Planning, Medication Reconciliation and Communication With Other Providers (Neurology) Coding Level of Care Code 53091 INP/OBS DISCH >30 MIN Diagnoses Ischemic stroke I63.9 Carotid arterial disease I77.9 Carotid artery disease type: unspecified Laterality: unspecified laterality HTN (hypertension) I10 GERD (gastroesophageal reflux disease) K21.9
== END 2024-02-23 15:40 | disposition home or self-care (01) ==
LOC: ED 10:49 → 4W 10:49 → SUATTDRO 12:58 → 4W 13:37